=== PATIENT | female | born 1970 | race Caucasian/White ===

== ENCOUNTER 2023-01-11 14:06 | Outpatient (AMB) | payer BC, SELFPAY ==
--- NOTE | 2023-01-11 14:13 | A.SPINEOV_ITS ---
Intake Intake Visit Reasons: Lower back and neck pain Intake Note: Ms. Kam is here today c/o low back and neck pain. MRI done @ [facility]/brought disc. 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 HPI: This patient states that she has progressive lumbar back pain that radiates down both legs. The symptoms started 15 years ago. In addition to the pain she complains of tingling and numbness down the legs to the feet. The pain is constantly present and independent of activities such as walking or standing. She has tried physical therapy chiropractic therapy injections in the form of epidural and radiofrequency ablations and acupuncture. PMH: Hypertension, sleep apnea, interstitial cystitis, migraine, partial thyroidectomy, cervical fusion, hysterectomy, parotidectomy, occipital nerve stimulator Medications: Neurontin, Cymbalta, Inderal, lisinopril, Synthroid, Estradiol patch, Zofran, Cyclobenzaprine, trazodone Allergies: Demerol, Compazine, Reglan, Phenergan, triptans Social history: Nonsmoker Physical Exam: Height 5 ft weight 140 lb. Flexion-extension of the lumbar spine shows no restrictions but does elicit pain with extension. His pain on palpation in lumbar region. Straight leg raise negative bilaterally. No motor sensory deficits. Radiological Studies: A CT scan of the lumbar spine at [facility] only contains axial images. A seems to be moderate spinal stenosis at L4-5. Obtained standing x-rays today with flexion-extension that show severe degenerative disc disease L4-5. No instability. Impression/Plan: This 52-year-old female is suffering from progressive debilitating back pain for which she exhausted all conservative treatments. I requested to add coronal and sagittal images to the CT scan for review. She will return to my office with those images to discuss treatment options. Thank you for allowing me to participate in your patients care. total time spent was 45 minutes in counseling ,coordination of plan, personal review of imaging, and subsequent plan Rico Garcia MD, PhD Spine Fellowship Trained Neurosurgeon Director, [facility] Orders: Orders XR lumbar spine 4V min Today M51.36 - Other intervertebral disc degeneration, lumbar region Coding Level of Care Code New Pt Level 4 (91375) Diagnoses Degeneration of lumbar intervertebral disc M51.36
== END 2023-01-11 15:06 | disposition home or self-care (01) ==
LOC: HO.HNS 14:07
PROVIDERS: Visit Provider Neurological Surgery
DX: M51.36 Other intervertebral disc degeneration, lumbar region (principal)
CPT/HCPCS: 99204

== ENCOUNTER 2023-01-11 14:06 | Outpatient (REF) | payer BC, SELFPAY ==
--- NOTE | ~2023-01-11 | XR_ITS ---
EXAMINATION: XR LUMBOSACRAL SPINE CLINICAL INFORMATION: Reason for Exam M51.36 - Other intervertebral disc degeneration, lumbar region COMPARISON: None TECHNIQUE: 4 views of the lumbar spine FINDINGS: Transitional lumbosacral anatomy with sacralization of L5 and rudimentary L5-S1 disc space and a broad-based right L5 transverse process pseudoarticulating with the sacrum. Vertebral body heights are maintained. Minimal retrolisthesis of L4 on L5. No instability on flexion extension views. Moderate degenerative disc disease at L4-L5 with loss of disc space height and endplate sclerosis. Paravertebral soft tissues are unremarkable. XR/XR lumbar spine 4V min IMPRESSION: 1. Transitional lumbosacral anatomy with sacralization of L5 and rudimentary L5-S1 disc space and a broad-based right L5 transverse process pseudoarticulating with the sacrum. If intervention is being considered recommend total spine radiographs to ensure accurate numbering. 2. Moderate degenerative disc disease at L4-L5 with loss of disc space height and endplate sclerosis. 3. Minimal retrolisthesis of L4 on L5.
== END 2023-01-11 14:07 | disposition home or self-care (01) ==
LOC: HO.HOSX 14:06
PROVIDERS: Visit Provider Neurological Surgery
DX: M51.36 Other intervertebral disc degeneration, lumbar region (principal)
CPT/HCPCS: 72110

== ENCOUNTER 2023-01-26 13:21 | Outpatient (AMB) | payer BC, SELFPAY ==
--- NOTE | 2023-01-26 13:27 | A.SPINEOV_ITS ---
Intake Intake Visit Reasons: F/u lumbar CT Scan Intake Note: Ms. Kam is here today to discuss the results to her CT Scan, done @ [facility]/brought disc. 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 As you know she suffering from buttock pain radiating down both legs more severe with walking and standing. This CT scan without contrast shows moderate L4-5 stenosis. The patient is going to send me the CT report for me to verify my findings. I discussed with her that a lumbar laminotomy is to address her leg symptoms are not any form of back pain. I will contact her after reviewing the CT report. Possibly, a CT myelogram is required if the radiologist and I disagree on the findings. Rico Garcia MD, PhD Spine Fellowship Trained Neurosurgeon Director, [facility] Coding Level of Care Code Est Pt Level 1 (19805) Diagnoses Degeneration of lumbar intervertebral disc M51.36 Lumbar stenosis with neurogenic claudication M48.062
== END 2023-01-26 13:58 | disposition home or self-care (01) ==
PROVIDERS: PCP Internal Medicine; Visit Provider Neurological Surgery
DX: M51.36 Other intervertebral disc degeneration, lumbar region (principal); M48.062 Spinal stenosis, lumbar region with neurogenic claudication

== ENCOUNTER → 2023-01-26 13:21 | Outpatient (BNVA) | payer BC, SELFPAY | PROVIDERS: PCP Internal Medicine; Visit Provider Neurological Surgery | DX: M51.36 Other intervertebral disc degeneration, lumbar region (principal); M48.062 Spinal stenosis, lumbar region with neurogenic claudication | CPT/HCPCS: 99211 ==

== ENCOUNTER 2023-04-19 11:36 | Day surgery (SDC) | payer BC, SELFPAY ==
--- NOTE | ~2023-04-19 | CT_ITS ---
EXAMINATION: CT LUMBAR SPINE WITHOUT CONTRAST CLINICAL INFORMATION: Post myelogram COMPARISON: None available. TECHNIQUE: Multidetector CT acquisitions of the lumbar spine after administration of intrathecal contrast. This CT examination was performed using dose optimization techniques as appropriate, variously including the following: *Automated exposure control *Adjustment of mA and/or kV according to patient size (this includes techniques or standardized protocols for targeted exams where dose is matched to indication/reason for exam; i.e. extremities or head) *Use of iterative reconstruction technique DLP; 388 mGy-cm FINDINGS: Transitional anatomy with sacralization of the L5. No acute fracture. The vertebral body heights are preserved. Mild disc height loss at L4-L5 with associated vacuum disc phenomenon. Very dense contrast material seen at the level of L4-L5 and extending caudally. Less dense contrast is seen extending cranially from L4-L5. There is however no loss of contrast opacification or significant effacement of contrast signal at any level through the spine. T12-L1: No significant spinal canal or neural foraminal narrowing. L1-L2: No significant spinal canal or neural foraminal narrowing. L2-L3: Mild diffuse disc bulge. No significant spinal canal or neural foraminal narrowing. L3-L4: Mild diffuse disc bulge. No significant spinal canal or neural foraminal narrowing. L4-L5: Left foraminal disc protrusion. No significant spinal canal stenosis. Mild left neural foraminal narrowing L5-S1: No significant spinal canal or neural foraminal narrowing. The paravertebral soft tissues are unremarkable. CT/CT lumbar spine wo IV con IMPRESSION: -Transitional anatomy with sacralization of the L5 vertebral body. -No loss of contrast opacification or significant effacement of contrast signal at any level through the spine to suggest significant spinal canal stenosis. -Mild left neural foraminal narrowing is seen at L4-L5.
--- NOTE | ~2023-04-19 | FL_ITS ---
Fluoroscopic lumbar myelogram Indication: Neurogenic claudication. Patient unable to get an MRI due to occipital stimulator Risks and benefits and possible complications were discussed with the patient and the consent form was signed. Patient was placed prone on the fluoroscopy table. The back was prepped and draped in routine sterile fashion. Betadine was used as a skin antiseptic. Utilizing fluoroscopic guidance, the L3-4 level was accessed with a 22 gauge quinkie spinal needle and clear CSF fluid was observed from the needle hub. A total of 10 mL of Isovue-M 200 was then injected through the needle and into the thecal sac. The needle was removed without immediate complications. Total fluoroscopy time: 1 minute 16 seconds FL/FL myelogram spine lumbosacral Impression: Fluoroscopic lumbar myelogram This procedure was performed by Champ Ross PA-C and supervised by Dr. Walters.
[2023-04-19 12:00] VITALS: BMI 28.9
[2023-04-19 12:07] LABS: MANUAL DIFF FLAG NO
[2023-04-19 12:10] LABS: Basophils Percent Auto 0.7 % (0-2); Eosinophils Absolute Auto 0.1 X10*3/uL (0.0-0.4); Eosinophils Percent Auto 1.7 % (0-4); Hematocrit 41.4 % (37.0-47.0); Hemoglobin 13.3 g/dl (12.0-16.0); Imm Gran Abs Auto 0.01 X10*3/uL (0.00-0.03); Imm Gran Pct Auto 0.2 % (0.0-0.4); Lymphocytes Absolute Auto 1.3 X10*3/uL (1.2-4.9); Lymphocytes Percent Auto 31.1 % (20-40); Mean Corpuscular HGB Conc 32.1 g/dl (31.0-35.0); Mean Corpuscular Hemoglobin 28.9 pg (27.0-33.0); Mean Corpuscular Volume 89.8 fL (80.0-98.0); Mean Platelet Volume 8.3 fL (9.4-12.3); Monocytes Absolute Auto 0.3 X10*3/uL (0.1-1.2); Monocytes Percent Auto 6.7 % (2-11); Neutrophils Absolute Auto 2.4 x10*3/uL (2.0-8.3); Neutrophils Percent Auto 59.6 % (45-73); Platelet Count 250 X10*3/uL (160-400); Red Blood Count 4.61 X10*6/uL (4.20-5.50); Red Cell Distribution Width 13.1 % (11.0-16.0)
[2023-04-19 12:18] LABS: INTERNATIONAL NORM RATIO 0.8 (0.9-1.1); Prothrombin Time 10.2 SEC (11.1-13.3)
[2023-04-19 12:21] LABS: Partial Thromboplastin Time 34.4 SEC (26.0-36.4)
[2023-04-19 14:00] VITALS: BP 126/79; PULSE 70; RESP 16; TEMP 36.6; O2SAT 95
[2023-04-19 14:15] VITALS: BP 131/83; PULSE 67; RESP 16; O2SAT 96
[2023-04-19 14:30] VITALS: BP 126/84; PULSE 70; RESP 16; O2SAT 94
[2023-04-19 14:45] VITALS: BP 126/79; PULSE 69; RESP 16; O2SAT 95
[2023-04-19 15:04] VITALS: BP 136/92; PULSE 79; RESP 16; TEMP 36.6; O2SAT 95
--- NOTE | 2023-05-12 11:55 | PC.NURSE ---
05/12/2023 chart review for QA
== END 2023-04-19 15:10 | disposition home or self-care (01) ==
PROVIDERS: Physician Assistant Surgical; Radiology Vascular & Interventional Radiology; PCP Internal Medicine; Visit Provider Physician Assistant
DX: M48.062 Spinal stenosis, lumbar region with neurogenic claudication (principal); M79.605 Pain in left leg; M79.604 Pain in right leg; Z96.82 Presence of neurostimulator; M51.36 Other intervertebral disc degeneration, lumbar region
CPT/HCPCS: 36415; 62304; 72131; 85025; 85610; 85730; Q9967

== ENCOUNTER → 2023-04-19 12:46 | Outpatient (BNV) | payer BC, SELFPAY | PROVIDERS: PCP Internal Medicine; Visit Provider Radiology Vascular & Interventional Radiology | DX: M48.062 Spinal stenosis, lumbar region with neurogenic claudication (principal); Z96.82 Presence of neurostimulator | CPT/HCPCS: 62304 ==

== ENCOUNTER 2023-05-13 15:01 | Outpatient (REF) | payer BC, SELFPAY | END 2023-05-13 15:02 | disposition home or self-care (01) | LOC: HO.HOSX 15:01 | PROVIDERS: PCP Internal Medicine; Visit Provider Physician Assistant | DX: M50.90 Cervical disc disorder, unspecified, unspecified cervical region (principal); M51.36 Other intervertebral disc degeneration, lumbar region; M48.062 Spinal stenosis, lumbar region with neurogenic claudication | CPT/HCPCS: 72050 ==

== ENCOUNTER 2023-05-13 15:01 | Outpatient (AMB) | payer BC, SELFPAY ==
--- NOTE | 2023-05-13 15:29 | MHC.OFFVIS ---
Intake Intake Visit Reasons: discuss sx Allergies meperidine [From Demerol] Allergy (Verified 04/19/23 12:04) Hallucinations metoclopramide [From Reglan] Allergy (Verified 04/19/23 12:04) Swelling prochlorperazine [From Compazine] Allergy (Verified 04/19/23 12:04) Swelling promethazine [From Phenergan] Allergy (Verified 04/19/23 12:04) Swelling Eanvpvpl-[id number] Antimigraine Agents Allergy (Verified 04/19/23 12:04) Swelling Assessment & Plan Assessment & Plan (1) Cervical disc disorder: Code(s): M50.90 - Cervical disc disorder, unspecified, unspecified cervical region (2) Degeneration of lumbar intervertebral disc: Code(s): M51.36 - Other intervertebral disc degeneration, lumbar region (3) Lumbar stenosis with neurogenic claudication: Code(s): M48.062 - Spinal stenosis, lumbar region with neurogenic claudication Plan Mrs Kam is following up here in the office today. She previously saw Dr. Garcia for complaints of back pain radiating into her hips. She had a CT myelogram done here at [place] which did not show any evidence of nerve compression. She has transitional anatomy and what we would call L5-S1 does have degenerative disc disease with some near meyg-xo-bkuo contact in the posterior edge of the disc space and laterally. She is absolutely frustrated with her quality of life. Standing and walking gives her constant backache which makes her want to sit down. She will even have trouble at night sometimes lying down. We discussed the fact that back pain can be very difficult to establish the source. She has responded to injections in the past but they affect were temporary. She does not recall where she had these done or the spinal level where they were done. It was somewhere in [place]. She is exhausted all the other typical conservative treatments and at this point is just relying on pain medications to get by including Neurontin, Cymbalta and Flexeril as well as skai-zvk-bbaayhf medications. Her quality of life is quite poor. I will review her imaging with Dr. Garcia and see if he would be willing to consider L5-S1 fusion to this disc space. We did briefly discuss the fact that the success rates her about 60-70%. I will get back to the patient after I review the films with Dr. Garcia. However, during our conversation she also reports a significant amount of neck pain. She had a previous anterior cervical fusion with Dr. Garcia. It was done when he was at [facility] about 10 or 12 years ago. She has been having significant neck pain with numbness of her arms. On my examination she is demonstrating no focal weakness but she does have hyperreflexia with a Justa sign on the right hand and a left 2 beats of clonus in her left foot. This could be a residual effect from a previous spinal cord injury dating back to before her original neck surgery, or a new disc herniation or adjacent segment disease around the fusion. Because she can not have an MRI because of a neuro stimulator for migraines, I will order another CT myelogram of the cervical spine to rule out spinal cord compression and myelopathy. Total amount of time spent in this visit was 20 minutes in discussion of symptoms, lumbar CT myelo imaging results and subsequent plan of care Cristino Garcia MD,PhD [facility] Orders: Orders CT lumbar post myelography 2 Weeks M50.90 - Cervical disc disorder, unspecified, unspecified cervical region XR cervical spine 4V Today M50.90 - Cervical disc disorder, unspecified, unspecified cervical region FL myelogram spine cervical Today M50.90 - Cervical disc disorder, unspecified, unspecified cervical region Coding Level of Care Code Est Pt Level 3 (32852) Diagnoses Cervical disc disorder M50.90 Degeneration of lumbar intervertebral disc M51.36 Lumbar stenosis with neurogenic claudication M48.062
== END 2023-05-13 15:45 | disposition home or self-care (01) ==
PROVIDERS: PCP Internal Medicine; Visit Provider Physician Assistant
DX: M50.90 Cervical disc disorder, unspecified, unspecified cervical region (principal); M51.36 Other intervertebral disc degeneration, lumbar region; M48.062 Spinal stenosis, lumbar region with neurogenic claudication
CPT/HCPCS: 99213

== ENCOUNTER 2023-09-07 09:27 | Day surgery (SDC) | payer BC, SELFPAY ==
--- NOTE | ~2023-09-07 | FL_ITS ---
FLUOROSCOPIC GUIDED CERVICAL MYELOGRAM INDICATION: Neck pain. Patient unable to have MRI. TECHNIQUE: Risks and benefits and possible complications were discussed with the patient and the consent form was signed. Patient was placed prone on the fluoroscopy table. The back was prepped and draped in routine sterile fashion. Betadine was used as a skin antiseptic. Utilizing fluoroscopic guidance, the L3-4 interlaminar space was accessed with a 22 gauge quinkie spinal needle and clear CSF fluid was observed. . 10 mL of Isovue-M 300 was then injected through the needle and contrast was observed entering the thecal sac. A small amount of contrast was also noted to enter the epidural/subdural space. The spine needle was then advanced another 0.5 cm, in which CSF was still observed flowing from the needle hub. The remaining 10 mL of Isovue-M 300 was then injected through the needle and contrast was observed entering the thecal sac, without any further filling of the epidural space. The needle was then removed. The fluoroscopic table was then tilted in the Trendelenburg position, and contrast was observed flowing towards the cervical spine. The patient was then sent to CT for post myelographic imaging. Total fluoroscopy time: 1 minute 32 seconds min. FL/FL myelogram spine cervical IMPRESSION: Successful intrathecal instillation of Isovue-M 300. Patient will be transported to CT for post myelographic imaging. This procedure was performed by Champ Ross PA-C and supervised by Dr. Kim.
--- NOTE | ~2023-09-07 | CT_ITS ---
EXAMINATION: CT CERVICAL SPINE WITHOUT CONTRAST CLINICAL INFORMATION: Neck pain, unable to have MRI COMPARISON: Cervical spine x-ray on 05/13/2023 TECHNIQUE: Multiple 3.0 and 0.6 mm axial images were obtained from base of skull to T1 levels after intrathecal injection of 10 mL Isovue-M 300. Sagittal and coronal 2.0 mm bone window images were reconstructed from axial image data. This CT examination was performed using dose optimization techniques as appropriate, variously including the following: *Automated exposure control *Adjustment of mA and/or kV according to patient size (this includes techniques or standardized protocols for targeted exams where dose is matched to indication/reason for exam; i.e. extremities or head) *Use of iterative reconstruction technique DLP: 266 mGy-cm FINDINGS: There is normal filling of the skull base cerebral spinal fluid space and cervical thecal sac with contrast. The visualized cervical spinal cord is normal in caliber and position. No extrinsic compression or displacement is seen. C1/C2: Bony structures are intact with normal alignment. There is no spinal stenosis. C2/C3: Bony structures are intact with normal alignment. There is no spinal stenosis. Bilateral C2/C3 neuroforamina are patent. Bilateral apophyseal joints are intact with normal alignment. C3/C4: Bony structures are intact with normal alignment. There is no spinal stenosis. Bilateral C3/C4 neuroforamina are patent. Bilateral apophyseal joints are intact with normal alignment. C4/C5: Bony structures are intact with normal alignment. There is no spinal stenosis. Bilateral C4/C5 neuroforamina are patent. Bilateral apophyseal joints are intact with normal alignment. C5/C6: Bony structures are intact with minimal anterior C5 on C6 displacement by 0.15 cm. There is no spinal stenosis. Bilateral C5/C6 neuroforamina are patent. Bilateral apophyseal joints are intact with normal alignment. C6/C7: Status post ACDF, fixation with integrated intervertebral fixation device is seen. Bony structures are intact with normal alignment. There is no spinal stenosis. Bilateral C6/C7 neuroforamina are patent. Bilateral apophyseal joints are intact with normal alignment. C7/T1: Bony structures are intact with normal alignment. There is no spinal stenosis. Bilateral C7/T1 neuroforamina are patent. Bilateral apophyseal joints are intact with normal alignment. Subcutaneous electrodes are partially visualized passing to the occipital region. CT/CT cervical spine wo IV con IMPRESSION: 1. Status post ACDF, fixation with integrated intervertebral fixation device at C6/C7. 2. Minimal grade 1 C5-C6 anterolisthesis. 3. No spinal or neural foraminal stenosis. 4. Subcutaneous electrodes are partially visualized passing to the occipital region.
[2023-09-07 09:45] VITALS: BP 103/76; PULSE 77; RESP 20; TEMP 36.9; O2SAT 97; BMI 26.4
[2023-09-07 11:55] VITALS: BP 133/86; PULSE 77; RESP 20; TEMP 36.6; O2SAT 100
[2023-09-07 12:10] VITALS: BP 120/86; PULSE 72; RESP 20; O2SAT 100
[2023-09-07] MEDS: ondansetron HCL 4 MG/2 ML VIAL IVPUSH (12:24)
[2023-09-07 12:25] VITALS: BP 112/77; PULSE 79; RESP 20; O2SAT 100
[2023-09-07] MEDS: Acetaminophen 325 MG TABLET 650 MG PO (12:29)
[2023-09-07] MEDS: oxyCODONE HCl Immed Release 5 MG TABLET PO ×2 (12:30→13:06)
[2023-09-07 12:40] VITALS: BP 112/73; PULSE 75; RESP 16; O2SAT 100
[2023-09-07 13:00] VITALS: BP 119/77; PULSE 75; RESP 17; TEMP 37; O2SAT 100
== END 2023-09-07 13:24 | disposition home or self-care (01) ==
PROVIDERS: Radiology Vascular & Interventional Radiology; PCP Internal Medicine; Visit Provider Physician Assistant
DX: M50.90 Cervical disc disorder, unspecified, unspecified cervical region (principal); M51.36 Other intervertebral disc degeneration, lumbar region; M48.062 Spinal stenosis, lumbar region with neurogenic claudication
CPT/HCPCS: 62302; 72125; J2405; Q9967

== ENCOUNTER → 2023-09-07 11:16 | Outpatient (BNV) | payer BC, SELFPAY | PROVIDERS: PCP Internal Medicine; Visit Provider Physician Assistant Surgical | DX: M50.90 Cervical disc disorder, unspecified, unspecified cervical region (principal) | CPT/HCPCS: 62302 ==

== ENCOUNTER 2023-09-22 14:52 | Outpatient (AMB) | payer BC, SELFPAY ==
--- NOTE | 2023-09-22 15:11 | HO.SPINEOV ---
Intake Visit Reasons: CT scan f/up Intake Note: Ms. Kam is here today to F/u on CT. 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 Allergies cephalexin [From Keflex] Allergy (Verified 09/22/23 15:12) Rash meperidine [From Demerol] Allergy (Verified 09/22/23 15:12) Hallucinations metoclopramide [From Reglan] Allergy (Verified 09/22/23 15:12) Swelling prochlorperazine [From Compazine] Allergy (Verified 09/22/23 15:12) Swelling promethazine [From Phenergan] Allergy (Verified 09/22/23 15:12) Swelling Xnwfgnux-3-SC4 Antimigraine Agents Allergy (Verified 09/22/23 15:12) Swelling Assessment & Plan Assessment & Plan (1) Cervical disc disorder: Code(s): M50.90 - Cervical disc disorder, unspecified, unspecified cervical region Category: Medical (2) Lumbar stenosis with neurogenic claudication: Code(s): M48.062 - Spinal stenosis, lumbar region with neurogenic claudication Category: Medical Plan Mrs Kam is back in the office today, we reviewed her CT myelogram. There is no official read on the study yet unfortunately, but to my eyes I do not see any evidence of spinal cord compression so I think we can focus on her lumbar spine for now. The severely collapsed disc we see on her lumbar CT was reviewed with Dr. Garcia previously. She has transitional anatomy but we are calling it L4-5. There is eqgk-kw-[id number] contact on the posterior endplates with signs of irritation on her CT done here at [place]. Dr. Garcia had previously thought that lumbar fusion would be appropriate. I will review with him the approaches that he thinks are best, this would either be a trans Kambin verses and anterior/oblique lumbar interbody fusion. Because of the transitional anatomy, the vascular is slightly close on the oblique approach, so he may need to do this with the vascular surgeon if he chooses the retroperitoneal approach. Once I review everything with him and have a plan, I will call the patient back. We did discuss at length risks, benefits of both surgical approaches as well as recovery. The patient is now at a point where things are severely debilitating for quality of life and she would like to proceed with surgery so I went ahead and gave her a date for late October for surgery and we can adjust if we need to have the vascular surgeon involved for the approach. Pt was given risk and benefits of surgery including but not limited to infection, hematoma , nerve injury,durotomy, weakness,bowel/bladder injury, persistent pain, as well as the option to continue with conservative treatment and patient wishes to proceed with surgery. Pt is aware they should stop their motrin, aspirin 7 days prior to surgery. All questions were answered to the best of our ability. If there is anything about this patients medical history that we have overlooked or concerns you have about us proceeding with surgery we would appreciate any input you can offer. Total amount of time spent in this visit was 20 minutes in discussion of symptoms, CT myelogram imaging results and subsequent plan of care Cristnio Garcia MD,PhD [facility] Coding Level of Care Code Est Pt Level 3 (53461) Diagnoses Cervical disc disorder M50.90 Lumbar stenosis with neurogenic claudication M48.062
== END 2023-09-22 15:54 | disposition home or self-care (01) ==
PROVIDERS: PCP Internal Medicine; Visit Provider Physician Assistant
DX: M50.90 Cervical disc disorder, unspecified, unspecified cervical region (principal); M48.062 Spinal stenosis, lumbar region with neurogenic claudication
CPT/HCPCS: 99213

== ENCOUNTER → 2023-09-22 14:52 | Outpatient (BNVA) | payer BC, SELFPAY | PROVIDERS: PCP Internal Medicine; Visit Provider Physician Assistant ==

== ENCOUNTER 2023-12-06 11:09 | Inpatient (IN) | payer BC, SELFPAY ==
[2023-11-21 12:59] VITALS: BP 120/82; PULSE 65; RESP 18; O2SAT 99; BMI 29.1
--- NOTE | 2023-12-05 10:44 | HO.ANESPROP2 ---
Documented by User: Stormy Rebollar NP 12/05/23 10:49 HPI - Anesthesia Eval Consult details Narrative: 53yo F for L4-5 Transkambin Lumbar Interbody Fusion Medically optimized per PCP No PAT anesthesia eval 11/21/23 Inspire ROB device in situ Neurostim implant for migraines in situ. Aware to bring remotes for both DOS PONV with good effect scop patch PMFSH Active Problems Active Problems: All Active Problems Cervical disc disorder (Acute) Lumbar stenosis with neurogenic claudication (Acute) Degeneration of lumbar intervertebral disc (Acute) Past Medical History Medical History Neuropathy Family history of anesthesia complication Postoperative nausea C. difficile colitis Back pain Arthritis Thyroid cancer Peptic ulcer GERD (gastroesophageal reflux disease) Interstitial cystitis Sleep apnea Spinal stenosis Migraines Presence of neurostimulator Hypothyroid HTN (hypertension) Surgical History Surgical History History of bladder surgery Hx of cystoscopy History of esophagogastroduodenoscopy (EGD) H/O colonoscopy Hx of parotidectomy Hx of hysterectomy History of fusion of cervical spine Hx of partial thyroidectomy History of tonsillectomy Social History Social History Are you a primary animal care supervisor to a significant other at home: No Do you presently have visiting nurse or other home services: No Patient Tobacco Use Status: Never used Tobacco Have you been hit, kicked, punched, or otherwise hurt by someone within the past year? If so, by whom?: No Are you DNR?: No Advance Directives Information Provided: Yes (as above noted-advised to bring copy DOS) Advance Directives on File: No Recently lost weight without trying: No Eating poorly because of decreased appetite: No Nutrition Risks: No Nutritional Risk FDLMP: had hysterectomy Poor oral hygiene: No (lower permanent retainer) Meds Allergies Allergy/AdvReac Type Severity Reaction Status Date / Time cephalexin [From Keflex] Allergy Intermediate Rash Verified 11/18/23 11:59 meperidine [From Demerol] Allergy Intermediate Hallucinati Verified 11/18/23 11:59 ons metoclopramide [From Reglan] Allergy Intermediate Swelling Verified 11/18/23 11:59 prochlorperazine Allergy Intermediate Swelling Verified 11/18/23 11:59 [From Compazine] promethazine [From Phenergan] Allergy Intermediate Swelling Verified 11/18/23 11:59 [id number] Antimigraine Allergy Intermediate Swelling Verified 11/18/23 11:59 Agents narcotic sensitivity Allergy Mild Itching Uncoded 11/21/23 12:45 (takes benadryl w/narcotics to relieve itching) Home Medications ?Medication ?Instructions ?Recorded ?Confirmed ?Last Taken ?Type amlodipine 5 mg tablet 5 mg PO BEDTIME 09/07/23 11/21/23 09/06/23 History chlorthalidone 25 mg tablet 25 mg PO QAM 09/07/23 11/21/23 Unknown History duloxetine 60 mg capsule,delayed 120 mg PO QAM 09/07/23 11/21/23 09/07/23 History release estradiol 0.025 mg/24 hr 1 patch transdermal 2XW 09/07/23 11/21/23 Unknown History semiweekly transdermal patch gabapentin 300 mg capsule 600 mg PO TID 09/07/23 11/21/23 09/07/23 History lorazepam 0.5 mg tablet 0.5 mg PO BID PRN Anxiety 09/07/23 11/21/23 Unknown History mirabegron 50 mg tablet,extended 50 mg PO QAM 09/07/23 11/21/23 Unknown History release 24 hr (Myrbetriq) ubrogepant 100 mg tablet (Ubrelvy) 100 mg PO ONCE PRN Migraine 09/07/23 11/21/23 Unknown History Headache dihydroergotamine (Trudhesa) 0.725 mg intranasal QWEEK PRN 11/21/23 11/21/23 Unknown History Migraine Headache eptinezumab-jjmr 100 mg/mL 100 mg IV [id number] 11/21/23 11/21/23 Unknown History intravenous solution (Vyepti) ketorolac 60 mg/2 mL intramuscular 30 mg IM Q6-8H PRN Migraine 11/21/23 11/21/23 Unknown History syringe Headache levothyroxine 37.5 mcg capsule 37.5 mcg PO DAILY 11/21/23 11/21/23 Unknown History lisinopril 40 mg tablet 40 mg PO BEDTIME 11/21/23 11/21/23 Unknown History Exam Height,Weight and Vital Signs: Height 5 ft Weight 67.585 kg Last Vital Signs Pulse 65 11/21/23 12:59 Resp 18 11/21/23 12:59 BP 120/82 11/21/23 12:59 Pulse Ox 99 11/21/23 12:59 O2 Del Method Room Air 11/21/23 12:59 Pertinent Lab Results Pertinent Lab Results: Laboratory Tests 11/21/23 13:55 Blood Type O Positive Antibody Screen NEGATIVE CBC and BMP 10/2023 from outside facility WNL Narrative Narrative: EKG 10/2023 NSR @ 67 Assessment and Plan Assessment Anesthesia Assessment: Chart Reviewed Documented by User: Blanche James MD 12/06/23 10:27 PMFSH Past Medical History Medical History Neuropathy Family history of anesthesia complication Postoperative nausea C. difficile colitis Back pain Arthritis Thyroid cancer Peptic ulcer GERD (gastroesophageal reflux disease) Interstitial cystitis Sleep apnea Spinal stenosis Migraines Presence of neurostimulator Hypothyroid HTN (hypertension) Family History Family history of problems with anesthesia: No Surgical History Surgical History History of bladder surgery Hx of cystoscopy History of esophagogastroduodenoscopy (EGD) H/O colonoscopy Hx of parotidectomy Hx of hysterectomy History of fusion of cervical spine Hx of partial thyroidectomy History of tonsillectomy History of Problems with Anesthesia: No Social History Social History Are you a primary animal care supervisor to a significant other at home: No Do you presently have visiting nurse or other home services: No Patient Tobacco Use Status: Never used Tobacco Have you been hit, kicked, punched, or otherwise hurt by someone within the past year? If so, by whom?: No Are you DNR?: No Advance Directives Information Provided: Yes (as above noted-advised to bring copy DOS) Advance Directives on File: No Recently lost weight without trying: No Eating poorly because of decreased appetite: No Nutrition Risks: No Nutritional Risk FDLMP: had hysterectomy Poor oral hygiene: No (lower permanent retainer) Meds Allergies Allergy/AdvReac Type Severity Reaction Status Date / Time cephalexin [From Keflex] Allergy Intermediate Rash Verified 11/18/23 11:59 meperidine [From Demerol] Allergy Intermediate Hallucinati Verified 11/18/23 11:59 ons metoclopramide [From Reglan] Allergy Intermediate Swelling Verified 11/18/23 11:59 prochlorperazine Allergy Intermediate Swelling Verified 11/18/23 11:59 [From Compazine] promethazine [From Phenergan] Allergy Intermediate Swelling Verified 11/18/23 11:59 [id number] Antimigraine Allergy Intermediate Swelling Verified 11/18/23 11:59 Agents narcotic sensitivity Allergy Mild Itching Uncoded 11/21/23 12:45 (takes benadryl w/narcotics to relieve itching) Home Medications ?Medication ?Instructions ?Recorded ?Confirmed ?Last Taken ?Type amlodipine 5 mg tablet 5 mg PO BEDTIME 09/07/23 11/21/23 09/06/23 History chlorthalidone 25 mg tablet 25 mg PO QAM 09/07/23 11/21/23 Unknown History duloxetine 60 mg capsule,delayed 120 mg PO QAM 09/07/23 11/21/23 09/07/23 History release estradiol 0.025 mg/24 hr 1 patch transdermal 2XW 09/07/23 11/21/23 Unknown History semiweekly transdermal patch gabapentin 300 mg capsule 600 mg PO TID 09/07/23 11/21/23 09/07/23 History lorazepam 0.5 mg tablet 0.5 mg PO BID PRN Anxiety 09/07/23 11/21/23 Unknown History mirabegron 50 mg tablet,extended 50 mg PO QAM 09/07/23 11/21/23 Unknown History release 24 hr (Myrbetriq) ubrogepant 100 mg tablet (Ubrelvy) 100 mg PO ONCE PRN Migraine 09/07/23 11/21/23 Unknown History Headache dihydroergotamine (Trudhesa) 0.725 mg intranasal QWEEK PRN 11/21/23 11/21/23 Unknown History Migraine Headache eptinezumab-jjmr 100 mg/mL 100 mg IV [id number] 11/21/23 11/21/23 Unknown History intravenous solution (Vyepti) ketorolac 60 mg/2 mL intramuscular 30 mg IM Q6-8H PRN Migraine 11/21/23 11/21/23 Unknown History syringe Headache levothyroxine 37.5 mcg capsule 37.5 mcg PO DAILY 11/21/23 11/21/23 Unknown History lisinopril 40 mg tablet 40 mg PO BEDTIME 11/21/23 11/21/23 Unknown History Exam Airway Mallampati Class: II TM Dist: >3cm Neck ROM: Full Heart: rrr Lungs: cta Assessment and Plan Assessment Anesthesia Assessment: Anesthesia Plan Discussed Final Anesthetic Review Family History of Problems with Anesthesia: No History of Problems with Anesthesia: No NPO: Yes ASA Class: III Final Preanesthetic Review: No Changes in Pt Med Stat, Meds/Allgs Chart Reviewed, Consent Obtained/Reviewed and Anes Risks/Benef Reviewed Patient Risk: Intermediate Procedure Risk: Intermediate Anesthetic Plan Anesthetic Plan: GA (neuromonitoring per surgeon, ) Disposition: Standard PACU
[2023-12-06] VITALS (16 sets, daily range): BP systolic 93–124; BP diastolic 62–84; PULSE 69–91; RESP 12–24; TEMP 36.1–37; O2SAT 92–100; BMI 27.7
--- NOTE | ~2023-12-06 | FL_ITS ---
EXAMINATION: INTRAOPERATIVE FLUOROSCOPY LUMBAR SPINE CLINICAL INFORMATION: L4-L5 Transkambin Lumbar Interbody Fusion. COMPARISON: CT lumbar spine 04/19/2013. TECHNIQUE: Intraoperative fluoroscopic imaging was provided to Dr. Rico Garcia during L4-L5 Transkambin Lumbar Interbody Fusion. Total Radiographic Images: 4. Exposure Time: 2.05.5 minutes. Dose Area Product: 25.055 Gy-Cm2. CT Performed Intraoperatively: No. FINDINGS/ FL/FL guidance in OR IMPRESSION: Multiple intraoperative fluoroscopic images and/or radiographs demonstrate stages of L4-L5 Transkambin Lumbar Interbody Fusion. Please see Dr. Rico Garcia' operative note for complete details. Electronically signed by: Madhav Bell MD 12/07/2023 12:05 AM EDT
--- OUTSIDE RECORDS SUMMARY | 2023-12-06 11:13 | XMS_ITS | Continuity of Care Document ---
Author Organization [facility] [place] [address] [place] [address]- Care Team Providers Care Territory Sales Representative Name Role Phone Cole Dorado MD Primary Care Physician Encounter 07/26/23 - 08/02/23 [facility] [address], [address] [place] [address]- Attending Physician: Cole Dorado MD Admitting Physician: Cole Dorado MD Referring Physician: Cole Dorado MD Allergies, Adverse Reactions, Alerts Substance Reaction Severity Status doxycycline c-diff Active droperidol Tongue swelling Active Amerge Tongue swelling Active Maxalt tongue swells Active Keflex ITCHY AND RASH Active Imitrex tongue swells Active Phenergan Tongue swelling Active Compazine tongue swells Active Demerol hallucinates Active Reglan Tongue swelling Active Immunizations Given and Recorded Vaccine Date Status Refusal Reason pneumococcal 23-valent vaccine 12/04/14 Given Influenza Inactive (IM) (oldterm) 02/21/07 Given Medications acetaminophen/butalbital/caffeine 325 mg-50 mg-40 mg oral tablet 1 tablet, By Mouth, Every 4 hours, PRN Headache Start Date: 08/31/18 Status: Ordered Biotin By Mouth, Daily, 0 Refills, Maintenance, 12/22/22 9:11:00 EDT, Partial fill upon patient request ifthe prescription is for a schedule II opioid drug. Start Date: 12/22/22 Status: Ordered Calcium Calcium, 0 Refills, Maintenance, 12/22/22 9:11:00 EDT Start Date: 12/22/22 Status: Ordered Cyclobenzaprine By Mouth, 0 Refills, Maintenance, 12/22/22 9:11:00 EDT, Partial fill upon patient request if the prescription is for a schedule II opioid drug. Start Date: 12/22/22 Status: Ordered Cymbalta 60 mg oral enteric coated capsule 2 capsule = 120 mg, By Mouth, Daily in AM, 0 Refills, Maintenance, 04/15/17 10:01:14 EST Start Date: 04/15/17 Status: Ordered Estradiol Patch 0.025 mg/24 hours twice weekly transdermal film, extended release See Instructions, APPLY 1 PATCH TOPICALLY EVERY TUESDAY AND TUESDAY, # 8 patch, 12 Refills, Maintenance, 10/21/22 14:40:00 EDT, [facility], 0, APPLY 1 PATCH TOPICALLY EVERY TUESDAY AND TUESDAY, 153, cm, 07/29/22 15:06:00 EDT, Height... Start Date: 10/21/22 Status: Ordered Flonase 1 sprays, Nares, Both, Daily in AM, 0 Refills, Maintenance, 11/11/15 10:39:04 EDT Start Date: 11/11/15 Status: Ordered gabapentin 300 mg oral capsule 600 mg, 2, capsule, By Mouth, Daily at bedtime, Refills 0, Maintenance, 02/20/16 14:25:32 EST Start Date: 02/20/16 Status: Ordered Karla 1 tablet, By Mouth, Daily in AM, 0 Refills, Maintenance, 04/24/15 14:09:11 EST Start Date: 04/24/15 Status: Ordered Inderal LA 160 mg oral capsule, extended release 160 mg, 1, capsule, By Mouth, Daily at bedtime, takes for hypertension., # 30 capsule, 0 Refills, Maintenance Start Date: 03/12/07 Stop Date: 04/11/07 Status: Ordered levothyroxine 37.5 mcg (0.0375 mg)/mL oral solution 1 mL = 37.5 mcg, By Mouth, Daily in AM, 0 Refills, Maintenance, 06/08/21 9:21:00 EDT, Partial fill upon patient request if the prescription is for a schedule II opioid drug. Start Date: 06/08/21 Status: Ordered lisinopril 5 mg oral tablet 1 tablet = 5 mg, By Mouth, Daily at bedtime, # 30 tablet, 0 Refills, Maintenance, 01/28/16 14:05:52EST, Tablet Start Date: 04/24/15 Status: Ordered LORazepam 0.5 mg oral tablet 1 tablet = 0.5 mg, By Mouth, 2 times a day, as needed for anxiety. Start Date: 08/31/18 Status: Ordered mirabegron 50 mg oral tablet, extended release 1 tablet = 50 mg, By Mouth, Daily, do not crush or chew, # 90 tablet, 6 Refills, Maintenance, 12/22/22 9:27:00 EDT, ER Tablet, [facility], Partial fill upon patient request if the prescription is for a schedule II opioid drug., 153,... Start Date: 12/22/22 Status: Ordered Multivitamin Tablet 1 tablet, By Mouth, Daily in AM, 0 Refills, Maintenance, 01/16/14 16:24:24 EDT, Tablet Start Date: 01/16/14 Status: Ordered Myrbetriq 25 mg oral tablet, extended release 1 tablet = 25 mg, By Mouth, Daily, # 90 tablet, 3 Refills, Maintenance, 05/16/17 16:26:40 Start Date: 05/16/17 Status: Ordered Nexium 20 mg oral enteric coated capsule 1 capsule = 20 mg, By Mouth, Daily at bedtime, # 30 capsule, 0 Refills, Maintenance, 01/30/17 0:07:11 EDT, EC Capsule Start Date: 01/30/17 Status: Ordered Toradol Inj 0 Refills, Maintenance, 12/22/22 9:12:00 EDT, Partial fill upon patient request if the prescriptionis for a schedule II opioid drug. Start Date: 12/22/22 Status: Ordered traZODone 100 mg oral tablet 2 tablets, By Mouth, Daily at bedtime, # 180 tablet, Refills 0, Maintenance, 06/08/21 9:22:00 EDT, Partial fill upon patient request if the prescription is for a schedule II opioid drug. Start Date: 06/08/21 Status: Ordered Trudhesa = 1.45 mg, Once, 0 Refills, Maintenance, 12/22/22 9:20:00 EDT, Partial fill upon patient request ifthe prescription is for a schedule II opioid drug. Start Date: 12/22/22 Status: Ordered Ubrelvy By Mouth, Once, 0 Refills, Maintenance, 12/22/22 9:12:00 EDT, Partial fill upon patient request if the prescription is for a schedule II opioid drug. Start Date: 12/22/22 Status: Ordered Vit B Complex Tablet 0 Refills, Maintenance, 12/22/22 9:12:00 EDT, Partial fill upon patient request if the prescriptionis for a schedule II opioid drug. Start Date: 12/22/22 Status: Ordered Vyepti = 100 mg, IV Infusion, Every 3 months, 0 Refills, Maintenance, 12/22/22 9:12:00 EDT, Partial fill upon patient request if the prescription is for a schedule II opioid drug. Start Date: 12/22/22 Status: Ordered Problem List Condition Confirmation Course Effective Dates Status Health Status Informant Amblyopia Confirmed Active Back problem Confirmed Active BV (bacterial vaginosis), recurrent Confirmed Active Basal cell carcinoma left side of face Confirmed Active Benign essential hypertension Confirmed Active Last pap smear 08/16/13 negative with negative HPV. Status post total hysterectomy 01/25/14 with benign pathology report. No further paps needed Confirmed Active Vaginal yeast infections, recurrent Confirmed Active Chronic fatigue Confirmed Active Chronic headaches Confirmed Active Chronic pelvic pain in female Confirmed Active Depression Confirmed Active Controlled substance agreement signed with Dr. Ross 07/29/2022 Confirmed Active Dyspareunia Confirmed Active Persistent depressive disorder with anxious distress, currently mild Confirmed Active Endometriosis - diagnosed by laparoscopy 09/24/04 Confirmed Active GERD (gastroesophageal reflux disease) Confirmed Active Vulvodynia Confirmed 08/21/09 Active IBS (irritable bowel syndrome) Confirmed Active Lactose intolerance Confirmed Active History of papillary thyroid cancer, status post right hemithyroidectomy 09/22/16. She does not require thyroid replacement, left side has adequate function Confirmed Active Migraine Confirmed Active Urinary incontinence, mixed. 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 Margins negative. Confirmed Active Obstructive sleep apnea Confirmed Active Other Pain Disorders Related to Psychological Factors Confirmed Active Overweight Confirmed Active Perimenopausal symptoms. On Nor-QD, Cymbalta, and gabapentin. Also on topical estradiol for vaginal dryness Confirmed Active Primary insomnia Confirmed Active Frequent UTI Confirmed Active Urinary Frequency Confirmed Active Results Radiology Reports * Exam Date Time Procedure Performing Provider Status 07/26/23 10:[address] Head/Brain W/O Contrast Vooris, He idi A; Auth (Verified) Notes: (CT Head/Brain W/O Contrast) Reason For Exam: R27.0 RESULT: CT Head/Brain W/O Contrast CT Head/Brain W/O Contrast INDICATION: Ataxia. Patient has history of superficial parotidectomy for mucosal epidermoid cancer.No known trauma. TECHNIQUE: Noncontrast head CT using axial technique and reconstructed in axial and coronal planes.Iterative reconstruction techniques are used to optimize dose and image quality. CTDIvol Head: 60.14 mGy, DLP Head: 866 mGy*cm. COMPARISON: 12/13/2017 FINDINGS: Porcelain Enamel Sprayer view findings, lines and tubes: None. BRAIN AND EXTRA-AXIAL SPACES: No parenchymal hemorrhage, midline shift, or mass effect. Bran-white matter differentiation is wellpreserved. No acute infarct. Negative insular ribbon and hyperdense vessel signs. Ventricles, sulci, and basilar cisterns are normal. Redemonstrated is a 4 mm round calcification along the left superior aspect of the fourth ventricle, stable from 2015, probably asymmetric carotid plexus calcification. No white matter lesions. No subarachnoid hemorrhage. No subdural or epidural collection. CALVARIUM, SKULL BASE, AND SOFT TISSUES: No fractures or suspicious bony lesions. Postsurgical changes from prior maxillary antrostomies again noted. The paranasal sinuses and mastoid air cells are clear. Visualized orbits and globes are intact. Metallic stimulator leads again project over the subcutaneous fat in the upper neck and suboccipital scalp with streak artifacts. Atrophic left parotid gland, presumably related to prior surgery. IMPRESSION: No CT evidence of acute intracranial abnormality per WSN: [id number] Ordering Physician: Cole Dorado Dictated By: Noelle Pond MD Dictated Date/Time: 07/26/23 10:44 a Reviewed By: Noelle Pond MD Signed By: Noelle Pond MD Signed Date/Time: 07/26/23 10:44 am Transcribed By: J LUIS Transcribed Date/Time: 07/26/23 10:39 am Social History Social History Type Response Smoking Status Never smoker; Tobacc o user in household: No entered on: 01/28/16 Sex Patient Care team information Care Team Personnel Name: Erik Waddell DO Position: [facility] CLINICAL COUNSELOR Member Role: [employer] CLINICAL COUNSELOR Physician Address: Address: [address] [place] [address]- [place] Name: Estrada FLORES, Cole Garcia Position: [facility] Physician - Primary Care Member Role: PCP Address: Address: [address] [place] [id number]- Name: Sary Isaac RN Position: [facility] RN Member Role: Primary Care Nurse Name: Martínez DUNBAR, Lalitha Huff Position: [facility] Onco RN Member Role: Primary Care Nurse Care Team Related Persons Name: KINA SHABAZZ Address: home [id number] [place] [address] Name: GUEVARA SHABAZZ Address: home [address] [place] [address]
--- OUTSIDE RECORDS SUMMARY | 2023-12-06 11:13 | XMS_ITS | Continuity of Care Document ---
Author Organization [facility] Armond chano Address [address] [place] [address] [address] [place] [address]- Care Team Providers Care User Interface Developer Name Role Phone Cole Dorado MD Primary Care Physician [place] [facility] [place] 07/[place] [facility] [address] [place], [place] [address] Attending Physician: Josh Leslie MD Referring Physician: Cole Dorado MD Allergies, Adverse Reactions, Alerts Substance Reaction Severity Status doxycycline c-diff Active droperidol Tongue swelling Active Amerge Tongue swelling Active Maxalt tongue swells Active Keflex ITCHY AND RASH Active Demerol hallucinates Active Imitrex tongue swells Active Phenergan Tongue swelling Active Compazine tongue swells Active Reglan Tongue swelling Active Immunizations Given and Recorded Vaccine Date Status Refusal Reason pneumococcal 23-valent vaccine 12/04/14 Given Influenza Inactive (IM) (oldterm) 02/21/07 Given Medications acetaminophen/butalbital/caffeine 325 mg-50 mg-40 mg oral tablet 1 tablet, By Mouth, Every 4 hours, PRN Headache Start Date: 08/31/18 Status: Ordered Cymbalta 60 mg oral enteric coated capsule 2 capsule = 120 mg, By Mouth, Daily in AM, 0 Refills, Maintenance, 04/15/17 10:01:14 EST Start Date: 04/15/17 Status: Ordered Flonase 1 sprays, Nares, Both, [...] bedtime, # 30 tablet, 0 Refills, Maintenance, 04/24/15 14:05:52EST, Tablet Start Date: 04/24/15 Status: Ordered LORazepam 0.5 mg oral tablet 1 tablet = 0.5 mg, By Mouth, 2 times a day, as needed for anxiety. Start Date: 08/31/18 Status: Ordered metronidazole topical 0.75% gel with applicator 1 applicator, Vaginally, Every Tuesday and , for 26 week(s), For recurrent BV treat with metronidazole gel 0.75 percent or an oral nitroimidazole for 7 to 10 days followed by twice weekly dosing of gel for four to six months, # 210 Gm, 5 Refill... Start Date: 02/05/27 Stop Date: 02/01/30 Status: Ordered metronidazole topical 0.75% gel with applicator 1 applicator, Vaginally, Every Tuesday and , for 26 week(s), For recurrent BV treat with metronidazole gel 0.75 percent or an oral nitroimidazole for 7 to 10 days followed by twice weekly dosing of gel for four to six months, # 70 Gm, 5 Refills... Start Date: 02/27/21 Stop Date: 02/24/24 Status: Ordered Multivitamin Tablet 1 tablet, By [...] EC Capsule Start Date: 01/30/17 Status: Ordered norethindrone 0.35 mg oral tablet 1 tablet = 0.35 mg, By Mouth, Daily, # 90 tablet, 3 Refills, Maintenance, 05/14/21 18:21:00 EST, Tablet, [facility], 152.4, cm, 02/12/21 10:04:00 EST, Height, 61.36, kg, 01/07/21 13:11:00 EDT, Dry Weight Start Date: 05/14/21 Status: Ordered traZODone 100 mg oral tablet 2 tablets, By Mouth, Daily at bedtime, # 180 tablet, Refills 0, Maintenance, 06/08/21 9:22:00 EDT, Partial fill upon patient request if the prescription is for a schedule II opioid drug. Start Date: 06/08/21 Status: Ordered Problem List Condition Effective Dates Status Health Status Inform ant Amblyopia(Confirmed) Active Back problem(Confirmed) Active BV (bacterial vaginosis), recurrent(Confirmed) Active Basal cell carcinoma left si de of face(Confirmed) Active Benign essential hypertension(Confirmed) Active Last pap smear 08/16/13 negat alcides with negative HPV. Status post total hysterectomy 01/25/14 with benign pathology report. No further paps needed(Confirmed) Active Vaginal yeast infections, recurrent(Confirmed) Active Chronic fatigue(Confirmed) Active Chronic headaches(Confirmed) Active Chronic pelvic pain in female(Confirmed) Active Depression(Confirmed) Active Dyspareunia(Confirmed) Active Persistent depressive disord er with anxious distress, currently mild(Confirmed) Active Endometriosis - diagnosed by laparoscopy 09/24/04(Confirmed) Active GERD (gastroesophageal reflu x disease)(Confirmed) Active Vulvodynia(Confirmed) 08/21/09 Active IBS (irritable bowel syndrome)(Confirmed) Active Lactose intolerance(Confirmed) Active History of papillary thyroid cancer, status post right hemithyroidectomy 09/22/16. She does not require thyroid replacement, left side has adequate function(Confirmed) Active Migraine(Confirmed) Active Urinary incontinence, mixed. Has seen urogynecology(Confirmed) Active History of left parotid neop lasm, status post surgery 07/11/15. 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 Margins negative.(Confirmed) Active Other Pain Disorders Related to Psychological Factors(Confirmed) Active Overweight(Confirmed) Active Perimenopausal symptoms. On Nor-QD, cymbalta, and gabapentin. Also on topical estradiol for vaginal dryness(Confirmed) Active Primary insomnia(Confirmed) Active Frequent UTI(Confirmed) Active Urinary Frequency(Confirmed) Active Social History Social History Type Response Smoking Status Never smoker; Tobacc o user in household: No entered on: 01/28/16 Sex
--- OUTSIDE RECORDS SUMMARY | 2023-12-06 11:13 | XMS_ITS | Continuity of Care Document ---
Author Organization [facility] Address [address] [place] [address]- Care Team Providers Care Enterprise Records Analyst Name Role Phone Cole Dorado MD Primary Care Physician Encounter [facility] Date(s): 06/23/22 - 07/23/22 [facility] [address] [place] [address]- [place] Allergies, Adverse Reactions, Alerts Substance Reaction Severity [...] for anxiety. Start Date: 08/31/18 Status: Ordered Multivitamin Tablet 1 tablet, By [...] Date: 06/08/21 Status: Ordered Problem List Condition Confirmation Course [...] in female Confirmed Active Depression Confirmed Active Dyspareunia Confirmed Active Persistent depressive [...] Overweight Confirmed Active Perimenopausal symptoms. On Nor-QD, cymbalta, and gabapentin. Also on topical estradiol for vaginal dryness Confirmed Active Primary insomnia Confirmed Active Frequent UTI Confirmed Active Urinary Frequency Confirmed Active Social History Social History Type Response Smoking Status Never smoker; Tobacc o user in household: No entered on: 01/28/16 Sex Patient Care team information Care Team Personnel Name: Erik Waddell DO Position: [facility] NATIONAL INVESTIGATIVE PRODUCER MD Member Role: [employer] NATIONAL INVESTIGATIVE PRODUCER Physician Address: Address: [address] [place] [address] [facility] [place] [address]- [place] Name: Cole Dorado MD Position: [facility] Physician (General Medicine) Member Role: PCP Address: Address: [address] [place] [address]- Name: Sary Isaac RN Position: [facility] RN Member Role: Primary Care Nurse Name: Martínez DUNBAR, Lalitha Huff Position: [facility] Onco RN Member Role: Primary Care Nurse Care Team Related Persons Name: KINA SHABAZZ Address: home [address] [address] Name: GUEVARA SHABAZZ Address: home [address] [place] [address]
--- OUTSIDE RECORDS SUMMARY | 2023-12-06 11:13 | XMS_ITS | Continuity of Care Document ---
Author Organization [facility] Armond chano Address [address] [place] [address] [address] [place] [address]- Care Team Providers Care Internet Network Specialist Name Role Phone Estrada FLORES, Cole Garcia Primary Care Physician Encounter [place] Date(s): 06/19/21 - 06/26/21 [facility] [address] [place], [place] [address] Attending Physician: Artemio JOHNSTON, Mely Markham Allergies, Adverse Reactions, Alerts Substance Reaction Severity [...] Active Frequent UTI(Confirmed) Active Urinary Frequency(Confirmed) Active Vital Signs Most recent to oldest [Reference Range]: 1 Height 152.40 cm (06/19/21 2:47 PM) Weight 63.63 kg (06/19/21 2:47 PM) Body Mass Index [18.5-24.99] 27.4 *H* (06/19/21 2:47 PM) Temperature [96.8-100.4 DegF] 97.9 DegF (06/19/21 2:47 PM) Temperature Route Temporal (06/19/21 2:47 PM) Weight Obtained Via Standing scale (06/19/21 2:47 PM) Social History Social History Type Response Smoking Status Never smoker; Tobacc o user in household: No entered on: 01/28/16 Sex
--- OUTSIDE RECORDS SUMMARY | 2023-12-06 11:13 | XMS_ITS | Continuity of Care Document ---
Author Organization [facility] Last [facility] Address [address] [facility] [address], [address] [place] [address]- Care Team Providers Care 3D Specialist Name Role Phone Cole Dorado MD Primary Care Physician Encounter [facility] Date(s): 12/03/22 - [facility] [address] [facility], [address] [place], [place] [address] Allergies, Adverse Reactions, Alerts Substance Reaction Severity [...] Team Personnel Name: Erik Waddell DO Position: [facility] OIL EXPELLER MD Member Role: Lifetime OIL EXPELLER Physician Address: Address: [address] [place], [place] [address]s [facility] Knitting Machine Operator [place] [address]- Name: Cole Dorado MD Position: [facility] Physician - Primary Care Member Role: PCP Address: Address: [address] [place] [address]- Name: Sary Isaac RN Position: [facility] RN Member Role: Primary Care Nurse Name: Lalitha Soliz RN Position: [facility] Onco RN Member Role: Primary Care Nurse Care Team Related Persons Name: KINA SHABAZZ Address: home [address] [address] Name: GUEVARA SHABAZZ Address: home [address] [place] [address]
--- OUTSIDE RECORDS SUMMARY | 2023-12-06 11:13 | XMS_ITS | Continuity of Care Document ---
Author Organization [facility] Address [address] [facility], 4t [place] [address]- Care Team Providers Care Metal Wire Coating Operator Name Role Phone Cole Dorado MD Primary Care Physician Encounter [facility] Date(s): 05/12/20 - 06/11/20 [facility] [address] [facility], 4th [address] [place], [place] [address] Attending Physician: Admtr, Ar8 Allergies, Adverse Reactions, Alerts Substance Reaction Severity Status doxycycline c-diff Active droperidol Tongue swelling Active Demerol hallucinates Active Amerge Tongue swelling Active Maxalt tongue [...] PRN Headache Start Date: 08/31/18 Status: Ordered carbidopa-levodopa 25 mg-250 mg oral tablet 1 tablet, By Mouth, Daily, with supper, 0 Refills, Maintenance, 08/31/18 8:22:03 EDT Start Date: 08/31/18 Status: Ordered Cymbalta 60 mg oral enteric coated capsule 2 capsule = 120 mg, By Mouth, Daily, 0 Refills, Maintenance, 04/15/17 10:01:14 Start Date: 04/15/17 Status: Ordered ferrous sulfate 325 mg oral enteric coated tablet 325 mg, 1, tablet, By Mouth, 3 times a day, start 1 per day and increase as tolerated. Take with Vitamin C to help absorption, # 90 tablet, Refills 3, Tot. Refills 3, Maintenance, 01/16/20 8:32:00 EDT, Route to Pharmacy Electronically, [email or web address]... Start Date: 01/16/20 Status: Ordered Flonase 1 sprays, Nares, Both, Daily, 0 Refills, Maintenance, 11/11/15 10:39:04 EDT Start Date: 11/11/15 Status: Ordered gabapentin 300 mg oral capsule 600 mg, 2, capsule, By Mouth, Daily at bedtime, Refills 0, Maintenance, 02/20/16 14:25:32 Start Date: 02/20/16 Status: Ordered Karla By Mouth, Daily, 0 Refills, Maintenance, 04/24/15 14:09:11 EST Start Date: 04/24/15 Status: Ordered Inderal LA 160 mg oral capsule, extended release 160 mg, 1, capsule, By Mouth, Daily at bedtime, # 30 capsule, 0 Refills, Maintenance Start Date: 03/12/07 Stop Date: 04/11/07 Status: Ordered lisinopril 5 mg oral tablet 1 tablet = 5 mg, By Mouth, Daily, # 30 tablet, 0 Refills, Maintenance, 04/24/15 14:05:52, Tablet Start Date: 04/24/15 Status: Ordered LORazepam 0.5 mg oral tablet 1 tablet = 0.5 mg, By Mouth, 2 times a day, as needed Start Date: 08/31/18 Status: Ordered metronidazole topical 0.75% gel with applicator 1 applicator, Vaginally, Every Tuesday and , for 26 week(s), For recurrent BV treat with metronidazole gel 0.75 percent or an oral nitroimidazole for 7 to 10 days followed by twice weekly dosing of gel for four to six months, # 70 Gm, 5 Refills... Start Date: 07/18/19 Stop Date: 07/14/22 Status: Ordered metronidazole topical 0.75% gel with applicator 1 applicator, Vaginally, Every Tuesday and , for 26 week(s), For recurrent BV treat with metronidazole gel 0.75 percent or an oral nitroimidazole for 7 to 10 days followed by twice weekly dosing of gel for four to six months, # 210 Gm, 5 Refill... Start Date: 07/14/22 Stop Date: 07/10/25 Status: Ordered Multivitamin Tablet 1 tablet, By Mouth, Daily, 0 Refills, Maintenance, 01/16/14 16:24:24, Tablet Start Date: 01/16/14 Status: Ordered Myrbetriq 25 mg oral tablet, extended release 1 tablet = 25 mg, By Mouth, Daily, # 90 tablet, 3 Refills, Maintenance, 05/16/17 16:26:40 Start Date: 05/16/17 Status: Ordered Nexium 20 mg oral enteric coated capsule 1 capsule = 20 mg, By Mouth, Daily, # 30 capsule, 0 Refills, Maintenance, 01/30/17 0:07:11, EC Capsule Start Date: 01/30/17 Status: Ordered norethindrone 0.35 mg oral tablet 1 tablet = 0.35 mg, By Mouth, Daily, # 90 tablet, 3 Refills, Maintenance, 03/01/20 12:07:00 EST, [facility]t, [id number], 153, cm, 01/15/20 16:14:00 EDT, Height, 57, kg, 08/31/18 15:38:00 EDT, Dry Weight Start Date: 03/01/20 Status: Ordered Synthroid 0.025 mg oral tablet 1 tablet = 25 mcg, By Mouth, Daily, 0 Refills, Maintenance, 08/31/18 8:29:08 EDT Start Date: 08/31/18 Status: Ordered traZODone 50 mg oral tablet 50 mg, 1, tablet, By Mouth, Daily at bedtime, PRN, 1-2 tablets prn, # 15 tablet, Refills 0, Maintenance, Other, 01/11/18 20:02:41 EDT Start Date: 01/11/18 Status: Ordered Vitamin C 250 mg oral tablet 1 tablet = 250 mg, By Mouth, 3 times a day, To take with iron, # 90 tablet, 3 Refills, Maintenance,01/22/20 14:27:00 EDT, Tablet, [id number], 153, cm, 01/15/20 16:14:00 EDT, Height,57, kg, 08/31/18 15:38:00 EDT, Dry Weight Start Date: 01/22/20 Status: Ordered Problem List Condition Effective Dates Status Health Status Inform ant Amblyopia(Confirmed) Active Back problem(Confirmed) Active BV (bacterial vaginosis), recurrent(Confirmed) Active Benign essential hypertension(Confirmed) Active Last pap [...] recent to oldest [Reference Range]: 1 Height 152.00 cm (01/22/10 4:21 PM) Social History Social History Type Response Smoking Status Never smoker; Tobacc o user in household: No entered on: 01/28/16 Sex
--- OUTSIDE RECORDS SUMMARY | 2023-12-06 11:13 | XMS_ITS | Continuity of Care Document ---
Author Organization [facility] Address [address] [facility], [address] [place] [address]- Care Team Providers Care Rehab Director Occupational Therapist Name Role Phone Cole Dorado MD Primary Care Physician Encounter [facility] Date(s): 02/02/23 - 03/11/23 [facility] [address], 4th [address] [place], [place] [address] Attending Physician: Marcela Greenberg MD Admitting Physician: Marcela Greenberg MD Referring Physician: Cole Dorado MD Allergies, [...] Team Personnel Name: Erik Waddell DO Position: [facility] CAR INSPECTION AND REPAIR MANAGER MD Member Role: [employer]etime CAR INSPECTION AND REPAIR MANAGER Physician Address: Address: [address] [place] [address]- Name: Cole Dorado MD Position: [facility] Physician - Primary Care Member Role: PCP Address: Address: [address] [place] [address]- Name: Sary Isaac RN Position: [facility] RN Member Role: Primary Care Nurse Name: Martínez DUNBAR, Lalitha Huff Position: [facility] Onco RN Member Role: Primary Care Nurse Care Team Related Persons Name: KINA SHABAZZ Address: home [address] [address] Name: GUEVARA SHABAZZ Address: home [address] [place] [address]
--- OUTSIDE RECORDS SUMMARY | 2023-12-06 11:13 | XMS_ITS | Continuity of Care Document ---
Author Organization [facility] Armond chano Address [address] [place] [address] [address] [place] [address]- Care Team Providers Care Biology Adjunct Instructor Name Role Phone Cole Dorado MD Primary Care Physician Encounter [facility] Date(s): 03/13/20 - 04/12/20 [facility] [address] [place] [address]- Allergies, Adverse Reactions, Alerts Substance Reaction Severity [...] 01/16/20 8:32:00 EDT, Route to Pharmacy Electronically, [facility] Start Date: 01/16/20 Status: Ordered Flonase [...] Refills, Maintenance, 03/01/20 12:07:00 EST, [facility]t, [id number], 153, cm, 01/15/20 16:14:00 EDT, [...] tablet, 3 Refills, Maintenance,01/22/20 14:27:00 EDT, Tablet, [id number], 153, cm, 01/15/20 16:14:00 EDT, Height,57, kg, [...]
--- OUTSIDE RECORDS SUMMARY | 2023-12-06 11:13 | XMS_ITS | Continuity of Care Document ---
Author Organization [facility] Last [facility] Address [address] [facility], 4[address] [place] [address]- Care Team Providers Care Project Manager Industrial Name Role Phone Cole Dorado MD Primary Care Physician En[facility] Date(s): 12/02/22 - 01/01/23 [facility] [address] [facility], [address] [place], [place] [address] Allergies, Adverse Reactions, Alerts Substance Reaction Severity Status doxycycline c-diff Active Keflex ITCHY AND RASH Active droperidol Tongue swelling Active Amerge Tongue swelling Active Maxalt tongue swells Active Demerol hallucinates Active Imitrex tongue swells [...] Team Personnel Name: Erik Waddell DO Position: [facility] ENERGY EFFICIENCY FINANCE MANAGER MD Member Role: [employer]etime ENERGY EFFICIENCY FINANCE MANAGER Physician Address: Address: [address] [place], [place] [address]s [facility] Oil Burner [place] [address]- Name: Cole Dorado MD Position: [facility] Physician - Primary Care Member Role: PCP Address: Address: [address] [place] [address]- Name: Sary Isaac RN Position: [facility] RN Member Role: Primary Care Nurse Name: Lalitha Soliz RN Position: [facility] Onco RN Member Role: Primary Care Nurse Care Team Related Persons Name: KINA SHABAZZ Address: home [address] [address] Name: GUEVARA SHABAZZ Address: home [address] [place] [address]
--- OUTSIDE RECORDS SUMMARY | 2023-12-06 11:13 | XMS_ITS | Continuity of Care Document ---
Author Organization [facility] Last [facility] Address [address] [facility], 4[address] [place] [address]- Care Team Providers Care Equipment Tester Name Role Phone Cole Dorado MD Primary Care Physician Encounter [facility] Date(s): 11/03/23 - 12/03/23 [facility] [facility] [address] [facility], 4th [address] [place], [place] [address] Attending Physician: Admtr, Ar8 Allergies, Adverse Reactions, [...] Ordered Cyclobenzaprine By Mouth, 0 Refills, Maintenance, 09/27/23 9:11:00 EDT, Partial fill upon patient request if the prescription is for a schedule II opioid drug. Start Date: 12/22/22 Status: Ordered Cymbalta 60 mg oral enteric coated capsule 2 capsule = 120 mg, By Mouth, Daily in AM, 0 Refills, Maintenance, 04/15/17 10:01:14 EST Start Date: 04/15/17 Status: Ordered estradiol 0.05 mg/24 hours twice weekly transdermal film, extended release 1 patch, Topically, Every Tuesday and , # 24 patch, 3 Refills, Maintenance, 11/15/23 8:22:00EDT, [facility], Partial fill upon patient request if the prescription is for a schedule II opioid drug., 152, cm, 11/03/23 16:51:00... Start Date: 11/15/23 Status: Ordered Flonase 1 sprays, Nares, Both, Daily in AM, 0 Refills, Maintenance, 11/11/15 10:39:04 EDT Start Date: 11/11/15 Status: Ordered gabapentin 300 mg oral capsule 600 mg, 2, capsule, By Mouth, Daily at bedtime, Refills 0, Maintenance, 02/20/16 14:25:32 EST Start Date: 02/20/16 Status: Ordered Inderal LA 160 mg oral [...] 05/16/17 16:26:40 Start Date: 05/16/17 Status: Ordered pantoprazole 40 mg oral delayed release tablet 1 tablet = 40 mg, By Mouth, Daily, # 30 tablet, 0 Refills, Maintenance, 11/03/23 16:54:00 EDT, EC Tablet Start Date: 11/03/23 Status: Ordered Toradol Inj 0 Refills, Maintenance, [...] Amblyopia Confirmed Active Back problem Confirmed Active Bacterial vaginosis (BV), recurrent Confirmed Active Basal cell carcinoma left side of face Confirmed Active Hypertension Confirmed Active Last pap smear 08/16/13 negative [...] - diagnosed by laparoscopy 09/24/04 Confirmed Active Gastroesophageal reflux disease (GERD) Confirmed Active 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 On estradiol patch Confirmed Active Primary insomnia Confirmed Active Frequent urinary tract infections (UTIs) Confirmed Active Urinary frequency Confirmed Active Vital Signs Most recent to oldest [Reference Range]: 1 Height 152.00 cm (01/22/10 4:21 PM) Social History Social History Type Response Smoking Status Never smoker; Tobacc o user in household: No entered on: 01/28/16 Sex Radiology * Vandana FLORES , Rashi Chapa: REVIEW Event Display: Non Radiology Results Authored Date: Patient Care team information Care Team Personnel Name: Erik Waddell DO Position: [facility] HATCHERY LABORER MD Member Role: Lifetime HATCHERY LABORER Physician Address: Address: [address] [place] [address]- Name: Cole Dorado MD Position: [facility] Physician - Primary Care Member Role: PCP Address: Address: [address] [place] [address]- Name: Sary Isaac RN Position: [facility] RN Member Role: Primary Care Nurse Name: Martínez DUNBAR, Lalitha Huff Position: [facility] Onco RN Member Role: Primary Care Nurse Care Team Related Persons Name: KINA SHABAZZ Address: home [address] [facility] [address] [place] [address] Name: GUEVARA SHABAZZ Address: home [address] [place] [address]
--- OUTSIDE RECORDS SUMMARY | 2023-12-06 11:13 | XMS_ITS | Continuity of Care Document ---
Author Organization [facility] Address [address] [place] [address]- Care Team Providers Care Guest Relations Coordinator Name Role Phone Cole Dorado MD Primary Care Physician [place] [facility] Date(s[place] 06/02/23 - 07/02/[address] [address] Attending Physician: AdmMerry tony Admitting Physician: AdmtrMerry Referring Physician: [id number] Allergies, Adverse Reactions, Alerts Substance Reaction Severity [...] UTI Confirmed Active Urinary Frequency Confirmed Active Procedures Procedure Date Related Diagnosis Body Site Status Implantation of left hypoglo ssal nerve stimulator (Inspire) 06/11/21 Completed Social History Social History Type Response Smoking Status Never smoker; Tobacc o user in household: No entered on: 01/28/16 Sex Patient Care team information Care Team Personnel Name: Erik Waddell DO Position: [facility] CHIEF ORTHOPTIST MD Member Role: Lifetime CHIEF ORTHOPTIST Physician Address: Address: [address] [place] [address]- Name: Cole Dorado MD Position: [facility] Physician - Primary Care Member Role: PCP Address: Address: [address] [place] [address] Name: Sary Isaac RN Position: [facility] RN Member Role: Primary Care Nurse Name: Martínez DUNBAR, Lalitha Huff Position: [facility] Onco RN Member Role: Primary Care Nurse Care Team Related Persons Name: KINA SHABAZZ Address: home [id number] [place] [address] Name: GUEVARA SHABAZZ Address: home [address] [place] [address]
--- OUTSIDE RECORDS SUMMARY | 2023-12-06 11:14 | XMS_ITS | Continuity of Care Document ---
Author Organization [facility] Address [address] [facility] [place] [address]- Care Team Providers Care Buckle Coverer Name Role Phone Cole Dorado MD Primary Care Physician Encounter 04/17/19 - 04/24/19 [facility] [address] [facility], [address] [place] [address]- [phone] Attending Physician: Rashi Ross MD Admitting Physician: Rashi Ross MD Referring Physician: Rashi Ross MD Allergies, Adverse Reactions, Alerts Substance Reaction [...] 04/15/17 10:01:14 Start Date: 04/15/17 Status: Ordered estradiol 10 mcg vaginal tablet 1 tablet = 10 mcg, Vaginally, Daily at bedtime, # 90 tablet, 3 Refills, Maintenance, 10/20/17 8:37:48 EDT Start Date: 10/20/17 Stop Date: 10/15/18 Status: Ordered Flonase 1 sprays, Nares, Both, Daily, 0 Refills, Maintenance, 11/11/15 10:39:04 EDT Start Date: 11/11/15 Status: Ordered fluconazole 150 mg oral tablet 1 tablet = 150 mg, By Mouth, Once, take on tablet now and one tablet in 48hrs, # 2 tablet, 0 Refills, Soft Stop, 04/03/19 14:35:00 EST, [facility]t, [id number], 153, cm, 04/03/19 14:21:00 EST, Height, 57, kg, 08/31/18 15:38:00 EDT, Dry Weight Start Date: 04/03/19 Status: Ordered gabapentin 300 mg oral capsule [...] as needed Start Date: 08/31/18 Status: Ordered magnesium oxide 400 mg oral tablet 1 tablet = 400 mg, By Mouth, Daily Start Date: 08/31/18 Status: Ordered Multivitamin Tablet [...] EC Capsule Start Date: 01/30/17 Status: Ordered Nor-QD 0.35 mg oral tablet 1 tablet = 0.35 mg, By Mouth, Daily, # 90 tablet, 3 Refills, Maintenance, 07/25/17 9:59:00 EDT, Tablet Start Date: 07/25/17 Stop Date: 07/20/18 Status: Ordered norethindrone 0.35 mg oral tablet 1 tablet = 0.35 mg, By Mouth, Daily, # 90 tablet, 0 Refills, Maintenance, 01/17/19 11:26:36 EDT, Tablet Start Date: 01/17/19 Stop Date: 02/14/19 Status: Ordered riboflavin 100 mg oral tablet 1 tablet = 100 mg, By Mouth, Daily, # 90 tablet, 1 Refills, Maintenance, 11/11/15 11:15:42 Start Date: 11/11/15 Stop Date: 05/09/16 Status: Ordered Synthroid 0.025 mg oral tablet 1 tablet = 25 mcg, By Mouth, Daily, 0 Refills, Maintenance, 08/31/18 8:29:08 EDT Start Date: 08/31/18 Status: Ordered traZODone 50 mg oral tablet 50 mg, 1, tablet, By Mouth, Daily at bedtime, PRN, 1-2 tablets prn, # 15 tablet, Refills 0, Maintenance, Other, 01/11/18 20:02:41 EDT Start Date: 01/11/18 Status: Ordered Problem List Condition Effective Dates [...] in female(Confirmed) Active Depression(Confirmed) Active Dyspareunia(Confirmed) Active Endometriosis - diagnosed by laparoscopy 09/24/04(Confirmed) [...] on topical estradiol for vaginal dryness(Confirmed) Active Frequent UTI(Confirmed) Active Urinary Frequency(Confirmed) Active Social History Social History Type Response Smoking Status Never smoker; Tobacc o user in household: No entered on: 01/28/16 Sex
--- OUTSIDE RECORDS SUMMARY | 2023-12-06 11:14 | XMS_ITS | Continuity of Care Document ---
Author Organization [facility] ter Address [address] [place] [address]- Care Team Providers Care Supervising Bailiff Name Role Phone Cole Dorado MD Primary Care Physician Encounter [facility] Date(s): 02/07/23 - 02/07/[address] [address] Discharge Disposition: A-D/C Home Attending Physician: Marcela Greenberg MD Admitting Physician: Marcela Greenberg MD Referring Physician: Marcela Greenberg MD Allergies, Adverse Reactions, Alerts Substance Reaction [...] EC Capsule Start Date: 01/30/17 Status: Ordered Oxycodone 5mg Oral Tablet (PACU ONLY) 5 mg, Tablet, By Mouth, Once, in PACU ONLY, PRN for Pain , Moderate, Routine, 02/07/23 13:34:00 EST Start Date: 02/07/23 Stop Date: 02/07/23 Status: Completed Toradol Inj 0 Refills, Maintenance, 12/22/22 9:12:00 [...] UTI Confirmed Active Urinary Frequency Confirmed Active Vital Signs Most recent to oldest [Reference Range]: 1 2 3 Weight 64.6 kg (02/07/23 10:40 AM) Oxygen Saturation [94-100 %] 97 % (02/07/23 2:45 PM) 93 % *L* (02/07/23 2:30 PM) 99 % (02/07/23 2:15 PM) Pulse Rate [55-90 bpm] 76 bpm (02/07/23 10:40 AM) Blood Pressure [90-138/55-84 mm Hg] 126/94mm Hg (02/07/23 2:45 PM) 128/85mm Hg (02/07/23 2:30 PM) 131/87mm Hg (02/07/23 2:15 PM) Respiratory Rate [16-30 br/min] 11 br/min *L* (02/07/23 2:45 PM) 16 br/min (02/07/23 2:39 PM) 13 br/min *L* (02/07/23 2:30 PM) Temperature [96.8-100.4 DegF] 98.9 DegF (02/07/23 1:24 PM) 98.7 DegF (02/07/23 10:40 AM) Liters per Minute 2 L/min (02/07/23 2:00 PM) 2 L/min (02/07/23 1:30 PM) 4 L/min (02/07/23 1:24 PM) Mode of Delivery (Oxygen) Room air (02/07/23 4:45 PM) Room air (02/07/23 2:45 PM) Room air (02/07/23 2:30 PM) Blood pressure sites Arm, left (02/07/23 10:40 AM) Temperature Route Temporal (02/07/23 1:24 PM) Temporal (02/07/23 10:40 AM) Dry Weight 64.6 kg (02/07/23 10:40 AM) Weight Obtained Via Standing scale (02/07/23 10:40 AM) Dry Weight Obtained Via Standing scale (02/07/23 10:40 AM) Social History Social History Type Response Smoking Status Never smoker; Tobacc o user in household: No entered on: 01/28/16 Sex Note * Cori Post RN: PERFORM Event Display: Patient Education/Instruction Authored Date: [id number] Surgery Adult Discharge Instructions [address] [address] Name: REENA KAM : 1970?? Visit: 02/07/2023 10:11?? Current Date: 02/07/2023 15:22 ?? Account: [id number]?? Surgery Discharge Instructions We would like to thank you for allowing us to assist you with your healthcare needs. The following includes patient education materials and information regarding your injury/illness. Our entire staffstrives to provide an excellent experience for our patients and their families. PLEASE ENSURE YOU FOLLOW-UP PER THE INSTRUCTIONS BELOW! ?? YOUR OPINION IS IMPORTANT TO US! Please complete the survey you may receive by mail or email. Your feedback will be used to make improvements to the healthcare experiences of our patients and their families. Surveys are administered by [employer] ?? If further treatment with your primary care physician or another doctor is recommended, it is important for you to keep the appointment. Call your primary care physician or return to the Emergency Department immediately if your condition worsens, fails to improve, or new symptoms develop. If you need to find a doctor, you can call [facility] That [facility] for a referral at [phone] or toll free at [phone]) or log in to [email or web address].. ?? [facility], in keeping with [facility] guidance, no longer requires face masks for staff, patientsor visitors in most situations. Similiar to time spent indoors at other locations, there is the chance that you were exposed to repiratory viruses during your time with us (such as flu or COVID-19). If you develop symptoms concerning for a viral respiratory infection, please seek testing (and treatment if indicated) from your medical provider or home test kit. ?? You can view and manage your care through the patient portal or by using a health care chelsey of your choosing. [employer] is a website that allows you to securely view your medical information including your hospital discharge summary, office visit summaries, medications and follow-up visits. You can also request appointments, renew medications, and request access to your medical information using a health care chelsey of your choosing, or just ask a question. You are entitled to know the individuals who participated in your treatment. This information is available within your medical record and will be provided upon your request. You can enroll at [email or web address] or register d uring your next office visit. You have been discharged from [facility], Patient Care Unit: [facility]??. If you have any questions regarding these instructions after you leave, please call us and we will be happy to assist you. [facility] Your Care Team Attending Physician Marcela Greenberg MD?? Discharging Providers Skylar Lou DO Reason for Admission MIXED URINARY INCONTINENCE TRANSVAG TAPE DS CS Primary Care Provider Estrada FLORES, Cole Garcia? Advance Directive Health Care Proxy on File No What to do next Instructions From Your Doctor ?? Orders? 02/07/23 13:22:00 EST?? Instructions from your Care Team You had Oxycodone 5mg at 1:40pm in recovery.?? Scheduled Follow-Up Appointments Tuesday 9:00 AM EST ?? With: Yelitza JOHNSTON, Jaja Zarate Where: [facility] [address] [place] [address]- Status: Pending Tuesday 11:40 AM EST ?? With: Marcela Greenberg MD Where: [facility] [address] [address]- Status: Pending Tuesday 8:00 AM EST ?? With: Farnaz Tee MD Where: [facility] [address] [place] [address]- Status: Pending You Need to Schedule the Following Appointments Follow Up with??Marcela Greenberg MD Why: Call for questions/concerns and follow up appointment. Where: [address] [place] [address]- Discharge Medications REENA KAM :1970 Visit Date:02/07/2023 Medications: Please continue your medications until treatment is completed or stopped by your provider. You may resume your daily prescription medications. Discuss any questions related to medications with your provider. What How Much When Instructions Next Dose Unchanged Acetaminophen/ Butalbital/ Caffeine (acetaminophen/ butalbital/ caffeine 325 mg-50 mg-40 mg oral tablet) 1 tab(s) Oral Every 4 hours as needed for Headache Unchanged Biotin Oral Daily Unchanged Cyclobenzaprine Oral Unchanged Dihydroergotamine (Trudhesa) 1.45 Milligram Once Unchanged Duloxetine (Cymbalta 60 mg oral enteric coated capsule) 2 capsule Oral Daily in the morning Unchanged eptinezumab (Vyepti) 100 Milligram Intravenous Infusion Every 3 months Unchanged Esomeprazole (Nexium 20 mg oral enteric coated capsule) 1 capsule Oral Daily at Bedtime Unchanged Estradiol (Estradiol Patch 0.025 mg/ 24 hours twice weekly transdermal film, extended release) See instructions APPLY 1 PATCH TOPICALLY EVERY TUESDAY AND TUESDAY ?? Unchanged Fluticasone Nasal (Flonase) 1 spray(s) Nares, Both Daily in the morning Unchanged Gabapentin (gabapentin 300 mg oral capsule) 2 capsule Oral Daily at Bedtime Unchanged Karla 1 tab(s) Oral Daily in the morning Unchanged Ketorolac (Toradol Inj) Unchanged Levothyroxine (levothyroxine 37.5 mcg (0.0375 mg)/ mL oral solution) 1 Milliliter Oral Daily in the morning Unchanged Lisinopril (lisinopril 5 mg oral tablet) 1 tab(s) Oral Daily at Bedtime Unchanged Lorazepam (LORazepam 0.5 mg oral tablet) 1 tab(s) Oral Twice a day as needed for anxiety. ?? Unchanged mirabegron (mirabegron 50 mg oral tablet, extended release) 1 tab(s) Oral Daily do not crush or chew ?? Unchanged mirabegron (Myrbetriq 25 mg oral tablet, extended release) 1 tab(s) Oral Daily Unchanged Miscellaneous Rx (Calcium) Unchanged Multivitamin (Multivitamin Tablet) 1 tab(s) Oral Daily in the morning Unchanged Multivitamin (Vit B Complex Tablet) Unchanged Propranolol (Inderal LA 160 mg oral capsule, extended release) 1 capsule Oral Daily at Bedtime Duration: 30 Days takes for hypertension. ?? Unchanged Trazodone (traZODone 100 mg oral tablet) 2 tablets Oral Daily at Bedtime Unchanged ubrogepant (Ubrelvy) Oral Once Allergies (NKA means No Known Allergies) Amerge??(Tongue swelling) Compazine??(tongue swells) Demerol??(hallucinates) Imitrex??(tongue swells) Keflex??(ITCHY AND RASH) Maxalt??(tongue swells) Phenergan??(Tongue swelling) Reglan??(Tongue swelling) doxycycline??(c-diff) droperidol??(Tongue swelling) Valuables and Belongings I fully understand and agree that [facility] accepts no responsibility for all my personal property including clothing, toilet articles, radios, jewelry, dentures, hearing aids, rings, money, or any other property that is in my possession or is brought to me after admission. I understand certain valuables may be placed in a hospital safe for a short period of time. I understand that the hospital is not liable for loss or damage due to accident, fire, or other natural occurrence while said property is in the safe. I accept full responsibility for any personal property that I keep with me, and will not hold the hospital responsible in case of loss or disappearance. I acknowledge that i have been encouraged to send valuables and belongings home. ?? Review of Valuable and Belonging List: With patient Date for Pt to Sign Valuables/Belongings: 02/07/23 10:53:00 ?? Valuables & Belongings ?? Clothes Electronic devices Jewelry Monetary Items Personal devices Miscellaneous Medications (Valuables) Valuables at Bedside Jacket, Pants, Shirt, Shoes, Undergarments ? Glasses ? Valuables Sent Home ? Valuables Sent to Security ? Common Emergency Awareness Tips IS IT A STROKE? Act FAST and Check for these signs: FACE Does the face look uneven? ARM Does one arm drift down? SPEECH Does their speech sound strange? TIME Call at any sign of stroke ?? Heart Attack Signs Chest discomfort: Most heart attacks involve discomfort in the center of the chest and lasts more than a few minutes, or goes away and comes back. It can feel like uncomfortable pressure, squeezing, fullness or pain. Discomfort in upper body: Symptoms can include pain or discomfort in one or both arms, back, neck, jaw or stomach. Shortness of breath: With or without discomfort. Other signs: Breaking out in a cold sweat, nausea, or lightheaded. Remember, MINUTES DO MATTER. If you experience any of these heart attack warning signs, call to get immediate medical attention! ?? Smoking can increase your chances of developing chronic health problems and can cause harmful effects to other family members in your house. If you smoke, you are strongly encouraged to quit. Please call [facility] Link at [phone] or [phone] ([phone]) or log in to [email or web address] for referrals to smoking cessation programs. ?? The National Suicide Prevention Hotline is available 18/10 if you or someone you know needs to find a reason to keep living. By calling 2-788-642-Biletu (0444) you'll be connected to a skilled, trained counselor at a crisis center in your area. SURGERY DISCHARGE INSTRUCTIONS SIGNATURE PAGE REENA KAM Location:[facility] Registration Date and Time:02/07/2023 10:11 EST Primary Care Physician: Cole Dorado MD, Attending Physician: Marcela Greenberg MD, I REENA KAM, have received the above patient education materials/instructions and have verbalized understanding. If ambulance or transport services are being used I further acknowledge being given a choice of service. ?? If you need to contact me, please call me at this number: . Patient/Bar And Filler Assembler Name: Reena Kam Patient/Bar And Filler Assembler Signature: Relationship to Patient: Witness Name/Signature: Date:___02/07/23 * Cori Post RN: PERFORM Event Display: Patient Education Leaflets Authored Date: Surgery Voiding Instructions ?? 305 Home Voiding Instructions ?? You should pass urine 6-8 hours after you are discharged from the [facility] Recovery Room. The amount should be about one cup of urine with each voiding. Be aware that you should feel like you are emptying your bladder completely. If you are passing very small amounts of urine frequently it could be over-flow and you may not be emptying your bladder. Things to try to encourage urination: Drink warm coffee or tea ??? unless your physician told you not to. Blow bubble through your straw into a small glass of water. Trickle lukewarm water onto your private area. Walk around as much as able. Let the faucet run slowly. Put your hand in warm water. Try to relax. If you have any concerns about urination, in the above time frame after your discharge, you should call your Doctor. ? * Cori Post RN: PERFORM Event Display: Patient Education Leaflets Authored Date: [id number] Surgery Medical Daystay Surgical Overnight Discharge Instructions ?? 295 Medical Daystay/Surgical Overnight Discharge Instructions ? Since your coordination and judgment may be altered by medication and/or anesthesia, a responsible adult must drive you home from the hospital. ? If you have received medication for pain or sedation while under our care, you should not drive, operate machinery, drink alcohol, or sign any legal documents for 24 hours.?? You should have someone with you at home tonight. ? Remain at home the day of discharge.?? You may be up and about unless otherwise instructed by your physician. ? You may resume your daily prescription medication schedule.?? Any depressant medication should be avoided for 24 hours unless otherwise instructed by your surgeon or anesthesiologist. ? Call your physician for a follow-up appointment.? If you experience unusual or severe pain not relied by your pain medication, excessive bleedingor drainage, persistent nausea and vomiting, excessive swelling or redness, foul odor from incisionsite or fever over 100.6F, you need to call your physician. ? A follow-up phone call by a nurse will be made the day after your procedure.?? If you have stayed with us over night, you will not be receiving a follow-up phone call. ? Nausea and vomiting are a common side effect of prescription pain medication.?? We recommend that pills are not taken on an empty stomach.?? While taking any prescription pain medication you should not drive or drink alcohol. ? Patient Care team information Care Team Personnel Name: Erik Waddell DO Position: [facility] LANDSCAPE SPECIALIST MD Member Role: Lifetime LANDSCAPE SPECIALIST Physician Address: Address: [address] [place] [address] [place] [address]- Name: Cole Dorado MD Position: [facility] Physician - Primary Care Member Role: PCP Address: Address: [address] [place] [address]- Name: Sary Isaac RN Position: [facility] RN Member Role: Primary Care Nurse Name: Martínez DUNBAR, Lalitha Huff Position: [facility] Onco RN Member Role: Primary Care Nurse Care Team Related Persons Name: KINA KAM Address: home [address] [address] Name: GUEVARA KAM Address: home [address] [place] [address]
--- OUTSIDE RECORDS SUMMARY | 2023-12-06 11:14 | XMS_ITS | Continuity of Care Document ---
Author Organization [facility] Armond chano Address [address] [place] [address] [address] [place] [address]- Care Team Providers Care Supervisor Accounting Clerks Name Role Phone Cole Dorado MD Primary Care Physician En[place] [facility] Date(s): 09/08/20 - 10/08/20 [facility] [address] [place] [address] Drive [address] [place] [address]- Allergies, Adverse Reactions, Alerts Substance Reaction Severity [...] 04/15/17 10:01:14 Start Date: 04/15/17 Status: Ordered Diflucan 150 mg oral tablet 1 tablet = 150 mg, By Mouth, Once, Take 1 tablet today. Repeat dose in 48 hours., # 2 tablet, 0 Refills, Soft Stop, 07/29/20 11:38:00 EDT, Tablet, [id number], Partial fill upon patient request if the prescription is for a schedule II... Start Date: 07/29/20 Status: Ordered ferrous sulfate 325 mg oral enteric coated tablet 325 mg, 1, tablet, By Mouth, 3 times a day, start 1 per day and increase as tolerated. Take with Vitamin C to help absorption, # 90 tablet, Refills 3, Tot. Refills 3, Maintenance, 01/16/20 8:32:00 EDT, Route to Pharmacy Electronically, [facility]... Start Date: 01/16/20 Status: Ordered Flonase 1 [...] Refills, Maintenance, 03/01/20 12:07:00 EST, [id number], 153, cm, 01/15/20 16:14:00 EDT, [...] tablet, 3 Refills, Maintenance,01/22/20 14:27:00 EDT, Tablet, [id number], 153, cm, 01/15/20 16:14:00 EDT, Height,57, kg, [...]
--- OUTSIDE RECORDS SUMMARY | 2023-12-06 11:14 | XMS_ITS | Continuity of Care Document ---
Author Organization [facility] ter Address [address] [place] [address]- Care Team Providers Care Residence Supervisor Name Role Phone Cole Dorado MD Primary Care Physician [id number] Date(s): 01/13/21 - 01/13/[address] [address] Discharge Disposition: A-D/C Home Attending Physician: Josh Leslie MD Admitting Physician: Josh Leslie MD Referring Physician: Josh Leslie MD Allergies, Adverse Reactions, Alerts Substance Reaction [...] Refills, Maintenance, 03/01/20 12:07:00 EST, [id number], 153, cm, 01/15/20 16:14:00 EDT, Height, 57, kg, 08/31/18 15:38:00 EDT, Dry Weight Start Date: 03/01/20 Status: Ordered Synthroid 0.025 mg oral tablet 1 tablet = 25 mcg, By Mouth, Daily in AM, 0 Refills, Maintenance, 08/31/18 8:29:08 EDT Start [...] tablet, 3 Refills, Maintenance,01/22/20 14:27:00 EDT, Tablet, [facility] #[id number], 153, cm, 01/15/20 16:14:00 EDT, Height,57, kg, [...] to oldest [Reference Range]: 1 2 3 Height 152.40 cm (01/13/21 1:14 PM) 152.40 cm (01/07/21 1:11 PM) Weight 61.36 kg (01/13/21:14 PM) 61.36 kg (01/07/21 1:11 PM) Oxygen Saturation [94-100 %] 98 % (01/13/21 2:15 PM) 97 % (01/13/21 2:00 PM) 97 % (01/13/21 1:45 PM) Pulse Rate [55-90 bpm] 78 bpm (01/13/21 1:14 PM) Body Mass Index [18.5-24.99] 26.42 *H* (01/13/21 1:14 PM) 26.42 *H* (01/07/21 1:11 PM) Blood Pressure [90-138/55-84 mm Hg] 132/91mm Hg (01/13/21 2:15 PM) 145/88mm Hg *H* (01/13/21 2:00 PM) 134/97mm Hg (01/13/21 1:45 PM) Respiratory Rate [16-30 br/min] 19 br/min (01/13/21 2:15 PM) 18 br/min (01/13/21 2:00 PM) 23 br/min (01/13/21 1:45 PM) Temperature [96.8-100.4 DegF] 97.8 DegF (01/13/21 1:45 PM) 99.3 DegF (01/13/21 1:14 PM) Mode of Delivery (Oxygen) Room air (01/13/21 2:15 PM) Room air (01/13/21 2:00 PM) Room air (01/13/21 1:45 PM) Blood pressure sites Arm, left (01/13/21 1:45 PM) Arm, left (01/13/21 1:14 PM) Temperature Route Temporal (01/13/21 1:45 PM) Temporal (01/13/21 1:14 PM) Dry Weight 61.36 kg (01/07/21 1:11 PM) Weight Obtained Via Patient/family state d (01/07/21 1:11 PM) Dry Weight Obtained Via Patient/family s tated (01/07/21 1:11 PM) Social History Social History Type Response Smoking Status Never smoker; Tobacc o user in household: No entered on: 01/28/16 Sex
--- OUTSIDE RECORDS SUMMARY | 2023-12-06 11:14 | XMS_ITS | Continuity of Care Document ---
Author Organization [facility] Armond chano Address [address] [place] [address] [address] [place] [address]- Care Team Providers Care Car Wrecker Name Role Phone Cole Dorado MD Primary Care Physician [place] [facility] [place]/21[place]21 - 07/19/21 [facility] [address] [place], [place] [address] Attending Physician: Artemio JOHNSTON, Mely Markham Referring Physician: Cole Dorado MD Allergies, Adverse Reactions, Alerts Substance Reaction Severity Status doxycycline c-diff Active Phenergan Tongue swelling Active droperidol Tongue swelling Active Amerge Tongue swelling Active Maxalt tongue swells Active Keflex ITCHY AND RASH Active Demerol hallucinates Active Imitrex tongue swells Active Compazine tongue swells Active Reglan Tongue [...] lymph node staging pNX. Margins negative.(Confirmed) Active Obstructive sleep apnea(Confirmed) Active Other Pain Disorders Related to Psychological Factors(Confirmed) Active Overweight(Confirmed) Active Perimenopausal symptoms. On Nor-QD, cymbalta, and gabapentin. Also on topical estradiol for vaginal dryness(Confirmed) Active Primary insomnia(Confirmed) Active Frequent UTI(Confirmed) Active Urinary Frequency(Confirmed) Active Social History Social History Type Response Smoking Status Never smoker; Tobacc o user in household: No entered on: 01/28/16 Sex
--- OUTSIDE RECORDS SUMMARY | 2023-12-06 11:14 | XMS_ITS | Continuity of Care Document ---
Author Organization [facility] Armond chano Address [address] [place] [address] [address] [place] [address]- Care Team Providers Care Wiper Blender Name Role Phone Cole Dorado MD Primary Care Physician Encounter [facility] Date(s): 12/26/20 - 01/25/21 [facility] [address] [place], [place] [address] Allergies, Adverse Reactions, Alerts Substance Reaction Severity [...] Refills, Maintenance, 03/01/20 12:07:00 EST, [id number], 153, cm, 01/15/20 16:14:00 EDT, [...] tablet, 3 Refills, Maintenance,01/22/20 14:27:00 EDT, Tablet, [id number], 153, cm, 01/15/20 16:14:00 EDT, Height,57, kg, [...]
--- OUTSIDE RECORDS SUMMARY | 2023-12-06 11:14 | XMS_ITS | Continuity of Care Document ---
Author Organization [facility] Address [address] [place] [address]- Care Team Providers Care Repairer Evaporator Name Role Phone Cole Dorado MD Primary Care Physician [place] [facility] [place] [facility]05[facility]23 [facility] [address] [place], [place] [address] Allergies, Adverse Reactions, Alerts Substance Reaction Severity Status doxycycline c-diff Active Amerge Tongue swelling Active Maxalt tongue swells Active Phenergan Tongue swelling Active droperidol Tongue swelling Active Keflex ITCHY AND RASH Active Demerol [...] day, as needed for anxiety. Start Date: 6/6/19 Status: Ordered mirabegron 50 mg oral tablet, [...] (UTIs) Confirmed Active Urinary frequency Confirmed Active Social History Social History Type Response Smoking Status Never smoker; Tobacc o user in household: No entered on: 01/28/16 Sex Patient Care team information Care Team Personnel Name: Erik Waddell DO Position: [facility] SHAKER PLATE OPERATOR Member Role: Lifetime SHAKER PLATE OPERATOR Physician Address: Address: [address] [place] [address]- Name: Cole Dorado MD Position: [facility] Physician - Primary Care Member Role: PCP Address: Address: [address] [place] [address]- [place] Name: Sary Isaac RN Position: S RN Member Role: Primary Care Nurse Name: Lalitha Soliz RN Position: S Onco RN Member Role: Primary Care Nurse Care Team Related Persons Name: KINA SHABAZZ Address: home [address] [address] Name: GUEVARA SHABAZZ Address: home [address] [place] [address]
--- OUTSIDE RECORDS SUMMARY | 2023-12-06 11:14 | XMS_ITS | Continuity of Care Document ---
Author Organization [facility] Address [address] [facility], 4t [place] [address]- Care Team Providers Care Collar Fuser Name Role Phone Cole Dorado MD Primary Care Physician [id number] Date(s): 03/09/23 - [facility] [address] [facility], 4th [place] [address]- Attending Physician: Marcela Greenberg MD Admitting Physician: [...] Team Personnel Name: Erik Waddell DO Position: [facility] SILK SCREEN REPAIRER MD Member Role: Lifetime SILK SCREEN REPAIRER Physician Address: Address: [address] [place] [address]- Name: Cole Dorado MD Position: [facility] Physician - Primary Care Member Role: PCP Address: Address: [address] [place] [address]- Name: Sary Isaac RN Position: [facility] RN Member Role: Primary Care Nurse Name: Martínez DUNBAR, Lalitha Huff Position: [facility] Onco RN Member Role: Primary Care Nurse Care Team Related Persons Name: KINA SHABAZZ Address: home [address] [address] Name: GUEVARA SHABAZZ Address: home [address] [place] [address]
--- OUTSIDE RECORDS SUMMARY | 2023-12-06 11:14 | XMS_ITS | Continuity of Care Document ---
Author Organization [facility] Address [address] [facility], 4[address] [place] [address]- Care Team Providers Care Dressing Room Attendant Name Role Phone Cole Dorado MD Primary Care Physician En[facility] Date(s): 12/28/22 - 01/27/23 [facility] [address] [facility], 4th Floor [place], [place] [address] Allergies, Adverse Reactions, Alerts Substance [...] EC Capsule Start Date: 01/30/17 Status: Ordered oxyCODONE 5 mg oral tablet 5 mg, 1, tablet, By Mouth, Every 6 hours, PRN, # 12 tablet, Refills 0, Tot. Refills 0, Acute 01/28/23 11:21:00 EDT, as needed for pain, 01/25/23 11:20:00 EDT, Route to Pharmacy Electronically, [facility] [id number] [facility], Partial fill upon patient request if... Start Date: 01/25/23 Stop Date: 01/28/23 Status: Ordered Toradol Inj 0 Refills, Maintenance, [...] Name: Erik Waddell DO Position: [facility] FRONT DESK RECEPTIONIST MD Member Role: Lifetime FRONT DESK RECEPTIONIST Physician Address: Address: [address] [place] [address] [facility] [place] [address]- Name: Cole Dorado MD Position: [facility] Physician - Primary Care Member Role: PCP Address: Address: [address] [place] [address]- Name: Sary Isaac RN Position: [facility] RN Member Role: Primary Care Nurse Name: Martínez DUNBAR, Lalitha Huff Position: [facility] Onco RN Member Role: Primary Care Nurse Care Team Related Persons Name: KINA SHABAZZ Address: home [id number] [place] [address] Name: GUEVARA SHABAZZ Address: home [address] [place] [address]
--- OUTSIDE RECORDS SUMMARY | 2023-12-06 11:14 | XMS_ITS | Continuity of Care Document ---
Author Organization [facility] Armond chano Address [address] [place] [address] [address] [place] [address]- Care Team Providers Care Web Applications Programmer Name Role Phone Cole Dorado MD Primary Care Physician Encounter [facility] Date(s): 12/05/20 - 01/04/21 [facility] [address] [place] [address]- Allergies, Adverse Reactions, Alerts Substance Reaction Severity [...] Refills, Soft Stop, 07/29/20 11:38:00 EDT, Tablet, [id number], Partial fill upon patient request if the [...] 01/16/20 8:32:00 EDT, Route to Pharmacy Electronically, [facility] Start Date: 01/16/20 Status: Ordered Flonase 1 [...] Refills, Maintenance, 03/01/20 12:07:00 EST, [id number], 153, cm, 01/15/20 16:14:00 EDT, [...] tablet, 3 Refills, Maintenance,01/22/20 14:27:00 EDT, Tablet, [facility][id number], 153, cm, 01/15/20 16:14:00 EDT, Height,57, kg, [...]
--- OUTSIDE RECORDS SUMMARY | 2023-12-06 11:14 | XMS_ITS | Continuity of Care Document ---
Author Organization [facility] Last [facility] Address [address] [facility], 4t [place] [address]- Care Team Providers Care Protein Chemist Name Role Phone Cole Dorado MD Primary Care Physician En[facility] Date(s): 08/17/23 - 09/16/23 [facility] Cesar [facility] [employer] [facility] [address] [facility], 4th Floor [place], [place] [address] Attending Physician: AdmMerry tony Admitting Physician: AdmtrMerry Referring Physician: Admtr, Dangelo8 Allergies, Adverse Reactions, Alerts Substance Reaction Severity [...] DO Position: [facility] DISTRICT FIRE CHIEF MD Member Role: Lifetime DISTRICT FIRE CHIEF Physician Address: Address: [address] [place] [address]- Name: Cole Dorado MD Position: [facility] Physician - Primary Care Member Role: PCP Address: Address: [address] [place] [address]- Name: Sary Isaac RN Position: [facility] RN Member Role: Primary Care Nurse Name: Martínez DUNBAR, Lalitha Huff Position: [facility] Onco RN Member Role: Primary Care Nurse Care Team Related Persons Name: KINA SHABAZZ Address: home [id number] [place] [address] Name: GUEVARA SHABAZZ Address: home [address] [place] [address]
--- OUTSIDE RECORDS SUMMARY | 2023-12-06 11:14 | XMS_ITS | Continuity of Care Document ---
Author Organization [facility] Address [address] [place] [address]- Care Team Providers Care Traffic Administrator Name Role Phone Cole Dorado MD Primary Care Physician Encounter [facility] Date(s): 11/12/19 - 01/12/20 [facility] [address] [place] [address]- [facility] Attending Physician: Farnaz Tee MD Admitting Physician: Farnaz Tee MD Allergies, Adverse Reactions, Alerts Substance Reaction [...] 04/15/17 10:01:14 Start Date: 04/15/17 Status: Ordered Flonase 1 [...] Daily, # 90 tablet, 3 Refills, Maintenance, 06/21/19 10:50:00 EDT, Tablet, [facility], 153, cm, 04/03/19 14:21:00 EST, Height, 57, kg, 08/31/18 15:38:00 EDT, Dry Weight Start Date: 06/21/19 Status: Ordered Synthroid 0.025 mg oral tablet [...]
--- OUTSIDE RECORDS SUMMARY | 2023-12-06 11:14 | XMS_ITS | Continuity of Care Document ---
Author Organization [facility] Address [address] [facility], 4t [place] [address]- Care Team Providers Care Fishing Game Warden Name Role Phone Cole Dorado MD Primary Care Physician En[facility] Date(s): 04/03/19 - 04/13/19 [facility] Cesar [employer] [facility] [address] [facility], 4th [place] [address]- Attending Physician: Admtr, Ar8 Allergies, Adverse Reactions, [...] 0 Refills, Maintenance, 04/15/17 10:01:14 Start Date: 1/19/18 Status: Ordered estradiol 10 mcg vaginal tablet [...] Soft Stop, 04/03/19 14:35:00 EST, [id number], 153, cm, 04/03/19 14:21:00 EST, [...] Refills, Maintenance, 01/16/14 16:24:24, Tablet Start Date: 10/22/14 Status: Ordered Myrbetriq 25 mg oral tablet, [...]
--- OUTSIDE RECORDS SUMMARY | 2023-12-06 11:14 | XMS_ITS | Continuity of Care Document ---
Author Organization [facility] Address [address] [facility], 4t [place] [address]- Care Team Providers Care Climatology Professor Name Role Phone Cole Doraod MD Primary Care Physician En[facility] Date(s): 11/03/23 - 11/10/23 [facility] [address] [facility], 4th Floor [place], [place] [address] Attending Physician: Rashi Ross MD Allergies, Adverse Reactions, [...] 04/15/17 Status: Ordered estradiol 0.05 mg/24 hours weekly transdermal film, extended release 1 patch, Topically, Every Tuesday and , # 24 patch, 3 Refills, Maintenance, 11/07/23 16:43:00 EDT, Patch, [facility], Partial fill upon patient request if the prescription is for a schedule II opioid drug., 152, cm, 11/03/23... Start Date: 11/07/23 Status: Ordered Flonase 1 sprays, Nares, Both, [...] (UTIs) Confirmed Active Urinary frequency Confirmed Active Procedures Procedure Date Related Diagnosis Body Site Status Advantage midurethral sling, cystoscopy 02/07/23 Completed Colonoscopy - many times Completed Vital Signs Most recent to oldest [Reference Range]: 1 Height 152 cm (11/03/23 4:51 PM) Weight 67.72 kg (11/03/23 4:51 PM) Body Mass Index [18.5-24.99 kg/m2] 29.31 kg/m2 *H* (11/03/23 4:51 PM) Blood Pressure [90-138/55-84 mm Hg] 130/ 82mm Hg (11/03/23 4:51 PM) Blood pressure sites Arm, left (11/03/23 4:51 PM) Weight Obtained Via Standing scale (11/03/23 4:51 PM) Social History Social History Type Response Smoking Status Never smoker; Tobacc o user in household: No entered on: 01/28/16 Sex Patient Care team information Care Team Personnel Name: Erik Waddell DO Position: [facility] WORSHIP LEADER MD Member Role: Lifetime WORSHIP LEADER Physician Address: Address: [address] [place] [address]- Name: Cole Dorado MD Position: [facility] Physician - Primary Care Member Role: PCP Address: Address: [address] [place] [address] Name: Sary Isaac RN Position: [facility] RN Member Role: Primary Care Nurse Name: Martínez DUNBAR, Lalitha Huff Position: [facility] Onco RN Member Role: Primary Care Nurse Care Team Related Persons Name: KINA SHABAZZ Address: home [address] [facility] [address] [place] [address] Name: GUEVARA SHABAZZ Address: home [address] [place] [address]
--- OUTSIDE RECORDS SUMMARY | 2023-12-06 11:14 | XMS_ITS | Continuity of Care Document ---
Author Organization [facility] Last [facility] Address [address] [facility], 4[address] [place] [address]- Care Team Providers Care Shrinker Name Role Phone Cole Dorado MD Primary Care Physician En[facility] Date(s): 01/12/21 - 02/11/21 [facility] CormierYoink Gamess [facility] [address] [facility], 4th Floor [place], [place] [address] Allergies, Adverse Reactions, Alerts Substance Reaction Severity [...] Mouth, Daily at bedtime, Refills 0, Maintenance, 11/25/16 14:25:32 EST Start Date: 02/20/16 Status: Ordered [...] Refills, Maintenance, 03/01/20 12:07:00 EST, [id number], 153, cm, 01/15/20 16:14:00 EDT, [...] tablet, 3 Refills, Maintenance,01/22/20 14:27:00 EDT, Tablet, [facility] #[id number], 153, cm, 01/15/20 16:14:00 EDT, Height,57, kg, [...]
--- OUTSIDE RECORDS SUMMARY | 2023-12-06 11:14 | XMS_ITS | Continuity of Care Document ---
Author Organization [facility] Ni [facility]Visual[facility] Address [address] [facility], 4t [place] [address]- Care Team Providers Care Metal Moulder'S Assistant Name Role Phone Cole Dorado MD Primary Care Physician Encounter [facility] Date(s): 05/12/20 - 05/19/20 [facility] [address] [facility], 4th [place], [place] [address] Attending Physician: Erick Mares MD Referring Physician: Liane Cummings MD Allergies, Adverse Reactions, Alerts Substance Reaction [...] 01/16/20 8:32:00 EDT, Route to Pharmacy Electronically, [facility] Start Date: 01/16/20 Status: Ordered Flonase [...] Refills, Maintenance, 03/01/20 12:07:00 EST, [id number], 153, cm, 01/15/20 16:14:00 EDT, [...] tablet, 3 Refills, Maintenance,01/22/20 14:27:00 EDT, Tablet, [id number], 153, cm, 01/15/20 16:14:00 EDT, Height,57, kg, [...] recent to oldest [Reference Range]: 1 Height 153 cm (05/12/20 8:49 AM) Weight 61.81 kg (05/12/20 8:49 AM) Body Mass Index [18.5-24.99] 26.4 *H* (05/12/20 8:49 AM) Blood Pressure [90-138/55-84 mm Hg] 134/ 99mm Hg (05/12/20 8:49 AM) Blood pressure sites Arm, left (05/12/20 8:49 AM) Weight Obtained Via Standing scale (05/12/20 8:49 AM) Social History Social History Type Response Smoking Status Never smoker; Tobacc o user in household: No entered on: 01/28/16 Sex
--- OUTSIDE RECORDS SUMMARY | 2023-12-06 11:14 | XMS_ITS | Continuity of Care Document ---
Author Organization [facility] Address [address] [place] [address]- Care Team Providers Care Prenatal Genetic Counselor Name Role Phone Estrada FLORES, Cole Garcia Primary Care Physician Encounter [facility] Date(s): 12/13/19 - 01/12/20 [facility] [address] [place] [address] [facility] Attending Physician: Merry Khan Admitting Physician: Merry Khan Referring Physician: AdmtrMerry Allergies, Adverse Reactions, Alerts Substance Reaction Severity [...] GERD (gastroesophageal reflu x disease)(Confirmed) Active 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
--- OUTSIDE RECORDS SUMMARY | 2023-12-06 11:15 | XMS_ITS | Continuity of Care Document ---
Author Organization [facility] Address [address] [place] [address]- Care Team Providers Care Loom Fixer Name Role Phone Cole Dorado MD Primary Care Physician Encounter [facility] Date(s): 08/10/21 - 09/09/21 [facility] [address] [address]- Allergies, Adverse Reactions, Alerts Substance Reaction Severity [...] hypertension(Confirmed) Active Last pap smear 08/16/13 negat aclides with negative HPV. Status post total hysterectomy [...]
--- OUTSIDE RECORDS SUMMARY | 2023-12-06 11:15 | XMS_ITS | Continuity of Care Document ---
Author Organization [facility] Last n's [facility] [employer] [facility] Address [address] [facility], 4t [place] [address]- Care Team Providers Care Fuse Spooler Name Role Phone Cole Dorado MD Primary Care Physician Encounter [facility] Date(s): 06/23/23 - 07/23/23 [facility] CormierGraphene Frontierss [employer] [address] [facility], 4th [place], [place] [address] Allergies, Adverse Reactions, Alerts Substance Reaction [...] tablet, Refills 0, Tot. Refills 0, Acute 07/26/23 15:55:00 EDT, as needed for pain, 07/19/23 15:55:00 EDT, Route to Pharmacy Electronically, [facility] #[id number], Partial fill upon patient request if t... Start Date: 07/19/23 Stop Date: 07/26/23 Status: Ordered Toradol Inj 0 Refills, Maintenance, [...] Team Personnel Name: Erik Waddell DO Position: [facility] REHABILITATION SERVICES MANAGER MD Member Role: Lifetime REHABILITATION SERVICES MANAGER Physician Address: Address: [address] [place] [address]- Name: Cole Dorado MD Position: [facility] Physician - Primary Care Member Role: PCP Address: Address: [address] [place] [address] Name: Sary Isaac RN Position: [facility] RN Member Role: Primary Care Nurse Name: Lalitha Soliz RN Position: [facility] Onco RN Member Role: Primary Care Nurse Care Team Related Persons Name: KINA SHABAZZ Address: home [address] [address] Name: GUEVARA SHABAZZ Address: home [address] [place] [address]
--- OUTSIDE RECORDS SUMMARY | 2023-12-06 11:15 | XMS_ITS | Continuity of Care Document ---
Author Organization [facility] Address [address] [facility], 4t [place] [address]- Care Team Providers Care Ring Packer Name Role Phone Cole Dorado MD Primary Care Physician En[facility] Date(s): 09/10/21 - 10/10/21 [facility] [employer] [facility] [facility] [address] [facility], 4th [address] [place], [place] [address] Allergies, Adverse Reactions, Alerts Substance Reaction Severity [...]
--- OUTSIDE RECORDS SUMMARY | 2023-12-06 11:15 | XMS_ITS | Continuity of Care Document ---
Author Organization [facility] Address [address] [place] [address]- Care Team Providers Care Extension Service Specialist Name Role Phone Cole Dorado MD Primary Care Physician Encounter [facility] [id number] Date(s): 06/11/21 - 06/11/[address] [address] Discharge Disposition: A-D/C Home Attending Physician: Josh Leslie MD Admitting Physician: Josh Leslie MD Referring Physician: Josh Leslie MD Allergies, Adverse Reactions, Alerts Substance Reaction Severity Status doxycycline c-diff Active droperidol Tongue swelling Active Phenergan Tongue swelling Active Amerge Tongue swelling Active Maxalt tongue swells Active Keflex ITCHY AND RASH Active Demerol hallucinates Active Imitrex tongue swells Active Compazine tongue swells Active Reglan Tongue swelling Active Immunizations Given and Recorded Vaccine Date Status Refusal Reason pneumococcal 23-valent vaccine 12/04/14 Given Influenza Inactive (IM) (oldterm) 02/21/07 Given Medications acetaminophen 500 mg oral tablet 2 tablet = 1,000 mg, By Mouth, 3 times a day, PRN as needed for pain, for 7 days, # 50 tablet, 0 Refills, Acute 06/18/21 11:18:00 EDT, 06/11/21 11:18:00 EDT, Tablet, [facility] #[id number], Partial fill upon patient request if the prescription is... Start Date: 06/11/21 Stop Date: 06/18/21 Status: Ordered acetaminophen/butalbital/caffeine 325 mg-50 mg-40 mg oral tablet 1 tablet, By Mouth, Every 4 hours, PRN Headache Start Date: 08/31/18 Status: Ordered clindamycin 300 mg oral capsule 1 capsule = 300 mg, By Mouth, Every 8 hours, for 3 days, # 9 capsule, 0 Refills, Acute 06/14/21 11:20:00 EDT, 06/11/21 11:20:00 EDT, Capsule, [facility] #[id number], Partial fill upon patient request if the prescription is for a schedule II opioi... Start Date: 06/11/21 Stop Date: 06/14/21 Status: Ordered Cymbalta 60 mg oral enteric [...] 14:09:11 EST Start Date: 04/24/15 Status: Ordered ibuprofen 600 mg oral tablet 600 mg, 1, tablet, By Mouth, 3 times a day, for 5 days, do not start until 48h postop., # 15 tablet, Refills 0, Tot. Refills 0, Acute 06/16/21 11:18:00 EDT, 06/11/21 11:18:00 EDT, Route to Pharmacy Electronically, [facility] #[id number], Partial... Start Date: 06/11/21 Stop Date: 06/16/21 Status: Ordered Inderal LA 160 mg oral [...] Dry Weight Start Date: 05/14/21 Status: Ordered oxyCODONE 5 mg oral tablet 5 mg, 1, tablet, By Mouth, Every 6 hours, PRN, for 5 days, # 18 tablet, Refills 0, Tot. Refills 0, Acute 06/16/21 11:19:00 EDT, for pain, 06/11/21 11:19:00 EDT, [id number], Partial fill upon patient r... Start Date: 06/11/21 Stop Date: 06/16/21 Status: Ordered OxyCODONE IR Tablet 5 mg, Tablet, By Mouth, Every 4 hours, in PACU ONLY, if patient can tolerate PO, PRN for Pain , Mild, Routine, 06/11/21 10:33:00 EDT Start Date: 06/11/21 Stop Date: 06/11/21 Status: Discontinued traZODone 100 mg oral tablet 2 tablets, [...] Active Frequent UTI(Confirmed) Active Urinary Frequency(Confirmed) Active Results Radiology Reports * Exam Date Time Procedure Performing Provider Status 06/11/21 1:13 PM Neck Soft Tissue Lety Santamaria; Moshe (Verified) Notes: (Neck Soft Tissue) Reason For Exam: s/p nerve stimulator hypoglossal.;Postop RESULT: Neck Soft Tissue Soft tissues of the neck 2 views dated June 11, 2021. Comparison films are from May 07, 2021. HISTORY: Hyper glossal Stimulator placement. FINDINGS: Prevertebral soft tissues are within normal limits. Remaining in place arch to occipital nerve stimulators on the right. There is a new stimulator pack on the left. A wire extends up the level of the inferior aspect of the lung just to the left of midline. This would be consistent with a hypoglossal nerve stimulator. Interbody fusion is noted at C6-7. Alignment is anatomic. IMPRESSION: Interval placement of a hypoglossal nerve stimulator. Otherwise, no significant change. Thank you for allowing me to participate in the care of this patient. WSN: [id number] Ordering Physician: Emery Crouch Dictated By: Madhav Ford MD Dictated Date/Time: 06/11/21 1:51 pm Reviewed By: Madhav Ford MD Signed By: Madhav Ford MD Signed Date/Time: 06/11/21 1:51 pm Transcribed By: J LUIS Transcribed Date/Time: 06/11/21 1:47 pm Vital Signs Most recent to oldest [Reference Range]: 1 2 3 Height 152.40 cm (06/11/21 8:30 AM) 152.40 cm (06/08/21 9:47 AM) Weight 65.9 kg (06/11/21 8:30 AM) 64.09 kg (06/08/21 9:47 AM) Oxygen Saturation [94-100 %] 97 % (06/11/21 12:45 PM) 94 % (06/11/21 12:15 PM) 95 % (06/11/21 12:00 PM) Pulse Rate [55-90 bpm] 82 bpm (06/11/21 8:30 AM) Body Mass Index [18.5-24.99] 28.37 *H* (06/11/21 8:30 AM) 27.59 *H* (06/08/21 9:47 AM) Blood Pressure [90-138/55-84 mm Hg] 123/80mm Hg (06/11/21 12:15 PM) 108/79mm Hg (06/11/21 12:00 PM) 117/78mm Hg (06/11/21 11:45 AM) Respiratory Rate [16-30 br/min] 17 br/min (06/11/21 12:20 PM) 15 br/min *L* (06/11/21 12:15 PM) 12 br/min *L* (06/11/21 12:00 PM) Temperature [96.8-100.4 DegF] 97.8 DegF (06/11/21 12:15 PM) 97.9 DegF (06/11/21 11:20 AM) 98.6 DegF (06/11/21 8:30 AM) Liters per Minute 0 L/min (06/11/21 12:15 PM) 0 L/min (06/11/21 12:00 PM) 0 L/min (06/11/21 11:45 AM) Mode of Delivery (Oxygen) Room air (06/11/21 12:45 PM) Room air (06/11/21 12:15 PM) Room air (06/11/21 12:00 PM) Blood pressure sites Arm, left (06/11/21 11:45 AM) Arm, left (06/11/21 11:20 AM) Arm, right (06/11/21 8:30 AM) Temperature Route Temporal (06/11/21 12:15 PM) Temporal (06/11/21 11:20 AM) Temporal (06/11/21 8:30 AM) Dry Weight 64.09 kg (06/08/21 9:47 AM) Weight Obtained Via Standing scale (06/11/21 8:30 AM) Patient/family stated (06/08/21 9:47 AM) Dry Weight Obtained Via Patient/family s tated (06/08/21 9:47 AM) Social History Social History Type Response Smoking Status Never smoker; Tobacc o user in household: No entered on: 01/28/16 Sex
--- OUTSIDE RECORDS SUMMARY | 2023-12-06 11:15 | XMS_ITS | Continuity of Care Document ---
Author Organization [facility] Last n's [facility] Address [address] [facility], 4[address] [place] [address]- Care Team Providers Care Vending Stand Supervisor Name Role Phone Cole Dorado MD Primary Care Physician [place] [facility] [place] 10/05/22 - 11/04/22 [facility] Ces[employer]ximus CormierFlag Day Consulting Servicess [facility] [address] [facility], 4th [place], [place] [address] Allergies, Adverse Reactions, Alerts Substance Reaction [...] tablet, Refills 0, Tot. Refills 0, Acute 11/08/22 14:55:00 EDT, as needed for pain, 11/04/22 14:55:00 EDT, Print Requisition, Partial fill upon patient request if the prescription is for a schedule I... Start Date: 11/04/22 Stop Date: 11/08/22 Status: Ordered traZODone 100 mg oral tablet [...] Team Personnel Name: Erik Waddell DO Position: [facility] COYOTE HUNTER MD Member Role: Lifetime COYOTE HUNTER Physician Address: Address: [address] [place] [address] [facility] [place] [address]- Name: Cole Dorado MD Position: [facility] Physician - Primary Care Member Role: PCP Address: Address: [address] [place] [address]- Name: Sary Isaac RN Position: [facility] RN Member Role: Primary Care Nurse Name: Martínez DUNBAR, Lalitha Huff Position: [facility] Onco RN Member Role: Primary Care Nurse Care Team Related Persons Name: KINA SHABAZZ Address: home [address] [place] [address] Name: GUEVARA SHABAZZ Address: home [address] [place] [address]
--- OUTSIDE RECORDS SUMMARY | 2023-12-06 11:15 | XMS_ITS | Continuity of Care Document ---
Author Organization [facility] Address [address] [address], 3r d Floor, [address] [place] [address]- Care Team Providers Care Child Care Center Administrator Name Role Phone Estrada FLORES, Cole Garcia Primary Care Physician En[place] [facility] [place] Date(s): 11/08/19 - 12/08/19 [facility] [address], 3rd Floor, [address] [place] [address]- [facility] Allergies, Adverse Reactions, Alerts Substance Reaction Severity [...]
--- OUTSIDE RECORDS SUMMARY | 2023-12-06 11:15 | XMS_ITS | Continuity of Care Document ---
Author Organization [facility] Address [address] [facility], [address] [place] [address]- Care Team Providers Care Packing Attendant Name Role Phone Estrada FLORES, Cole Garcia Primary Care Physician Encounter 07/27/23 - 08/03/23 [facility] [address], [address] [place] [address]- Attending Physician: Rashi Ross MD Admitting Physician: Rashi Ross MD Referring Physician: Rashi Ross MD Allergies, Adverse Reactions, Alerts Substance Reaction Severity Status doxycycline c-diff Active Phenergan Tongue swelling Active Compazine tongue swells Active droperidol Tongue swelling Active Amerge Tongue swelling Active Maxalt tongue swells Active Keflex ITCHY AND RASH Active Demerol hallucinates Active Imitrex tongue swells Active Reglan Tongue swelling Active [...] Exam Date Time Procedure Performing Provider Status 07/27/23 11:49 AM MM Digital Mammo Screening Elliot Spence; Moshe (Verified) Notes: (MM Digital Mammo Screening) Reason For Exam: Z12.31 SCREEN RESULT: MM Digital Mammo Screening PROCEDURE: MM Digital Mammo Screening INDICATION: Screening for breast cancer. No known palpable abnormalities. COMPARISON: Multiple prior studies dating back to 04/17/2019. TECHNIQUE: Full-field digital CC and MLO 3D tomosynthesis images of both breasts were acquired. Computer-aided detection (CAD) was utilized in the interpretation of this study. DENSITY: There are scattered areas of fibroglandular density. FINDINGS: No suspicious masses, suspicious microcalcifications, or areas of architectural distortion are seen in either breast to suggest malignancy. IMPRESSION: No mammographic evidence of malignancy. RECOMMENDATION: Annual mammographic screening BI-RADS: 1 (Negative) Lay letter mailed to patient WSN: [id number] Ordering Physician: Rashi Ross Dictated By: Hermilo Vázquez MD Dictated Date/Time: 07/27/23 3:16 pm Reviewed By: Hermilo Vázquez MD Signed By: Hermilo Vázquez MD Signed Date/Time: 07/27/23 3:16 pm Transcribed By: J LUIS Acoustical Material Worker Date/Time: 07/27/23 3:07 pm Birads: Social History Social History Type Response Smoking Status Never smoker; Tobacc o user in household: No entered on: 01/28/16 Sex Patient Care team information Care Team Personnel Name: Erik Waddell DO Position: [facility] GETTER WELDER MD Member Role: Lifetime GETTER WELDER Physician Address: Address: [address] [place] [address]- Name: Cole Dorado MD Position: [facility] Physician - Primary Care Member Role: PCP Address: Address: [address] [place] [address]- Name: Sary Isaac RN Position: [facility] RN Member Role: Primary Care Nurse Name: Lalitha Soliz RN Position: [facility] Onco RN Member Role: Primary Care Nurse Care Team Related Persons Name: KINA SHABAZZ Address: home [address] [address] Name: GUEVARA SHABAZZ Address: home [address] [place] [address]
--- OUTSIDE RECORDS SUMMARY | 2023-12-06 11:15 | XMS_ITS | Continuity of Care Document ---
Author Organization [facility] Address [address] [facility], 4t [place] [address]- Care Team Providers Care Vmware Systems Administrator Name Role Phone Cole Dorado MD Primary Care Physician [place] [facility] [place]): 06/21/19 - 07/01/19 [facility] [place] [employer] [facility] [address] [facility], 4th [place] [address]- Attending Physician: Admtr, Ar8 Allergies, Adverse Reactions, Alerts Substance Reaction Severity Status doxycycline c-diff Active droperidol Tongue swelling Active Keflex ITCHY AND RASH Active Imitrex tongue swells Active Phenergan Tongue swelling Active Compazine tongue swells Active Demerol hallucinates Active Reglan Tongue swelling Active Amerge Tongue swelling Active Maxalt tongue swells Active Immunizations Given and Recorded Vaccine Date [...] as needed Start Date: 08/31/18 Status: Ordered Multivitamin Tablet [...]
--- OUTSIDE RECORDS SUMMARY | 2023-12-06 11:15 | XMS_ITS | Continuity of Care Document ---
Author Organization [facility] Address [address] [facility], 4t [place] [address]- Care Team Providers Care Skin Piler Name Role Phone Cole Dorado MD Primary Care Physician En[place] [facility] [place] Date(s): 05/05/20 - 06/04/20 [facility] [employer] [address] [facility], 4th [place], [place] [address] Allergies, Adverse Reactions, Alerts Substance Reaction Severity [...] 01/16/20 8:32:00 EDT, Route to Pharmacy Electronically, [facility] Start Date: 01/16/20 Status: Ordered Flonase [...] Refills, Maintenance, 03/01/20 12:07:00 EST, [id number], 153, cm, 01/15/20 16:14:00 EDT, [...] tablet, 3 Refills, Maintenance,01/22/20 14:27:00 EDT, Tablet, [id number], 153, cm, 01/15/20 16:14:00 EDT, Height,57, kg, [...]
--- OUTSIDE RECORDS SUMMARY | 2023-12-06 11:15 | XMS_ITS | Continuity of Care Document ---
Author Organization [facility] Address [address] [facility], 4t [place] [address]- Care Team Providers Care Supplier Quality Name Role Phone Cole Dorado MD Primary Care Physician [id number] 05[facility]08[facility]21 - 06/07/21 [facility] [place] [employer] [facility] [address] [facility], 4th Floor [place], [place] [address] Allergies, Adverse Reactions, Alerts Substance Reaction [...] Influenza Inactive (IM) (oldterm) 02/21/07 Given Medications Abilify 2 mg oral tablet 2 mg, 1, tablet, By Mouth, Daily, Refills 0, Maintenance, 02/12/21 10:05:00 EST, Partial fill upon patient request if the prescription is for a schedule II opioid drug. Start Date: 02/12/21 Status: Ordered acetaminophen/butalbital/caffeine 325 mg-50 mg-40 mg [...] # 70 Gm, 5 Refills... Start Date: 02/09/24 Stop Date: 02/05/27 Status: Ordered metronidazole topical 0.75% gel with [...] Dry Weight Start Date: 05/14/21 Status: Ordered Synthroid 0.025 mg oral tablet [...] Maintenance,01/22/20 14:27:00 EDT, Tablet, [id number], 153, cm, 01/15/20 16:14:00 EDT, Height,57, kg, [...]
--- OUTSIDE RECORDS SUMMARY | 2023-12-06 11:15 | XMS_ITS | Continuity of Care Document ---
Author Organization [facility] Address [address] [facility], 4t [place] [address]- Care Team Providers Care Material Analyst Name Role Phone Cole Dorado MD Primary Care Physician [place] [facility] [place] 05/12/22 - 06/11/22 [facility] [place] CasaFarehelpers [facility] [address] [facility], 4th Floor [place], [place] [address] Allergies, Adverse Reactions, Alerts Substance Reaction [...] Team Personnel Name: Erik Waddell DO Position: [facility] CHAR FILTER TANK TENDER MD Member Role: Lifetime CHAR FILTER TANK TENDER Physician Address: Address: [address] [place] [address]'s [facility] [place] [address]- Name: Cole Dorado MD Position: [facility] Physician (General Medicine) Member Role: PCP Address: Address: [address] [place] [address]- Name: Sary Isaac RN Position: [facility] RN Member Role: Primary Care Nurse Name: Martínez DUNBAR, Lalitha Huff Position: [facility] Onco RN Member Role: Primary Care Nurse Care Team Related Persons Name: KINA SHABAZZ Address: home [address] [facility] [address] [place] [address] Name: GUEVARA SHABAZZ Address: home [address] [place] [address]
--- OUTSIDE RECORDS SUMMARY | 2023-12-06 11:15 | XMS_ITS | Continuity of Care Document ---
Author Organization [facility] Address [address] [facility], 4t [place] [address]- Care Team Providers Care Specialty Foods Cook Name Role Phone Cole Dorado MD Primary Care Physician [id number] Date(s): 10/09/21 - 11/08/21 [facility] [employer] Cas[employer] [facility] [address] [facility], 4th [place], [place] [address] Allergies, Adverse Reactions, Alerts [...]
--- OUTSIDE RECORDS SUMMARY | 2023-12-06 11:15 | XMS_ITS | Continuity of Care Document ---
Author Organization [facility] Last n's [facility] Address [address] [facility], 4t [place] [address]- Care Team Providers Care Interpretative Dancer Name Role Phone Cole Dorado MD Primary Care Physician Encounter [facility] Date(s): 01/24/23 - 02/23/23 [facility] Caseymaximus CormierSiines [facility] [address] [facility], 4th Floor [place], [place] [address] Allergies, Adverse Reactions, Alerts Substance Reaction Severity Status doxycycline c-diff Active droperidol Tongue swelling Active Reglan Tongue swelling Active Amerge Tongue swelling Active Maxalt tongue swells Active Keflex ITCHY AND RASH Active Demerol hallucinates Active Imitrex tongue swells Active Phenergan Tongue swelling Active Compazine tongue swells Active Immunizations Given and Recorded [...] Team Personnel Name: Erik Waddell DO Position: [facility] REAL ESTATE ATTORNEY MD Member Role: Lifetime REAL ESTATE ATTORNEY Physician Address: Address: [address] [place], [place] [address]s [facility] [employer] [place] [address]- [place] Name: Cole Dorado MD Position: [facility] Physician - Primary Care Member Role: PCP Address: Address: [address] [place] [address]- Name: Sary Isaac RN Position: [facility] RN Member Role: Primary Care Nurse Name: Lalitha Soliz RN Position: [facility] Onco RN Member Role: Primary Care Nurse Care Team Related Persons Name: KINA SHABAZZ Address: home [address] [address] Name: GUEVARA SHABAZZ Address: home [address] [place] [address]
--- OUTSIDE RECORDS SUMMARY | 2023-12-06 11:15 | XMS_ITS | Continuity of Care Document ---
Author Organization [facility] Address [address] [place] [address]- Care Team Providers Care Stained Glass Artist Name Role Phone Cole Dorado MD Primary Care Physician En[place] [facility] [place] Date(s): 05/20/23 - 07/14/23 [facility] [address] [place] [address]- Attending Physician: Tina Alejandro MD Admitting Physician: Tina Alejandro MD Referring Physician: Cole Dorado MD Allergies, [...] Team Personnel Name: Erik Waddell DO Position: [facility] QUALITY ANALYST MD Member Role: Lifetime QUALITY ANALYST Physician Address: Address: [address] [place] [address]- Name: Cole Dorado MD Position: [facility] Physician - Primary Care Member Role: PCP Address: Address: [address] [place] [address]- Name: Sary Isaac RN Position: [facility] RN Member Role: Primary Care Nurse Name: Martínez DUNBAR, Lalitha Huff Position: [facility] Onco RN Member Role: Primary Care Nurse Care Team Related Persons Name: KINA SHABAZZ Address: home [address] [address] Name: GUEVARA SHABAZZ Address: home [address] [place] [address]
--- OUTSIDE RECORDS SUMMARY | 2023-12-06 11:15 | XMS_ITS | Continuity of Care Document ---
Author Organization [facility] Last n's [facility] Address [address] [facility], 4t [place] [address]- Care Team Providers Care Mobile Battery Technician Name Role Phone Cole Dorado MD Primary Care Physician [place] [facility] [place] Date(s): 02/16/23 - 03/18/23 [facility] Cesarmaximus CormierTrueVaults [facility] [address] [facility], 4th [place], [place] [address] Allergies, Adverse Reactions, Alerts Substance Reaction [...] 14:25:32 EST Start Date: 02/20/16 Status: Ordered Kalra 1 tablet, By Mouth, Daily in AM, [...] Waddell DO Position: [facility] METAL MACHINIST MD Member Role: Lifetime METAL MACHINIST Physician Address: Address: [address] [place] [address]- Name: Cole Dorado MD Position: [facility] Physician - Primary Care Member Role: PCP Address: Address: [address] [place] [address]- Name: Sary Isaac RN Position: [facility] RN Member Role: Primary Care Nurse Name: Martínez DUNBAR, Lalitha Huff Position: [facility] Onco RN Member Role: Primary Care Nurse Care Team Related Persons Name: KINA SHABAZZ Address: home [address] [facility] [address] [place] [address] Name: GUEVARA SHABAZZ Address: home [address] [place] [address]
--- OUTSIDE RECORDS SUMMARY | 2023-12-06 11:15 | XMS_ITS | Continuity of Care Document ---
Author Organization [facility] Address [address] [facility], 4t [place] [address]- Care Team Providers Care Vault Keeper Name Role Phone Cole Dorado MD Primary Care Physician [place] [facility] [place] 07/08/21 - 08/07/21 [facility] [employer] [facility] [address] [facility], 4th [place], [place] [address] Allergies, Adverse Reactions, Alerts [...]
--- OUTSIDE RECORDS SUMMARY | 2023-12-06 11:15 | XMS_ITS | Continuity of Care Document ---
Author Organization [facility] Address [address] [facility], 4t [place] [address]- Care Team Providers Care Power And Recovery Supervisor Name Role Phone Cole Dorado MD Primary Care Physician [place] [facility] [place]): 01[place]12/22 - 02/11/22 [facility] [employer]ianKe Information [employer] [facility] [address] [facility], 4th Floor [place], [place] [address] Allergies, Adverse Reactions, Alerts Substance [...] Personnel Name: Erik Waddell DO Position: [facility] HYDRAULIC CORRUGATING MACHINE OPERATOR MD Member Role: Lifetime HYDRAULIC CORRUGATING MACHINE OPERATOR Physician Address: Address: [address] [place] [address]'s [facility] [place] [address]- Name: Cole Dorado MD Position: [facility] Physician (General Medicine) Member Role: PCP Address: Address: [address] [place] [address]- Name: Sary Isaac RN Position: [facility] RN Member Role: Primary Care Nurse Name: Martínez DUNBAR, Lalitha Huff Position: [facility] Onco RN Member Role: Primary Care Nurse Care Team Related Persons Name: KINA SHABAZZ Address: home [address] [facility] [address] [place] [address] Name: GUEVARA SHABAZZ Address: home [address] [place] [address]
--- OUTSIDE RECORDS SUMMARY | 2023-12-06 11:15 | XMS_ITS | Continuity of Care Document ---
Author Organization [facility] Last n's [facility] Address [address] [facility], 4t [place] [address]- Care Team Providers Care Body Recall Instructor Name Role Phone Cole Dorado MD Primary Care Physician En[place] [facility] [place] Date(s): 07/29/22 - 08/28/22 [facility] [place] [facility] [facility] [address] [facility], 4th Floor [place], [place] [address] Attending Physician: Admtr, Ar8 Allergies, Adverse Reactions, [...] tablet, Refills 0, Tot. Refills 0, Acute 08/29/22 15:21:00 EDT, as needed for pain, 07/29/22 15:20:00 EDT, Route to Pharmacy Electronically, [facility] [id number] [facility], Partial fill upon patient request if... Start Date: 07/29/22 Stop Date: 08/29/22 Status: Ordered traZODone 100 mg oral tablet 2 tablets, By Mouth, Daily at bedtime, # 180 tablet, Refills 0, Maintenance, 06/08/21 9:22:00 EDT, Partial fill upon patient request if the prescription is for a schedule II opioid drug. Start Date: 06/08/21 Status: Ordered Vivelle-Dot 0.025 mg/24 hours twice weekly transdermal film, extended release 1 patch, Topically, Every Tuesday and , # 8 patch, 3 Refills, Maintenance, 07/29/22 15:16:00EDT, [facility], Partial fill upon patient request if the prescription is for a schedule II opioid drug., 153, cm, 07/29/22 15:06:00... Start Date: 07/29/22 Status: Ordered Problem List Condition Confirmation Course [...] Team Personnel Name: Erik Waddell DO Position: [facility] JAVA DEVELOPMENT MANAGER MD Member Role: Lifetime JAVA DEVELOPMENT MANAGER Physician Address: Address: [address] [place] [address]'s [facility] [place] [address]- Name: Cole Dorado MD Position: [facility] Physician - Primary Care Member Role: PCP Address: Address: [address] [place] [address]- Name: Sary Isaac RN Position: [facility] RN Member Role: Primary Care Nurse Name: Lalitha Soliz RN Position: [facility] Onco RN Member Role: Primary Care Nurse Care Team Related Persons Name: KINA SHABAZZ Address: home [address] [address] Name: GUEVARA SHABAZZ Address: home [address] [place] [address]
--- OUTSIDE RECORDS SUMMARY | 2023-12-06 11:16 | XMS_ITS | Continuity of Care Document ---
Author Organization [facility] Address [address] [facility], 4t [place] [address]- Care Team Providers Care Tableau Administrator Name Role Phone Cole Dorado MD Primary Care Physician En[facility] [place] Date(s): 09/15/20 - 10/15/20 [facility] [employer] [facility] [address] [facility], 4th [place], [place] [address] Allergies, Adverse Reactions, Alerts Substance Reaction [...] Refills, Soft Stop, 07/29/20 11:38:00 EDT, Tablet, [id number], Partial fill upon patient request if the [...] 01/16/20 8:32:00 EDT, Route to Pharmacy Electronically, [facility] Start Date: 01/16/20 Status: Ordered Flonase 1 [...] Refills, Maintenance, 03/01/20 12:07:00 EST, [id number], 153, cm, 01/15/20 16:14:00 EDT, [...] Maintenance,01/22/20 14:27:00 EDT, Tablet, [facility][id number], 153, cm, 01/15/20 16:14:00 EDT, Height,57, kg, [...]
--- OUTSIDE RECORDS SUMMARY | 2023-12-06 11:16 | XMS_ITS | Continuity of Care Document ---
Author Organization [facility] Address [address] [facility], [address] [place] [address]- Care Team Providers Care Turbine Engineer Name Role Phone Cole Dorado MD Primary Care Physician Encounter 06/20/20 - 08/22/20 [facility] [address], [address] [place] [address]- Attending Physician: Rashi Ross MD Admitting Physician: Rashi Ross MD Referring Physician: Rashi Ross MD Allergies, Adverse Reactions, Alerts Substance Reaction Severity Status doxycycline c-diff Active droperidol Tongue swelling Active Amerge Tongue swelling Active Reglan Tongue swelling Active Maxalt tongue swells Active [...] 04/15/17 10:01:14 Start Date: 1/19/18 Status: Ordered Diflucan 150 mg oral tablet 1 tablet = 150 mg, By Mouth, Once, Take 1 tablet today. Repeat dose in 48 hours., # 2 tablet, 0 Refills, Soft Stop, 07/29/20 11:38:00 EDT, Tablet, [id number], Partial fill upon patient request if the [...] 01/16/20 8:32:00 EDT, [facility] to Pharmacy Electronically, [facility]... Start Date: 01/16/20 Status: Ordered Flonase 1 [...] Refills, Maintenance, 03/01/20 12:07:00 EST, [id number], 153, cm, 01/15/20 16:14:00 EDT, [...] Maintenance,01/22/20 14:27:00 EDT, Tablet, [facility][id number], 153, cm, 01/15/20 16:14:00 EDT, Height,57, kg, [...]
--- OUTSIDE RECORDS SUMMARY | 2023-12-06 11:16 | XMS_ITS | Continuity of Care Document ---
Author Organization [facility] Address [address] [facility], 4t [place] [address]- Care Team Providers Care Printing Mechanist Name Role Phone Cole Dorado MD Primary Care Physician [place] [facility] [place](s): 04/03/19 - 04/10/19 [facility] [address] [facility], 4th [place] [address]- Attending Physician: Alex FLORES, Rashi Freeman Referring Physician: Cole Dorado MD Allergies, Adverse [...] Soft Stop, 04/03/19 14:35:00 EST, [id number], 153, cm, 04/03/19 14:21:00 EST, [...] oldest [Reference Range]: 1 Height 153 cm (04/03/19 2:21 PM) Weight 55.36 kg (04/03/19 2:21 PM) Body Mass Index [18.5-24.99] 23.65 (04/03/19 2:21 PM) Blood Pressure [90-138/55-84 mm Hg] 119/ 72mm Hg (04/03/19 2:21 PM) Blood pressure sites Arm, right (04/03/19 2:21 PM) Weight Obtained Via Standing scale (04/03/19 2:21 PM) Social History Social History Type Response Smoking Status Never smoker; Tobacc o user in household: No entered on: 01/28/16 Sex
--- OUTSIDE RECORDS SUMMARY | 2023-12-06 11:16 | XMS_ITS | Continuity of Care Document ---
Author Organization [facility] Last n's [facility] Address [address], 4t [place] [address]- Care Team Providers Care Hospice Care Consultant Name Role Phone Cole Dorado MD Primary Care Physician [place] [facility] [place] Date(s): 02/27/21 - 03/29/21 [facility] [address], 4th [place] [address]- Allergies, Adverse Reactions, Alerts Substance Reaction Severity [...] Daily, # 90 tablet, 3 Refills, Maintenance, 02/27/21 17:35:00 EST, Tablet, [facility], 152.4, cm, 02/12/21 10:04:00 EST, Height, 61.36, kg, 01/07/21 13:11:00 EDT, Dry Weight Start Date: 02/27/21 Status: Ordered Synthroid 0.025 mg oral tablet [...] tablet, 3 Refills, Maintenance,01/22/20 14:27:00 EDT, Tablet, [facility] #[id number], 153, cm, 01/15/20 16:14:00 EDT, Height,57, kg, [...]
--- OUTSIDE RECORDS SUMMARY | 2023-12-06 11:16 | XMS_ITS | Continuity of Care Document ---
Author Organization [facility] Cesar Ni nNikitas [facility] Address [address], 4t [place] [address]- Care Team Providers Care Sales Inspector Name Role Phone Cole Dorado MD Primary Care Physician [place] [facility] [place] Date(s): 11/26/22 - 12/26/22 [facility] Cesarmaximus Valencias [facility] [address], 4th Floor [place], [place] [address] Allergies, Adverse Reactions, Alerts Substance Reaction Severity Status doxycycline c-diff Active Compazine tongue swells Active droperidol Tongue swelling Active Amerge Tongue swelling Active Maxalt tongue swells Active Keflex ITCHY AND RASH Active Demerol hallucinates Active Imitrex tongue swells Active Phenergan Tongue swelling Active Reglan Tongue swelling Active Immunizations Given [...] Team Personnel Name: Erik Waddell DO Position: [facility] BOX GLUER MD Member Role: Lifetime BOX GLUER Physician Address: Address: [address] [place] [address]'s [facility] [place] [address]- Name: Cole Dorado MD Position: [facility] Physician - Primary Care Member Role: PCP Address: Address: [address] [place] [address]- Name: Sary Isaac RN Position: [facility] RN Member Role: Primary Care Nurse Name: Martínez DUNBAR, Lalitha Huff Position: [facility] Onco RN Member Role: Primary Care Nurse Care Team Related Persons Name: KINA SHABAZZ Address: home [address] [place] [address] Name: GUEVARA SHABAZZ Address: home [address] [place] [address]
--- OUTSIDE RECORDS SUMMARY | 2023-12-06 11:16 | XMS_ITS | Continuity of Care Document ---
Author Organization [facility] ter Address [address] [place] [address]- Care Team Providers Care Health Policy Analyst Name Role Phone Cole Dorado MD Primary Care Physician Encounter [facility] [place] Date(s): 01/02/22 - 02/07/[address] [address] Attending Physician: Farnaz Tee MD Admitting Physician: Farnaz Tee MD Referring Physician: Farnaz Tee MD Allergies, Adverse Reactions, [...] Team Personnel Name: Erik Waddell DO Position: [facility] NATURAL GAS ENGINEER MD Member Role: Lifetime NATURAL GAS ENGINEER Physician Address: Address: [address] [place], [place] [address]s [facility] Continuous Improvement Director [place] [address]- Name: Cole Dorado MD Position: [facility] Physician (General Medicine) Member Role: PCP Address: Address: [address] [place] [address]- Name: Sary Isaac RN Position: [facility] RN Member Role: Primary Care Nurse Name: Lalitha Soliz RN Position: [facility] Onco RN Member Role: Primary Care Nurse Care Team Related Persons Name: KINA SHABAZZ Address: home [address] [address] Name: GUEVARA SHABAZZ Address: home [address] [place] [address]
--- OUTSIDE RECORDS SUMMARY | 2023-12-06 11:16 | XMS_ITS | Continuity of Care Document ---
Author Organization [facility] Address [address] [place] [address]- Care Team Providers Care Process Control Operator Name Role Phone Cole Dorado MD Primary Care Physician Encounter [facility] [place] Date(s): 06/03/20 - 07/03/20 [facility] [address] [address] Attending Physician: Merry Khan Admitting Physician: AdmMerry tony Referring Physician: AdmtrMerry Allergies, Adverse Reactions, Alerts [...] 01/16/20 8:32:00 EDT, Route to Pharmacy Electronically, [facility] Start Date: 01/16/20 Status: Ordered Flonase [...] Refills, Maintenance, 03/01/20 12:07:00 EST, [id number], 153, cm, 01/15/20 16:14:00 EDT, [...] tablet, 3 Refills, Maintenance,01/22/20 14:27:00 EDT, Tablet, [facility][id number], 153, cm, 01/15/20 16:14:00 EDT, Height,57, kg, [...]
--- OUTSIDE RECORDS SUMMARY | 2023-12-06 11:16 | XMS_ITS | Continuity of Care Document ---
Author Organization [facility] Address [address], 4t [place] [address]- Care Team Providers Care Sheriffs Officer Name Role Phone Cole Dorado MD Primary Care Physician [place] [facility] [place] Date(s): 01/12/22 - 02/11/22 [facility] [address], 4th [address] [place], [place] [address] Allergies, Adverse Reactions, Alerts [...] Personnel Name: Erik Waddell DO Position: [facility] OWNER MANAGER MD Member Role: Lifetime OWNER MANAGER Physician Address: Address: [address] [place] [address]'s [facility] It Technical Support [place] [address]- Name: Cole Dorado MD Position: [facility] Physician (General Medicine) Member Role: PCP Address: Address: [address] [place] [address]- Name: Sary Isaac RN Position: [facility] RN Member Role: Primary Care Nurse Name: Martínez DUNBAR, Lalitha Huff Position: [facility] Onco RN Member Role: Primary Care Nurse Care Team Related Persons Name: KINA SHABAZZ Address: home [address] [place] [address] Name: GUEVARA SHABAZZ Address: home [address] [place] [address]
--- OUTSIDE RECORDS SUMMARY | 2023-12-06 11:16 | XMS_ITS | Continuity of Care Document ---
Author Organization [facility] Last ns [facility] Address [address], 4[place] [address]- Care Team Providers Care Judicial Registrar Name Role Phone Cole Dorado MD Primary Care Physician En[facility] Date(s): 11/26/22 - 12/26/22 [facility] [address], 4th [place], [place] [address] Attending Physician: Admtr, Ar8 Allergies, Adverse Reactions, [...] Event Display: Non Radiology Results Authored Date: [id number] Patient Care team information Care Team Personnel Name: Erik Waddell DO Position: [facility] FOOTWEAR PRODUCTION MACHINE OPERATOR MD Member Role: Lifetime FOOTWEAR PRODUCTION MACHINE OPERATOR Physician Address: Address: [address] [place], [place] [address]s [facility] [place] [address]- Name: Cole Dorado MD Position: [facility] Physician - Primary Care Member Role: PCP Address: Address: [address] [place] [address]- Name: Sary Isaac RN Position: [facility] RN Member Role: Primary Care Nurse Name: Lalitha Soliz RN Position: [facility] Onco RN Member Role: Primary Care Nurse Care Team Related Persons Name: KINA SHABAZZ Address: home [address] [facility] [address] [address] Name: GUEVARA SHABAZZ Address: home [address] [place] [address]
--- OUTSIDE RECORDS SUMMARY | 2023-12-06 11:16 | XMS_ITS | Continuity of Care Document ---
Author Organization [facility] Last ns [facility] Address [address] [place] [address], 4t [place] [address]- Care Team Providers Care Ict Business Development Manager Name Role Phone Cole Dorado MD Primary Care Physician [place] [facility] [place] 03/30/23 - 04/29/23 [facility] [place] [facility] [address] [facility], 4th Floor [place], [place] [address] Attending Physician: AdmMerry tony [...] Team Personnel Name: Erik Waddell DO Position: [facility] CURING OVEN TENDER MD Member Role: Lifetime CURING OVEN TENDER Physician Address: Address: [address] [place] [address]- Name: Cole Dorado MD Position: [facility] Physician - Primary Care Member Role: PCP Address: Address: [address] [place] [address]- Name: Sary Isaac RN Position: [facility] RN Member Role: Primary Care Nurse Name: Martínez RN, Lalitha Huff Position: [facility] Onco RN Member Role: Primary Care Nurse Care Team Related Persons Name: KINA SHABAZZ Address: home [id number] [place] [address] Name: GUEVARA SHABAZZ Address: home [address] [place] [address]
--- OUTSIDE RECORDS SUMMARY | 2023-12-06 11:16 | XMS_ITS | Continuity of Care Document ---
Author Organization [facility] Armond chano Address [address] [place] [address] [address] [place] [address]- Care Team Providers Care Senior Svp Name Role Phone Cole Dorado MD Primary Care Physician En[place] [facility] [place] Date(s): 01/03/23 - 01/10/23 [facility] [address] [place], [place] [address] Attending Physician: Josh Leslie MD Allergies, Adverse Reactions, [...] recent to oldest [Reference Range]: 1 2 Height 153 cm (01/03/23 9:02 AM) 153 cm (01/03/23 8:59 AM) Weight 66.3 kg (01/03/23 9:02 AM) 66.3 kg (01/03/23 8:59 AM) Body Mass Index [18.5-24.99 kg/m2] 28.32 kg/m2 *H* (01/03/23 9:02 AM) 28.32 kg/m2 *H* (01/03/23 8:59 AM) Weight Obtained Via Standing scale (01/03/23 9:02 AM) Social History Social History Type Response Smoking Status Never smoker; Tobacc o user in household: No entered on: 01/28/16 Sex Patient Care team information Care Team Personnel Name: Erik Waddell DO Position: [facility] PICKLE SORTER MD Member Role: Lifetime PICKLE SORTER Physician Address: Address: [address] [place] [address]s [facility] [place] [address]- Name: Cole Dorado MD Position: [facility] Physician - Primary Care Member Role: PCP Address: Address: [address] [place] [address]- Name: Sary Isaac RN Position: S RN Member Role: Primary Care Nurse Name: Martínez DUNBAR, Lalitha Huff Position: [facility] Onco RN Member Role: Primary Care Nurse Care Team Related Persons Name: KINA SHABAZZ Address: home [address] [address] Name: GUEVARA SHABAZZ Address: home [address] [place] [address]
--- OUTSIDE RECORDS SUMMARY | 2023-12-06 11:16 | XMS_ITS | Continuity of Care Document ---
Author Organization [facility] Armond chano Address [address] [place] [address] [address]ri [address] [place] [address]- Care Team Providers Care Forder Operator Name Role Phone Cole Dorado MD Primary Care Physician [place] [facility](s[place] 09/12/21 - 01/10/22 [facility] [address] [place] [address]- Attending Physician: Josh Leslie MD Allergies, Adverse Reactions, Alerts Substance Reaction Severity Status doxycycline c-diff Active Maxalt tongue swells Active droperidol Tongue swelling Active Amerge Tongue swelling Active Keflex ITCHY AND RASH [...] on: 01/28/16 Sex Patient Care team information Personnel Name: Cole Dorado MD Address: Address: [address] [place] [address]
--- OUTSIDE RECORDS SUMMARY | 2023-12-06 11:16 | XMS_ITS | Continuity of Care Document ---
Author Organization [facility] Address [address], 4t [place] [address]- Care Team Providers Care Environmental Air Specialist Name Role Phone Cole Dorado MD Primary Care Physician [id number] Date[facility] 02/12/21 - 02/19/21 [facility] [address], 4th Floor [place], [place] [address] Attending Physician: Rashi Ross MD Referring Physician: Cole Dorado MD Allergies, [...] # 70 Gm, 5 Refills... Start Date: 02/12/21 Stop Date: 02/09/24 Status: Ordered Multivitamin Tablet 1 tablet, By [...] Daily, # 90 tablet, 3 Refills, Maintenance, 02/12/21 10:35:00 EST, [facility]t, [id number], 152.4, cm, 02/12/21 10:04:00 EST, Height, 61.36, kg, 01/07/21 13:11:00 EDT, Dry Weight Start Date: 02/12/21 Status: Ordered Synthroid 0.025 mg oral tablet [...] tablet, 3 Refills, Maintenance,01/22/20 14:27:00 EDT, Tablet, [facility] #[id number], 153, cm, 01/15/20 16:14:00 EDT, Height,57, kg, [...] oldest [Reference Range]: 1 Height 152.40 cm (02/12/21 10:04 AM) Weight 65.90 kg (02/12/21 10:04 AM) Body Mass Index [18.5-24.99] 28.37 *H* (02/12/21 10:04 AM) Blood Pressure [90-138/55-84 mm Hg] 118/ 80mm Hg (02/12/21 10:04 AM) Blood pressure sites Arm, left (02/12/21 10:04 AM) Weight Obtained Via Standing scale (02/12/21 10:04 AM) Social History Social History Type Response Smoking Status Never smoker; Tobacc o user in household: No entered on: 01/28/16 Sex
--- OUTSIDE RECORDS SUMMARY | 2023-12-06 11:16 | XMS_ITS | Continuity of Care Document ---
Author Organization [facility] Armond chano Address [address] [place] [address] [address] [place] [address]- Care Team Providers Care Arranger Assembler Name Role Phone Cole Dorado MD Primary Care Physician En[place] [facility] [place] Date(s): 06/23/21 - 06/30/21 [facility] [address] [place], [place] [address] Attending Physician: Josh Leslie MD Allergies, Adverse [...] oldest [Reference Range]: 1 Height 153 cm (06/23/21 2:05 PM) Weight 64 kg (06/23/21 2:05 PM) Body Mass Index [18.5-24.99] 27.34 *H* (06/23/21 2:05 PM) Social History Social History Type Response Smoking Status Never smoker; Tobacc o user in household: No entered on: 01/28/16 Sex
--- OUTSIDE RECORDS SUMMARY | 2023-12-06 11:16 | XMS_ITS | Continuity of Care Document ---
Author Organization [facility] Address [address] [place] [address]- Care Team Providers Care Bench Machine Operator Name Role Phone Cole Dorado MD Primary Care Physician En[facility] [place] Date(s): 03/01/22 - 03/31/22 [facility] [address] [address] Attending Physician: Merry Khan Admitting Physician: Merry [...] Implantation of left hypoglo ssal nerve stimulator 06/11/21 Completed Social History Social History Type Response Smoking Status Never smoker; Tobacc o user in household: No entered on: 01/28/16 Sex Patient Care team information Care Team Personnel Name: Erik Waddell DO Position: [facility] PIE DOUGH ROLLER MD Member Role: Lifetime PIE DOUGH ROLLER Physician Address: Address: [address] [place] [address]'s [facility] [place] [address]- Name: Cole Dorado MD Position: [facility] Physician (General Medicine) Member Role: PCP Address: Address: [address] [place] [address]- Name: Sary Isaac RN Position: [facility] RN Member Role: Primary Care Nurse Name: Martínez DUNBAR, Lalitha Huff Position: [facility] Onco RN Member Role: Primary Care Nurse Care Team Related Persons Name: KINA SHABAZZ Address: home [id number] [place] [address] Name: GUEVARA SHABAZZ Address: home [address] [place] [address]
--- OUTSIDE RECORDS SUMMARY | 2023-12-06 11:16 | XMS_ITS | Continuity of Care Document ---
Author Organization [facility] Cesar Ni n's [facility] Address [address], 4t [place] [address]- Care Team Providers Care Nuclear Operations Specialist Name Role Phone Cole Dorado MD Primary Care Physician En[place] [facility] [place] Date(s): 02/15/22 - 03/17/22 [facility] [address], 4th Floor [place], [place] [address] Allergies, Adverse Reactions, Alerts Substance Reaction [...] Erik Waddell DO Position: [facility] ACCOUNTS PAYABLES CLERK MD Member Role: Lifetime ACCOUNTS PAYABLES CLERK Physician Address: Address: [address] [place] [address]'s [facility] Director [place] Reg[place] [address]- Name: Cole Dorado MD Position: [facility] Physician (General Medicine) Member Role: PCP Address: Address: [address] [place] [address]- Name: Sary Isaac RN Position: [facility] RN Member Role: Primary Care Nurse Name: Martínez DUNBAR, Lalitha Huff Position: [facility] Onco RN Member Role: Primary Care Nurse Care Team Related Persons Name: KINA SHABAZZ Address: home [address] [facility] [address] [place] [address] Name: GUEVARA SHABAZZ Address: home [address] [facility] [place] [address]
--- OUTSIDE RECORDS SUMMARY | 2023-12-06 11:16 | XMS_ITS | Continuity of Care Document ---
Author Organization [facility] Cesar Ni n's [facility] Address [address], 4t [place] [address]- Care Team Providers Care Maintenance Inspector Name Role Phone Cole Dorado MD Primary Care Physician En[facility] [place] Date(s): 04/01/20 - 05/01/20 [facility] Cesar WomenAccelerated [facility] [address], 4th [place], [place] [address] Allergies, Adverse Reactions, Alerts Substance Reaction Severity [...] 01/16/20 8:32:00 EDT, Route to Pharmacy Electronically, [facility]... Start Date: 01/16/20 Status: Ordered Flonase [...] Refills, Maintenance, 03/01/20 12:07:00 EST, [id number], 153, cm, 01/15/20 16:14:00 EDT, [...] tablet, 3 Refills, Maintenance,01/22/20 14:27:00 EDT, Tablet, [facility] #[id number], 153, cm, 01/15/20 16:14:00 EDT, Height,57, kg, [...]
--- OUTSIDE RECORDS SUMMARY | 2023-12-06 11:16 | XMS_ITS | Continuity of Care Document ---
Author Organization [facility] ter Address [address] [place] [address]- Care Team Providers Care Automotive Upholsterer Name Role Phone Cole Dorado MD Primary Care Physician En[place] [facility] [place] Date(s): 06/19/21 - 06/19/[address] [address]- Encounter Diagnosis Neck swelling(Final) - 06/19/21 Discharge Disposition: A-D/C Home Attending Physician: Chuck Escalante DO Admitting Physician: Chuck Escalante DO Referring Physician: Not on Staff, Referring MD Allergies, Adverse Reactions, Alerts Substance Reaction [...] oldest [Reference Range]: 1 2 3 Height 153 cm (06/19/21 8:19 PM) 153 cm (06/19/21 4:01 PM) 153 cm (06/19/21 3:49 PM) Weight 64 kg (06/19/21 8:19 PM) 64 kg (06/19/21 4:01 PM) 64 kg (06/19/21 3:49 PM) Oxygen Saturation [94-100 %] 97 % (06/19/21 8:19 PM) 100 % (06/19/21 6:35 PM) 100 % (06/19/21 4:01 PM) Pulse Rate [55-90 bpm] 71 bpm (06/19/21 8:19 PM) 63 bpm (06/19/21 6:35 PM) 68 bpm (06/19/21 4:01 PM) Body Mass Index [18.5-24.99] 27.34 *H* (06/19/21 8:19 PM) 27.34 *H* (06/19/21 3:49 PM) Blood Pressure [90-138/55-84 mm Hg] 143/92mm Hg *H* (06/19/21 8:19 PM) 148/92mm Hg *H* (06/19/21 6:35 PM) 144/99mm Hg *H* (06/19/21 4:01 PM) Respiratory Rate [16-30 br/min] 18 br/min (06/19/21 8:19 PM) 18 br/min (06/19/21 6:35 PM) 19 br/min (06/19/21 4:01 PM) Temperature [96.8-100.4 DegF] 99.1 DegF (06/19/21 8:19 PM) 98 DegF (06/19/21 6:35 PM) 99.1 DegF (06/19/21 4:01 PM) Mode of Delivery (Oxygen) Room air (06/19/21 8:19 PM) Room air (06/19/21 6:35 PM) Room air (06/19/21 4:01 PM) Blood pressure sites Arm, left (06/19/21 8:19 PM) Arm, left (06/19/21 6:35 PM) Arm, left (06/19/21 4:01 PM) Temperature Route Oral (06/19/21 8:19 PM) Oral (06/19/21 6:35 PM) Oral (06/19/21 4:01 PM) Social History Social History Type Response Smoking Status Never smoker; Tobacc o user in household: No entered on: 01/28/16 Sex
--- OUTSIDE RECORDS SUMMARY | 2023-12-06 11:16 | XMS_ITS | Continuity of Care Document ---
Author Organization [facility] Address [address] [facility] [place] [address]- Care Team Providers Care Director Industrial Name Role Phone Estrada FLORES, Cole Garcia Primary Care Physician Encounter 04/24/20 - 07/20/20 [facility] [address], [address] [place] [address]- Attending Physician: Rashi Ross MD Admitting Physician: Rashi Ross MD Referring Physician: Rashi Ross MD Allergies, Adverse Reactions, Alerts Substance Reaction Severity Status doxycycline c-diff Active droperidol Tongue swelling Active Amerge Tongue swelling Active Maxalt tongue swells Active Keflex ITCHY AND RASH Active Imitrex tongue swells Active Phenergan Tongue swelling Active Demerol hallucinates Active Reglan Tongue swelling Active Compazine tongue swells Active [...] 01/16/20 8:32:00 EDT, Route to Pharmacy Electronically, [facility]... Start Date: 01/16/20 Status: Ordered Flonase [...] Refills, Maintenance, 03/01/20 12:07:00 EST, [id number], 153, cm, 01/15/20 16:14:00 EDT, [...] tablet, 3 Refills, Maintenance,01/22/20 14:27:00 EDT, Tablet, [facility] #[id number], 153, cm, 01/15/20 16:14:00 EDT, Height,57, kg, [...]
--- OUTSIDE RECORDS SUMMARY | 2023-12-06 11:16 | XMS_ITS | Continuity of Care Document ---
Author Organization [facility] Address [address] [facility], 4t [place] [address]- Care Team Providers Care Trimmer Sawyer Name Role Phone Cole Dorado MD Primary Care Physician En[place] [facility] [place] Date(s): 04/04/23 - 05/04/23 [facility] [address] [facility], [address]th [place], [place] [address] Allergies, Adverse Reactions, Alerts Substance Reaction [...] Team Personnel Name: Erik Waddell DO Position: [facility] PRODUCT SAFETY TESTER MD Member Role: Lifetime PRODUCT SAFETY TESTER Physician Address: Address: [address] [place] [address]- Name: Cole Dorado MD Position: [facility] Physician - Primary Care Member Role: PCP Address: Address: [address] [place] [address]- Name: Sary Isaac RN Position: [facility] RN Member Role: Primary Care Nurse Name: Martínez DUNBAR, Lalitha Huff Position: [facility] Onco RN Member Role: Primary Care Nurse Care Team Related Persons Name: KINA SHABAZZ Address: home [address] [facility] [address] [place] [address] Name: GUEVARA SHABAZZ Address: home [address] [place] [address]
--- OUTSIDE RECORDS SUMMARY | 2023-12-06 11:17 | XMS_ITS | Continuity of Care Document ---
Author Organization [facility] Last n's [facility] Address [address] [facility] [address], 4[address] [place] [address]- Care Team Providers Care Film Splicer Name Role Phone Cole Dorado MD Primary Care Physician [place] [facility] [place]): [place] - 10/02/22 [facility] CormierAuthentiums [facility] [address] [facility] [facility] [address], [address]th [place], [place] [address] Allergies, Adverse Reactions, Alerts Substance Reaction [...] EC Capsule Start Date: 01/30/17 Status: Ordered traZODone 100 mg oral tablet [...] Team Personnel Name: Erik Waddell DO Position: [facility] WAREHOUSE TRAFFIC SUPERVISOR MD Member Role: Lifetime WAREHOUSE TRAFFIC SUPERVISOR Physician Address: Address: [address] [place], [place] [address]s [facility] Check Scaler [place] [address]- [place] Name: Cole Dorado MD Position: [facility] Physician - Primary Care Member Role: PCP Address: Address: [address] [place] [address]- Name: Sary Isaac RN Position: [facility] RN Member Role: Primary Care Nurse Name: Martínez DUNBAR, Lalitha Huff Position: [facility] Onco RN Member Role: Primary Care Nurse Care Team Related Persons Name: KINA SHABAZZ Address: home [address] [place] [address] Name: GUEVARA SHABAZZ Address: home [address] [place] [address]
--- OUTSIDE RECORDS SUMMARY | 2023-12-06 11:17 | XMS_ITS | Continuity of Care Document ---
Author Organization [facility] Last n's [facility] Address [address] [facility], 4t [place] [address]- Care Team Providers Care Shellfish Shucker Name Role Phone Cole Dorado MD Primary Care Physician En[place] [facility] [place] Date(s): 05/14/21 - 06/13/21 [facility] Dubberlymaximus CormierJackrabbits [facility] [address] [facility], 4th [place] [address]- Allergies, Adverse Reactions, Alerts Substance Reaction Severity [...] 06/18/21 11:18:00 EDT, 06/11/21 11:18:00 EDT, Tablet, [facility] #[id number], Partial fill upon patient request if the [...] 06/14/21 11:20:00 EDT, 06/11/21 11:20:00 EDT, Capsule, [id number], Partial fill upon patient request if the [...] 06/11/21 11:18:00 EDT, Route to Pharmacy Electronically, [id number], Partial... Start Date: 06/11/21 Stop Date: 06/16/21 [...] 06/11/21 11:19:00 EDT, Route to Pharmacy Electronically, [facility][id number], Partial fill upon patient r... Start Date: 06/11/21 Stop Date: 06/16/21 Status: Ordered traZODone 100 mg oral tablet [...]
--- OUTSIDE RECORDS SUMMARY | 2023-12-06 11:17 | XMS_ITS | Continuity of Care Document ---
Author Organization [facility] Address [address] [facility], 4t [place] [address]- Care Team Providers Care Car Dryer Name Role Phone Cole Dorado MD Primary Care Physician En[place] [facility] [place] Date(s): 05/11/22 - 06/10/22 [facility] CasaConnolly[facility] [address] [facility], 4th Floor [place], [place] [address] Allergies, Adverse Reactions, Alerts Substance Reaction Severity Status doxycycline c-diff Active droperidol Tongue swelling Active Compazine tongue swells Active Reglan Tongue swelling Active Amerge Tongue swelling Active Maxalt tongue swells Active Keflex ITCHY AND RASH Active Demerol hallucinates Active Imitrex tongue swells Active Phenergan Tongue swelling Active Immunizations Given and Recorded [...] Personnel Name: Erik Waddell DO Position: [facility] COIL REPAIR TECHNICIAN MD Member Role: Lifetime COIL REPAIR TECHNICIAN Physician Address: Address: [address] [place] [address]'s [facility] [place] [address]- Name: Cole Dorado MD Position: [facility] Physician (General Medicine) Member Role: PCP Address: Address: [address] [place] [address]- Name: Sary Isaac RN Position: [facility] RN Member Role: Primary Care Nurse Name: Martínez DUNBAR, Lalitha Huff Position: [facility] Onco RN Member Role: Primary Care Nurse Care Team Related Persons Name: KINA SHABAZZ Address: home [address] [place] [address] Name: GUEVARA SHABAZZ Address: home [address] [place] [address]
--- OUTSIDE RECORDS SUMMARY | 2023-12-06 11:17 | XMS_ITS | Continuity of Care Document ---
Author Organization [facility] Ceasr Ni n's [facility] Address [address] [facility], 4t [place] [address]- Care Team Providers Care Slotter Operator Helper Name Role Phone Cole Dorado MD Primary Care Physician En[place] [facility] [place] Date(s): 07/02/22 - 08/01/22 [facility] [employer]ive CasaSpongecells [facility] [address] [facility], 4th [place], [place] [address] Allergies, Adverse Reactions, Alerts [...] 07/29/22 15:20:00 EDT, [facility] to [id number], Partial fill upon patient request [...] Team Personnel Name: Erik Waddell DO Position: [facility] PHP LAMP DEVELOPER MD Member Role: Lifetime PHP LAMP DEVELOPER Physician Address: Address: [address] [place] [address]'s [facility] [place] [address]- Name: Cole Dorado MD Position: [facility] Physician (General Medicine) Member Role: PCP Address: Address: [address] [place] [address]- Name: Sary Isaac RN Position: [facility] RN Member Role: Primary Care Nurse Name: Lalitha Soliz RN Position: [facility] Onco RN Member Role: Primary Care Nurse Care Team Related Persons Name: KINA SHABAZZ Address: home [address] [address] Name: GUEVARA SHABAZZ Address: home [address] [place] [address]
--- OUTSIDE RECORDS SUMMARY | 2023-12-06 11:17 | XMS_ITS | Continuity of Care Document ---
Author Organization [facility] Address [address] [facility], 4t [place] [address]- Care Team Providers Care Mosaic Tile Maker Name Role Phone Cole Dorado MD Primary Care Physician En[facility] [place] Date(s): 03/09/23 - 04/29/23 [facility] [address] [facility], 4th Floor [place], [place] [address] Attending Physician: Not on Staff, Attending MD Referring Physician: Marcela Greenberg MD Allergies, [...] Team Personnel Name: Erik Waddell DO Position: [facility] AS400 OPERATOR MD Member Role: Lifetime AS400 OPERATOR Physician Address: Address: [address] [place] [address]- Name: Cole Dorado MD Position: [facility] Physician - Primary Care Member Role: PCP Address: Address: [address] [place] [address]- Name: Sary Isaac RN Position: [facility] RN Member Role: Primary Care Nurse Name: Martínez DUNBAR, Lalitha Huff Position: [facility] Onco RN Member Role: Primary Care Nurse Care Team Related Persons Name: KINA SHABAZZ Address: home [id number] [place] [address] Name: GUEVARA SHABAZZ Address: home [address] [place] [address]
--- OUTSIDE RECORDS SUMMARY | 2023-12-06 11:17 | XMS_ITS | Continuity of Care Document ---
Author Organization [facility] Last n's [facility] Address [address] [facility], 4t [place] [address]- Care Team Providers Care Creative Art Therapist Name Role Phone Cole Dorado MD Primary [id number] Date(s[facility] 01/14[facility]22 - 01/21/22 [facility]aKareos [facility] [address] [facility], 4th [place], [place] [address] Attending Physician: Rashi Ross MD [...] oldest [Reference Range]: 1 Height 153 cm (01/14/22 11:37 AM) Weight 65.45 kg (01/14/22 11:37 AM) Body Mass Index [18.5-24.99 kg/m2] 27.96 kg/m2 *H* (01/14/22 11:37 AM) Blood Pressure [90-138/55-84 mm Hg] 120/ 80mm Hg (01/14/22 11:37 AM) Blood pressure sites Arm, left (01/14/22 11:37 AM) Weight Obtained Via Standing scale (01/14/22 11:37 AM) Social History Social History Type Response Smoking Status Never smoker; Tobacc o user in household: No entered on: 01/28/16 Sex Patient Care team information Personnel Name: Estrada FLORES, Cole Garcia Address: Address: [address] [place] [address]
--- OUTSIDE RECORDS SUMMARY | 2023-12-06 11:17 | XMS_ITS | Continuity of Care Document ---
Author Organization [facility] Cesar Ni n's [facility] Address [address] [facility], 4t [place] [address]- Care Team Providers Care Canal Lock Tender Chief Operator Name Role Phone Cole Dorado MD Primary Care Physician [place] [facility] [place]04/20 - 12/04/20 [facility] [employer] [facility]Well [employer]ones [facility] [address] [facility], [address]th [place], [place] [address] Allergies, Adverse Reactions, Alerts [...] Refills, Soft Stop, 07/29/20 11:38:00 EDT, Tablet, [facility][id number], Partial fill upon patient request if the [...] 01/16/20 8:32:00 EDT, Route to Pharmacy Electronically, [facility] Start Date: 01/16/20 Status: Ordered Flonase 1 [...] Refills, Maintenance, 03/01/20 12:07:00 EST, [id number], 153, cm, 01/15/20 16:14:00 EDT, [...] Maintenance,01/22/20 14:27:00 EDT, Tablet, [facility] #[id number], 153, cm, 01/15/20 16:14:00 EDT, Height,57, kg, [...]
--- OUTSIDE RECORDS SUMMARY | 2023-12-06 11:17 | XMS_ITS | Continuity of Care Document ---
Author Organization [facility] Address [address] [facility], 4t [place] [address]- Care Team Providers Care Neurosurgery Research Director Name Role Phone Cole Dorado MD Primary Care Physician [place] [facility] [place](s): 04/08/22 - 05/08/22 [facility] [address] [facility] [facility] [facility], 4th Floor [place], [place] [address] Allergies, Adverse Reactions, Alerts Substance Reaction Severity [...] Personnel Name: Erik Waddell DO Position: [facility] MEDICAL WRITER MD Member Role: Lifetime MEDICAL WRITER Physician Address: Address: [address] [place] [address]'s [facility] [place] [address]- Name: Cole Dorado MD Position: [facility] Physician (General Medicine) Member Role: PCP Address: Address: [address] [place] [address]- Name: Sary Isaac RN Position: [facility] RN Member Role: Primary Care Nurse Name: Martínez DUNBAR, Lalitha Huff Position: [facility] Onco RN Member Role: Primary Care Nurse Care Team Related Persons Name: KINA SHABAZZ Address: home [address] [facility] [place] [address] Name: GUEVARA SHABAZZ Address: home [address] [place] [address]
--- OUTSIDE RECORDS SUMMARY | 2023-12-06 11:17 | XMS_ITS | Continuity of Care Document ---
Author Organization [facility] Last n's [facility] Address [address] [facility], 4t [place] [address]- Care Team Providers Care Tower Switch Operator Name Role Phone Cole Dorado MD Primary Care Physician [place] [facility] [place]14[place]21 - 06/13/21 [facility] [place] CasaBreath of Lifes [facility] [address] [facility], 4th [place], [place] [address] Allergies, Adverse Reactions, Alerts Substance Reaction [...] 06/18/21 11:18:00 EDT, 06/11/21 11:18:00 EDT, Tablet, [facility] #[id number], Partial fill upon patient request if the [...] 06/14/21 11:20:00 EDT, 06/11/21 11:20:00 EDT, Capsule, [facility][id number], Partial fill upon patient request if the [...] 06/11/21 11:18:00 EDT, Route to Pharmacy Electronically, [facility] #[id number], Partial... Start Date: 06/11/21 Stop Date: 06/16/21 [...] 06/11/21 11:19:00 EDT, Route to Pharmacy Electronically, [facility] #[id number], Partial fill upon patient r... Start Date: [...]
--- OUTSIDE RECORDS SUMMARY | 2023-12-06 11:17 | XMS_ITS | Continuity of Care Document ---
Author Organization [facility] Armond chano Address [address] [place] [address] [address] [place] [address]- Care Team Providers Care Director Of Public Health Name Role Phone Cole Dorado MD Primary Care Physician En[place] [facility] [place] Date(s): 07/10/21 - 07/17/21 [facility] [address] [place], [place] [address] Attending Physician: Josh Leslie MD Referring Physician: [...] oldest [Reference Range]: 1 Height 153 cm (07/10/21 1:08 PM) Temperature [96.8-100.4 DegF] 98.1 DegF (07/10/21 1:08 PM) Temperature Route Temporal (07/10/21 1:08 PM) Social History Social History Type Response Smoking Status Never smoker; Tobacc o user in household: No entered on: 01/28/16 Sex
--- OUTSIDE RECORDS SUMMARY | 2023-12-06 11:17 | XMS_ITS | Continuity of Care Document ---
Author Organization [facility] Armond chano Address [address] [place] [address] [address] [place] [address]- Care Team Providers Care Mechanical Systems Design Engineer Name Role Phone Cole Dorado MD Primary Care Physician En[place] [facility] [place] Date(s): 06/08/21 - 07/08/21 [facility] [address] [place], [place] [address] Attending Physician: AdmMerry tony Admitting Physician: AdmtrMerry Referring Physician: Admtr, Ar8 Allergies, Adverse Reactions, Alerts [...] 1, tablet, By Mouth, Every 6 hours, for 5 days, # 12 each, Refills 0, Tot. Refills 0, Acute 07/13/21 18:07:00 EDT, 07/08/21 18:06:00 EDT, Route to Pharmacy Electronically, [facility] [id number] [facility], Partial fill upon patient request if the prescriptio... Start Date: 07/08/21 Stop Date: 07/13/21 Status: Ordered traZODone 100 mg oral tablet [...]
--- OUTSIDE RECORDS SUMMARY | 2023-12-06 11:17 | XMS_ITS | Continuity of Care Document ---
Author Organization [facility] Address [address] [facility], 4t [place] [address]- Care Team Providers Care Labor Contract Analyst Name Role Phone oCle Dorado MD Primary Care Physician [place] [facility] [place] Date(s): 10/26/22 - 11/25/22 [facility] CormierFotoshkolas [facility] [address] [facility], 4th [place], [place] [address] Allergies, Adverse Reactions, Alerts Substance [...] Position: [facility] DOCKMASTER MD Member Role: Lifetime DOCKMASTER Physician Address: Address: [address] [place], [place] [address]s [facility] Health Information Specialist [place] [address]- [place] Name: Cole Dorado MD Position: [facility] Physician - Primary Care Member Role: PCP Address: Address: [address] [place] [address]- Name: Sary Isaac RN Position: [facility] RN Member Role: Primary Care Nurse Name: Martínez DUNBAR, Lalitha Huff Position: [facility] Onco RN Member Role: Primary Care Nurse Care Team Related Persons Name: KINA SHABAZZ Address: home [address] [place] [address] Name: GUEVARA SHABAZZ Address: home [address] [place] [address]
--- OUTSIDE RECORDS SUMMARY | 2023-12-06 11:17 | XMS_ITS | Continuity of Care Document ---
Author Organization [facility] Address [address] [facility], 4t [place] [address]- Care Team Providers Care Operator Maintainer Name Role Phone Cole Dorado MD Primary Care Physician [id number] Date(s): 07/29/22 - 08/05/22 [facility] Cesar WomenViewfinitys [facility] [address] [facility], 4th Floor [place], [place] [address] Attending Physician: Rashi Ross MD Allergies, [...] 07/29/22 15:20:00 EDT, Route to Pharmacy Electronically, [id number], Partial fill upon patient request [...] Procedure Date Related Diagnosis Body Site Status Excisional release of nose s car in preparation for local flap, nose reconstruction with local flap 12/24/21 C ompleted Vital Signs Most recent to oldest [Reference Range]: 1 Height 153 cm (07/29/22 3:06 PM) Weight 63.63 kg (07/29/22 3:06 PM) Body Mass Index [18.5-24.99 kg/m2] 27.18 kg/m2 *H* (07/29/22 3:06 PM) Blood Pressure [90-138/55-84 mm Hg] 130/ 100mm Hg (07/29/22 3:06 PM) Blood pressure sites Arm, left (07/29/22 3:06 PM) Weight Obtained Via Standing scale (07/29/22 3:06 PM) Social History Social History Type Response Smoking Status Never smoker; Tobacc o user in household: No entered on: 01/28/16 Sex Patient Care team information Care Team Personnel Name: Erik Waddell DO Position: [facility] DIGITAL MARKETING STRATEGIST MD Member Role: Lifetime DIGITAL MARKETING STRATEGIST Physician Address: Address: [address] [place] [address]'s [facility] [place] [address]- Name: Cole Dorado MD Position: [facility] Physician (General Medicine) Member Role: PCP Address: Address: [address] [place] [address]- Name: Sary Isaac RN Position: [facility] RN Member Role: Primary Care Nurse Name: Lalitha Soliz RN Position: [facility] Onco RN Member Role: Primary Care Nurse Care Team Related Persons Name: KINA SHABAZZ Address: home [address] [address] Name: GUEVARA SHABAZZ Address: home [address] [place] [address]
--- OUTSIDE RECORDS SUMMARY | 2023-12-06 11:17 | XMS_ITS | Continuity of Care Document ---
Author Organization [facility] Armond chano Address [address] [place] [address] [address] [place] [address]- Care Team Providers Care Clarity Specialists Name Role Phone Cole Dorado MD Primary Care Physician [place] [facility] [place] Date(s): 04/20/22 - 08/18/22 [facility] [address] [place], [place] [address] Attending Physician: Josh Leslie MD Referring [...] 15:20:00 EDT, [id number], Partial fill upon patient request [...] Team Personnel Name: Erik Waddell DO Position: [facility] BASE MANAGER MD Member Role: Lifetime BASE MANAGER Physician Address: Address: [address] [place] [address]'s [facility] Senior [place] [address]- Name: Cole Dorado MD Position: [facility] Physician (General Medicine) Member Role: PCP Address: Address: [address] [place] [address]- Name: Sary Isaac RN Position: [facility] RN Member Role: Primary Care Nurse Name: Lalitha Soliz RN Position: [facility] Onco RN Member Role: Primary Care Nurse Care Team Related Persons Name: KINA SHABAZZ Address: home [address] [address] Name: GUEVARA SHABAZZ Address: home [address] [place] [address]
--- OUTSIDE RECORDS SUMMARY | 2023-12-06 11:17 | XMS_ITS | Continuity of Care Document ---
Author Organization [facility] Armond chano Address [address] [place] [address] [address] [place] [address]- Care Team Providers Care Direct Mail Marketer Name Role Phone Cole Dorado MD Primary Care Physician Encounter [facility] [place] [place] Date(s): 06/08/21 - 06/15/21 [facility] [address] [place], [place] [address] Attending Physician: Josh Leslie MD Referring Physician: Cole Dorado MD Allergies, Adverse Reactions, Alerts Substance Reaction Severity Status doxycycline c-diff Active droperidol Tongue swelling Active Amerge Tongue swelling Active Compazine tongue swells Active Demerol hallucinates Active Reglan Tongue swelling Active Maxalt tongue [...] 06/18/21 11:18:00 EDT, 06/11/21 11:18:00 EDT, Tablet, [facility] #[id number], Partial fill upon patient request if the [...] 06/11/21 11:18:00 EDT, Route to Pharmacy Electronically, [facility] #[id number], Partial... Start Date: 06/11/21 Stop Date: 06/16/21 [...] 06/11/21 11:19:00 EDT, Route to Pharmacy Electronically, [facility] #[id number], Partial fill upon patient r... Start Date: [...] oldest [Reference Range]: 1 Height 152.40 cm (06/08/21 2:06 PM) Weight 66.4 kg (06/08/21 2:06 PM) Pulse Rate [55-90 bpm] 70 bpm (06/08/21 2:06 PM) Body Mass Index [18.5-24.99] 28.59 *H* (06/08/21 2:06 PM) Blood Pressure [90-138/55-84 mm Hg] 136/ 88mm Hg (06/08/21 2:06 PM) Blood pressure sites Arm, left (06/08/21 2:06 PM) Social History Social History Type Response Smoking Status Never smoker; Tobacc o user in household: No entered on: 01/28/16 Sex
--- OUTSIDE RECORDS SUMMARY | 2023-12-06 11:17 | XMS_ITS | Continuity of Care Document ---
Author Organization [facility] Address [address] [facility], 4t [place] [address]- Care Team Providers Care Logging Worker Name Role Phone Cole Dorado MD Primary Care Physician [id number] Date(s[facility] 09/10/21 - 10/10/21 [facility] [employer] Business Lenderss [facility] [address] [facility], 4th Floor [place], [place] [address] Allergies, Adverse Reactions, Alerts Substance [...]
--- OUTSIDE RECORDS SUMMARY | 2023-12-06 11:17 | XMS_ITS | Continuity of Care Document ---
Author Organization [facility] Address [address] [facility], 4t [place] [address]- Care Team Providers Care Cold Molding Press Operator Name Role Phone Cole Dorado MD Primary Care Physician En[place] [facility] [place] Date(s): 07/28/20 - 08/27/20 [facility] CormierTappxs [facility] [address] [facility], 4th [place] [address]- Allergies, Adverse Reactions, Alerts Substance Reaction Severity [...] Refills, Soft Stop, 07/29/20 11:38:00 EDT, Tablet, [facility][id number], Partial fill upon patient request if the [...] 01/16/20 8:32:00 EDT, Route to Pharmacy Electronically, [facility]... Start Date: 01/16/20 Status: Ordered Flonase 1 [...] Refills, Maintenance, 03/01/20 12:07:00 EST, [id number], 153, cm, 01/15/20 16:14:00 EDT, [...] tablet, 3 Refills, Maintenance,01/22/20 14:27:00 EDT, [facility], [id number], 153, cm, 01/15/20 16:14:00 EDT, Height,57, kg, [...]
--- OUTSIDE RECORDS SUMMARY | 2023-12-06 11:17 | XMS_ITS | Continuity of Care Document ---
Author Organization [facility] Last n's [facility] Address [address] [facility], 4t [place] [address]- Care Team Providers Care Temperature Regulator Name Role Phone Cole Dorado MD Primary Care Physician Encounter [facility] [place] Date(s): 08/23/23 - 09/22/23 [facility] CormierHeadwater Partnerss [facility] [address] [facility], [address]th [place], [place] [address] Allergies, Adverse Reactions, Alerts Substance Reaction [...] Name: Erik Waddell DO Position: [facility] ANALYTICS LEAD MD Member Role: Lifetime ANALYTICS LEAD Physician Address: Address: [address] [place] [address]- Name: Cole Dorado MD Position: [facility] Physician - Primary Care Member Role: PCP Address: Address: [address] [place] [address]- Name: Sary Isaac RN Position: [facility] RN Member Role: Primary Care Nurse Name: Martínez DUNBAR, Lalitha Huff Position: [facility] Onco RN Member Role: Primary Care Nurse Care Team Related Persons Name: KINA SHABAZZ Address: home [address] [place] [address] Name: GUEVARA SHABAZZ Address: home [address] [place] [address]
--- OUTSIDE RECORDS SUMMARY | 2023-12-06 11:18 | XMS_ITS | Continuity of Care Document ---
Author Organization [facility] chano Address [address] [place] [address] [address] [place] [address]- Care Team Providers Care Tire Center Supervisor Name Role Phone Cole Dorado MD Primary Care Physician Encounter [facility] [place] Date(s): 07/19/22 - 08/18/22 [facility] [address] [place], [place] [address] Attending Physician: Admchavo, Merry Admitting Physician: AdmtrMerry Referring Physician: Admtr, Ar8 [...] 07/29/22 15:20:00 EDT, Route to Pharmacy Electronically, [id number], Partial fill upon patient request [...] Waddell DO Position: [facility] GEOTHERMAL OPERATING ENGINEER MD Member Role: Lifetime GEOTHERMAL OPERATING ENGINEER Physician Address: Address: [address] [place] [address]'s [facility] [place] [address]- Name: Cole Dorado MD Position: [facility] Physician (General Medicine) Member Role: PCP Address: Address: [address] [place] [address]- Name: Sary Isaac RN Position: [facility] RN Member Role: Primary Care Nurse Name: Lalitha Soliz RN Position: [facility] Onco RN Member Role: Primary Care Nurse Care Team Related Persons Name: KINA SHABAZZ Address: home [address] [address] Name: GUEVARA SHABAZZ Address: home [address] [place] [address]
--- OUTSIDE RECORDS SUMMARY | 2023-12-06 11:18 | XMS_ITS | Continuity of Care Document ---
Author Organization [facility] Address [address] [facility], 4t [place] [address]- Care Team Providers Care Toddler Nanny Name Role Phone Cole Dorado MD Primary Care Physician [id number] Date[facility]): 05/08[facility]21 - 06/07/21 [facility] [place] [facility] [address] [facility], 4th [place], [place] [address] Allergies, Adverse Reactions, [...] Maintenance,01/22/20 14:27:00 EDT, Tablet, [id number], 153, cm, 01/15/20 16:14:00 EDT, Height,57, kg, [...]
--- OUTSIDE RECORDS SUMMARY | 2023-12-06 11:18 | XMS_ITS | Continuity of Care Document ---
Author Organization [facility] Last nJudobabys [facility] Address [address] [facility], 4t [place] [address]- Care Team Providers Care Slider Assembler Name Role Phone Cole Dorado MD Primary Care Physician En[facility] [place] Date(s): 07/19/23 - 08/18/23 [facility] CormierJudobabys [facility] [address] [facility], [address]th [place], [place] [address] Allergies, Adverse Reactions, Alerts Substance Reaction [...] Personnel Name: Erik Waddell DO Position: [facility] AUTOMOTIVE ELECTRICIAN MD Member Role: Lifetime AUTOMOTIVE ELECTRICIAN Physician Address: Address: [address] [place] [address]- Name: Cole Dorado MD Position: [facility] Physician - Primary Care Member Role: PCP Address: Address: [address] [place] [address]- Name: Sary Isaac RN Position: [facility] RN Member Role: Primary Care Nurse Name: Martínez DUNBAR, Lalitha Huff Position: [facility] Onco RN Member Role: Primary Care Nurse Care Team Related Persons Name: KINA SHABAZZ Address: home [address] [facility] [address] [place] [address] Name: GUEVARA SHABAZZ Address: home [address] [place] [address]
--- OUTSIDE RECORDS SUMMARY | 2023-12-06 11:18 | XMS_ITS | Continuity of Care Document ---
Author Organization [facility] Address [address] [facility], 4t [place] [address]- Care Team Providers Care Building Tech Name Role Phone Cole Dorado MD Primary Care Physician [place] [facility] Date(s): 07/04/20 - 08/03/20 [facility] CormierBackchats [facility] [address] [facility], 4th [place], [place] [address] Allergies, Adverse Reactions, Alerts [...] Refills, Soft Stop, 07/29/20 11:38:00 EDT, Tablet, [id number], Partial fill upon patient request if the [...] 01/16/20 8:32:00 EDT, Route to Pharmacy Electronically, [facility]... Start Date: 01/16/20 Status: Ordered Flonase 1 [...] Refills, Maintenance, 03/01/20 12:07:00 EST, [id number], 153, cm, 01/15/20 16:14:00 EDT, [...] Maintenance,01/22/20 14:27:00 EDT, Tablet, [facility] #[id number], 153, cm, 01/15/20 16:14:00 EDT, Height,57, kg, [...]
--- OUTSIDE RECORDS SUMMARY | 2023-12-06 11:18 | XMS_ITS | Continuity of Care Document ---
Author Organization [facility] Address [address] [facility] [place] [address]- Care Team Providers Care Automobile Rental Clerk Name Role Phone Cole Dorado MD Primary Care Physician Encounter 07/08/22 - 07/15/22 [facility] [address], [address] [place] [address]- Attending Physician: Rashi Ross MD Admitting Physician: [...] Exam Date Time Procedure Performing Provider Status 07/08/22 11:26 AM MM Digital Mammo Screening Ro Lopez; Moshe (Verified) Notes: (MM Digital Mammo Screening) Reason For Exam: Z12.31 ROUTINE SCREENING RESULT: MM Digital Mammo Screening PROCEDURE: MM Digital Mammo Screening INDICATION: Screening for breast cancer. No known palpable abnormalities. COMPARISON: ALEX dating back to 12/21/2017. TECHNIQUE: Full-field digital CC and MLO 3D tomosynthesis images of both breasts were acquired. Computer-aided detection (CAD) was utilized in the interpretation of this study. DENSITY: The breast tissue contains scattered areas of fibroglandular density. FINDINGS: No suspicious masses, suspicious microcalcifications, or areas of architectural distortion are seen in either breast to suggest malignancy. Powerpacks from medical devices obscure a portionof the axillary tail in each breast. IMPRESSION: No mammographic evidence of malignancy. RECOMMENDATION: Annual mammographic screening BI-RADS: 2 (Benign) Lay letter mailed to patient WSN: [id number] Ordering Physician: Rashi Ross Dictated By: Lydia Hardwick MD, I Dictated Date/Time: 07/08/22 3:20 pm Reviewed By: Lydia Hardwick MD, I Signed By: Lydia Hardwick MD, I Signed Date/Time: 07/08/22 3:20 pm Transcribed By: J LUIS Police Aide Date/Time: 07/08/22 3:17 pm Birads: Social History Social History Type Response Smoking Status Never smoker; Tobacc o user in household: No entered on: 01/28/16 Sex MG Breast Screening * BHSPowerscribe , CIS S: TRANSCRIBE Lydia Hardwick MD, I: VERIFY Event Display: Result: Authored Date: [id number] PROCEDURE: MM Digital Mammo Screening INDICATION: Screening for breast cancer. No known palpable abnormalities. COMPARISON: ALEX dating back to 12/21/2017. TECHNIQUE: Full-field digital CC and MLO 3D tomosynthesis images of both breasts were acquired. Computer-aided detection (CAD) was utilized in the interpretation of this study. DENSITY: The breast tissue contains scattered areas of fibroglandular density. FINDINGS: No suspicious masses, suspicious microcalcifications, or areas of architectural distortion are seen in either breast to suggest malignancy. Powerpacks from medical devices obscure a portionof the axillary tail in each breast. IMPRESSION: No mammographic evidence of malignancy. RECOMMENDATION: Annual mammographic screening BI-RADS: 2 (Benign) Lay letter mailed to patient WSN: [id number] Ordering Physician: Rashi Ross Dictated By: Lydia Hardwick MD, I Dictated Date/Time: 07/08/22 3:20 pm Reviewed By: Lydia Hardwick MD, I Signed By: Lydia Hardwick MD, I Signed Date/Time: 07/08/22 3:20 pm Transcribed By: J LUIS Police Aide Date/Time: 07/08/22 3:17 pm Birads: Patient Care team information Care Team Personnel Name: Erik Waddell DO Position: [facility] HEAD TURNING MACHINE OPERATOR MD Member Role: Lifetime HEAD TURNING MACHINE OPERATOR Physician Address: Address: [address] [place] [address]'s [facility] [place] [address]- Name: Cole Dorado MD Position: [facility] Physician (General Medicine) Member Role: PCP Address: Address: [address] [place] [address] Name: Sary Isaac RN Position: [facility] RN Member Role: Primary Care Nurse Name: Lalitha Soliz RN Position: [facility] Onco RN Member Role: Primary Care Nurse Care Team Related Persons Name: KINA SHABAZZ Address: home [address] [address] Name: GUEVARA SHABAZZ Address: home [address] [place] [address], [id number]
--- OUTSIDE RECORDS SUMMARY | 2023-12-06 11:18 | XMS_ITS | Continuity of Care Document ---
Author Organization [facility] Address [address] [place] [address]- Care Team Providers Care Medical Communication Specialist Name Role Phone Cole Dorado MD Primary Care Physician [place] [facility] [place] 04/23/22 - 05/23/[address] [address] Allergies, Adverse Reactions, Alerts Substance Reaction Severity Status doxycycline c-diff Active Imitrex tongue swells Active droperidol Tongue swelling Active Amerge Tongue swelling Active Maxalt tongue swells Active Keflex ITCHY AND RASH Active Demerol hallucinates Active Phenergan Tongue swelling Active Compazine tongue [...] Team Personnel Name: Erik Waddell DO Position: [facility] FINANCIAL OPERATIONS CONSULTANT MD Member Role: Lifetime FINANCIAL OPERATIONS CONSULTANT Physician Address: Address: [address] [facility] Publishing [place] [address]- [place] Name: Cole Dorado MD Position: [facility] Physician (General Medicine) Member Role: PCP Address: Address: [address] [place] [address]- Name: Sary Isaac RN Position: [facility] RN Member Role: Primary Care Nurse Name: Martínez DUNBAR, Lalitha Huff Position: [facility] Onco RN Member Role: Primary Care Nurse Care Team Related Persons Name: KINA SHABAZZ Address: home [address] [facility] [address] [place] [address] Name: GUEVARA SHABAZZ Address: home [address] [place] [address]
--- OUTSIDE RECORDS SUMMARY | 2023-12-06 11:18 | XMS_ITS | Continuity of Care Document ---
Author Organization [facility] Last n's [facility] Address [address] [facility], 4t [place] [address]- Care Team Providers Care Market Research Lead Name Role Phone oCle Dorado MD Primary Care Physician Encounter [facility] Date(s): 01/11/23 - 02/10/23 [facility] Cesarmaximus Cormieritzbigs [facility] [address] [facility], 4th [place], [place] [address] Allergies, Adverse Reactions, Alerts Substance Reaction Severity [...] Team Personnel Name: Erik Waddell DO Position: [facility] VICE PRESIDENT OF FINANCE MD Member Role: Lifetime VICE PRESIDENT OF FINANCE Physician Address: Address: [address] [place], [place] [address]s [facility] Gold Frame [place]sembler [place] [address]- [place] Name: Cole Dorado MD Position: [facility] Physician - Primary Care Member Role: PCP Address: Address: [address] [place] [address]- Name: Sary Isaac RN Position: [facility] RN Member Role: Primary Care Nurse Name: Lalitha Soliz RN Position: [facility] Onco RN Member Role: Primary Care Nurse Care Team Related Persons Name: KINA SHABAZZ Address: home [address] [address] Name: GEUVARA SHABAZZ Address: home [address] [place] [address]
--- OUTSIDE RECORDS SUMMARY | 2023-12-06 11:18 | XMS_ITS | Continuity of Care Document ---
Author Organization [facility] Last nPressure [employer] [facility] Address [address] [facility], 4t [place] [address]- Care Team Providers Care Worker'S Compensation Claims Examiner Name Role Phone Cole Dorado MD Primary Care Physician Encounter [facility] [place] Date(s): 02/16/23 - 03/18/23 [facility] Cesarmaximus CormierPressure BioSciencess [facility] [address] [facility], [address]th [place], [place] [address] Allergies, Adverse Reactions, Alerts Substance Reaction Severity Status doxycycline c-diff Active droperidol Tongue swelling Active Amerge Tongue swelling Active Maxalt tongue swells Active Imitrex tongue swells Active Phenergan Tongue swelling Active Demerol hallucinates Active Reglan Tongue swelling Active Keflex ITCHY AND RASH Active Compazine tongue swells Active Immunizations Given [...] Team Personnel Name: Erik Waddell DO Position: [facility] TRAFFIC MAINTENANCE SUPERVISOR MD Member Role: Lifetime TRAFFIC MAINTENANCE SUPERVISOR Physician Address: Address: [address] [place] [address]- Name: Cole Dorado MD Position: [facility] Physician - Primary Care Member Role: PCP Address: Address: [address] [place] [address]- Name: Sary Isaac RN Position: [facility] RN Member Role: Primary Care Nurse Name: Martínez DUNBAR, Lalitha Huff Position: [facility] Onco RN Member Role: Primary Care Nurse Care Team Related Persons Name: KINA SHABAZZ Address: home [address] [facility] [address] [place] [address] Name: GUEVARA SHABAZZ Address: home [address] [place] [address]
--- OUTSIDE RECORDS SUMMARY | 2023-12-06 11:18 | XMS_ITS | Continuity of Care Document ---
Author Organization [facility] Armond chano Address [address] [place] [address] [address] [place] [address]- Care Team Providers Care Journal Entry Audit Clerk Name Role Phone Cole Dorado MD Primary Care Physician En[facility] [place] Date(s): 04/28/20 - 05/28/20 [facility] [address] [place], [place] [address] Attending Physician: Admtr, Ar8 Admitting Physician: Admtr, Ar8 Referring Physician: Admtr, Ar8 Allergies, Adverse Reactions, [...] 01/16/20 8:32:00 EDT, Route to Pharmacy Electronically, [facility]... Start Date: 01/16/20 Status: Ordered Flonase [...] applicator 1 applicator, Vaginally, Every Tuesday and Thursday, for 26 week(s), For recurrent BV treat [...] Refills, Maintenance, 03/01/20 12:07:00 EST, Tablet, [id number], 153, cm, 01/15/20 16:14:00 EDT, [...] tablet, 3 Refills, Maintenance,01/22/20 14:27:00 EDT, Tablet, [facility][id number], 153, cm, 01/15/20 16:14:00 EDT, Height,57, kg, [...]
--- OUTSIDE RECORDS SUMMARY | 2023-12-06 11:18 | XMS_ITS | Continuity of Care Document ---
Author Organization [facility] Address [address] [facility], 4t [place] [address]- Care Team Providers Care Mangle Roll Operator Name Role Phone Cole Dorado MD Primary Care Physician Encounter [facility] [place] Date(s): 02/15/22 - 03/17/22 [facility] [employer] [facility] [address] [facility], 4th Floor [place], [place] [address] Allergies, Adverse Reactions, Alerts Substance [...] Personnel Name: Erik Waddell DO Position: [facility] TECHNICAL TESTING ENGINEER MD Member Role: Lifetime TECHNICAL TESTING ENGINEER Physician Address: Address: [address] [place] [address]'s [facility] Finisher [place] [address]- Name: Cole Dorado MD Position: [facility] Physician (General Medicine) Member Role: PCP Address: Address: [address] [place] [address]- Name: Sary Isaac RN Position: [facility] RN Member Role: Primary Care Nurse Name: Martínez DUNBAR, Lalitha Huff Position: [facility] Onco RN Member Role: Primary Care Nurse Care Team Related Persons Name: KINA SHABAZZ Address: home [address] [facility] [address] [place] [address] Name: GUEVARA SHABAZZ Address: home [address] [place] [address]
--- OUTSIDE RECORDS SUMMARY | 2023-12-06 11:18 | XMS_ITS | Continuity of Care Document ---
Author Organization [facility] Armond chano Address [address] [place] [address] [address] [place] [address]- Care Team Providers Care Kieselguhr Regenerator Operator Name Role Phone Cole Dorado MD Primary Care Physician [place] [facility] [place] [place] 04/05/22 - 04/12/22 [facility] [address] [place] [address]- Attending Physician: Josh Leslie MD Allergies, Adverse [...] oldest [Reference Range]: 1 Height 153 cm (04/05/22 2:20 PM) Weight 65.4 kg (04/05/22 2:20 PM) Pulse Rate [55-90 bpm] 86 bpm (04/05/22 2:20 PM) Body Mass Index [18.5-24.99 kg/m2] 27.94 kg/m2 *H* (04/05/22 2:20 PM) Blood Pressure [90-138/55-84 mm Hg] 139/ 92mm Hg *H* (04/05/22 2:20 PM) Blood pressure sites Arm, left (04/05/22 2:20 PM) Weight Obtained Via Bed scale (04/05/22 2:20 PM) Social History Social History Type Response Smoking Status Never smoker; Tobacc o user in household: No entered on: 01/28/16 Sex Patient Care team information Care Team Personnel Name: Erik Waddell DO Position: [facility] CLAIM INSPECTOR MD Member Role: Lifetime CLAIM INSPECTOR Physician Address: Address: [address] [place], [place] [address]s [facility] [place] [address]- Name: Cole Dorado MD Position: [facility] Physician (General Medicine) Member Role: PCP Address: Address: [address] [place] [address] Name: Sary Isaac RN Position: [facility] RN Member Role: Primary Care Nurse Name: Martínez DUNBAR, Lalitha Huff Position: [facility] Onco RN Member Role: Primary Care Nurse Care Team Related Persons Name: KINA SHABAZZ Address: home [address] [address] Name: GUEVARA SHABAZZ Address: home [address] [place] [address]
--- OUTSIDE RECORDS SUMMARY | 2023-12-06 11:18 | XMS_ITS | Continuity of Care Document ---
Author Organization [facility] Armond chano Address [address] [place] [address] D[address] ve [address] [place] [address]- Care Team Providers Care Technical Recruiter Name Role Phone Estrada FLORES, Cole Garcia Primary Care Physician [place] [facility] [place](s): 07/11/20 - 08/10/20 [facility] [address] [place] [address]- Allergies, Adverse Reactions, Alerts Substance Reaction Severity [...] Refills, Soft Stop, 07/29/20 11:38:00 EDT, Tablet, [facility][id number], Partial fill upon patient request if the [...] 01/16/20 8:32:00 EDT, Route to Pharmacy Electronically, [facility]... Start Date: 01/16/20 Status: Ordered Flonase 1 [...] Refills, Maintenance, 03/01/20 12:07:00 EST, [id number], 153, cm, 01/15/20 16:14:00 EDT, Height, 57, kg, 08/31/18 15:38:00 EDT, Dry Weight Start Date: 03/01/20 Status: Ordered oxyCODONE 5 mg oral tablet 5 mg, 1, tablet, By Mouth, Every 6 hours, PRN, # 12 tablet, Refills 0, Tot. Refills 0, Acute 08/14/20 10:59:00 EDT, as needed for pain, 08/06/20 10:59:00 EDT, Route to Pharmacy Electronically[id number], Partial fill upon patient request if... Start Date: 08/06/20 Stop Date: 08/14/20 Status: Ordered Synthroid 0.025 mg oral tablet [...] tablet, 3 Refills, Maintenance,01/22/20 14:27:00 EDT, Tablet, [facility][id number], 153, cm, 01/15/20 16:14:00 EDT, Height,57, kg, [...]
--- OUTSIDE RECORDS SUMMARY | 2023-12-06 11:18 | XMS_ITS | Continuity of Care Document ---
Author Organization [facility] Last ns [facility] Address [address] [facility], 4t [place] [address]- Care Team Providers Care Spinner Iron Name Role Phone Cole Dorado MD Primary [id number] 11/26[facility] - 12/03/22 [facility] Cesarmaximus CormierMoser Baer [facility] [address] [facility], 4th Floor [place], [place] [address] Attending Physician: Zoe Yao MD Referring Physician: Not on Staff, Referring MD [...] tablet, Refills 0, Tot. Refills 0, Acute 12/07/22 13:18:00 EDT, as needed for pain, 12/03/22 13:18:00 EDT, Route to [id number], Partial fill upon patient request if... Start Date: 12/03/22 Stop Date: 12/07/22 Status: Ordered traZODone 100 mg oral tablet [...] Team Personnel Name: Erik Waddell DO Position: [facility] ACUTE CARE CERTIFIED NURSING ASSISTANT MD Member Role: Lifetime ACUTE CARE CERTIFIED NURSING ASSISTANT Physician Address: Address: [address] [place] [address]'s [facility] [place] [address]- Name: Cole Dorado MD Position: [facility] Physician - Primary Care Member Role: PCP Address: Address: [address] [place] [address]- Name: Sary Isaac RN Position: [facility] RN Member Role: Primary Care Nurse Name: Lalitha Soliz RN Position: [facility] Onco RN Member Role: Primary Care Nurse Care Team Related Persons Name: KINA SHABAZZ Address: home [address] [address] Name: GUEVARA SHABAZZ Address: home [address] [place] [address]
--- OUTSIDE RECORDS SUMMARY | 2023-12-06 11:18 | XMS_ITS | Continuity of Care Document ---
Author Organization [facility] Address [address] [facility], 4t [place] [address]- Care Team Providers Care Road Freight Firer Name Role Phone Cole Dorado MD Primary Care Physician En[facility] [place] Date(s): 04/10/21 - 05/10/21 [facility] [address] [facility], 4th [place], [place] [address] Allergies, Adverse Reactions, Alerts Substance Reaction [...] tablet, 3 Refills, Maintenance,01/22/20 14:27:00 EDT, Tablet, [facility] #[id number], 153, cm, 01/15/20 16:14:00 EDT, Height,57, kg, [...]
--- OUTSIDE RECORDS SUMMARY | 2023-12-06 11:18 | XMS_ITS | Continuity of Care Document ---
Author Organization [facility] Address [address] [place] [address]- Care Team Providers Care Tool Engine Lathe Set Up Operator Name Role Phone Cole Dorado MD Primary Care Physician [place] [facility]13[place]20 - 04/12/20 [facility] [address] [place], [place] [address] Attending Physician: Admchavo, Merry Admitting Physician: AdmtrMerry [...] 01/16/20 8:32:00 EDT, Route to Pharmacy Electronically, [facility] Start Date: 01/16/20 Status: Ordered Flonase [...] Refills, Maintenance, 03/01/20 12:07:00 EST, [id number], 153, cm, 01/15/20 16:14:00 EDT, [...] tablet, 3 Refills, Maintenance,01/22/20 14:27:00 EDT, Tablet, [facility] #[id number], 153, cm, 01/15/20 16:14:00 EDT, Height,57, kg, [...]
--- OUTSIDE RECORDS SUMMARY | 2023-12-06 11:18 | XMS_ITS | Continuity of Care Document ---
[facility] Address [address] [facility], 4t [place] [address]- Care Team Providers Care Stock Raiser Name Role Phone Cole Dorado MD Primary Care Physician [id number] Date(s[facility] 03/11/22 - 04/10/22 [facility] [place] [address], 4th Floor [place], [place] [address] Allergies, Adverse Reactions, Alerts [...] Personnel Name: Erik Waddell DO Position: [facility] PROFESSIONAL SERVICES CONSULTANT MD Member Role: Lifetime PROFESSIONAL SERVICES CONSULTANT Physician Address: Address: [address] [place] [address]'s [facility] [place] [address]- Name: Cole Dorado MD Position: [facility] Physician (General Medicine) Member Role: PCP Address: Address: [address] [place] [address]- Name: Sary Isaac RN Position: [facility] RN Member Role: Primary Care Nurse Name: Martínez DUNBAR, Lalitha Huff Position: [facility] Onco RN Member Role: Primary Care Nurse Care Team Related Persons Name: KINA SHABAZZ Address: home [address] [place] [address] Name: GUEVARA SHABAZZ Address: home [address] [place] [address]
--- OUTSIDE RECORDS SUMMARY | 2023-12-06 11:18 | XMS_ITS | Continuity of Care Document ---
Author Organization [facility] ter Address [address] [place] [address]- Care Team Providers Care Outside Sales Representative Insurance Name Role Phone Cole Dorado MD Primary Care Physician En[facility] Date(s): 06/17/19 - 06/17/[address] [address]- [facility] Encounter Diagnosis Pain, chest wall(Final) - 06/17/19 Discharge Disposition: A-D/C Home Attending Physician: Diego Presley MD Admitting Physician: Diego Presley MD Referring Physician: Not on Staff, Referring [...] Soft Stop, 04/03/19 14:35:00 EST, [facility]t, [id number], 153, cm, 04/03/19 14:21:00 EST, [...] Mouth, Daily Start Date: 08/31/18 Status: Ordered metronidazole topical 0.75% gel with applicator 1 applicator, Vaginally, Daily at bedtime, for 5 days, # 70 Gm, 0 Refills, Acute 06/19/19 11:40:00 EDT, 06/14/19 11:40:00 EDT, Gel, [id number], 1 applicator Vaginally Daily at bedtime,x5 days, 153, cm, 04/03/19 14:21:00 EST, Height, 57, kg, 0... Start Date: 06/14/19 Stop Date: 06/19/19 Status: Ordered Multivitamin Tablet 1 tablet, By [...] Exam Date Time Procedure Performing Provider Status 06/17/19 12:58 PM Chest 2 Views Frontal and Lat Nayeli Jasso (Verified) Notes: (Chest 2 Views Frontal and Lat) Reason For Exam: Shortness of Breath RESULT: Chest 2 Views Frontal and Lat Chest 2 Views Frontal and Lat INDICATION/CLINICAL QUESTION: Reason: Shortness of Breath; Clinical Question(s): CHF / CHF TECHNIQUE: Frontal and lateral views of the chest. COMPARISON: 02/06/2019. FINDINGS: LINES AND TUBES: None. LUNGS AND PLEURA: RIGHT CHEST: The right lung is clear and there is no right effusion. LEFT CHEST: The left lung is clear and there is no left effusion. HEART, MEDIASTINUM AND EUNICE: The heart is of normal size. The mediastinum and eunice are normal. BONES AND SOFT TISSUES: No acute bony abnormality. IMPRESSION: 1. No active disease in chest. WSN: [id number] Ordering Physician: Remy Bran Dictated By: Patrice Jara MD Dictated Date/Time: 06/17/19 1:00 pm Reviewed By: Patrice Jara MD Signed By: Patrice Jara MD Signed Date/Time: 06/17/19 1:00 pm Transcribed By: J LUIS Transcribed Date/Time: 06/17/19 1:00 pm Vital Signs Most recent to oldest [Reference Range]: 1 Oxygen Saturation [94-100 %] 100 % (06/17/19 12:07 PM) Pulse Rate [55-90 bpm] 64 bpm (06/17/19 12:07 PM) Blood Pressure [90-138/55-84 mm Hg] 136/ 88mm Hg (06/17/19 12:07 PM) Respiratory Rate [16-30 br/min] 16 br/mi n (06/17/19 12:07 PM) Temperature [96.8-100.4 DegF] 98.2 DegF (06/17/19 12:07 PM) Mode of Delivery (Oxygen) Room air (06/17/19 12:07 PM) Blood pressure sites Arm, left (06/17/19 12:07 PM) Temperature Route Oral (06/17/19 12:07 PM) Social History Social History Type Response Smoking Status Never smoker; Tobacc o user in household: No entered on: 01/28/16 Sex
--- OUTSIDE RECORDS SUMMARY | 2023-12-06 11:18 | XMS_ITS | Continuity of Care Document ---
Author Organization [facility] Address [address], 4t [place] [address]- Care Team Providers Care Front Man Name Role Phone Cole Dorado MD Primary Care Physician [facility] Date(s): 01/14/22 - 02/13/22 [facility] [place] [facility] [address] [facility], 4th Floor [place], [place] [address] Attending Physician: Admtr, Ar8 Allergies, Adverse [...] No entered on: 01/28/16 Sex Note * Vandana FLORES , Rashi Chapa: REVIEW Event Display: Non Radiology Results Authored Date: [id number] Patient Care team information Care Team Personnel Name: Erik Waddell DO Position: [facility] INSURANCE VERIFICATION REP MD Member Role: Lifetime INSURANCE VERIFICATION REP Physician Address: Address: [address] [place] [address] [employer] [place] [address]- Name: Cole Dorado MD Position: [facility] Physician (General Medicine) Member Role: PCP Address: Address: [address] [place] [address]- Name: Sary Isaac RN Position: [facility] RN Member Role: Primary Care Nurse Name: Lalitha Soliz RN Position: [facility] Onco RN Member Role: Primary Care Nurse Care Team Related Persons Name: KINA SHABAZZ Address: home [address] [address] Name: GUEVARA SHABAZZ Address: home [address] [place] [address]
--- OUTSIDE RECORDS SUMMARY | 2023-12-06 11:19 | XMS_ITS | Continuity of Care Document ---
Author Organization [facility] Address [address] [facility], 4t [place] [address]- Care Team Providers Care Helicopter Engineer Name Role Phone Cole Dorado MD Primary Care Physician Encounter [facility] Date(s): 04/01/20 - 05/01/20 [facility] [address] [facility], 4th [place], [place] [address] Allergies, Adverse Reactions, [...] 01/16/20 8:32:00 EDT, Route to Pharmacy Electronically, [facility] Start Date: 01/16/20 Status: Ordered Flonase [...] Refills, Maintenance, 03/01/20 12:07:00 EST, [id number], 153, cm, 01/15/20 16:14:00 EDT, [...] tablet, 3 Refills, Maintenance,01/22/20 14:27:00 EDT, Tablet, [facility] #[id number], 153, cm, 01/15/20 16:14:00 EDT, Height,57, kg, [...]
--- OUTSIDE RECORDS SUMMARY | 2023-12-06 11:19 | XMS_ITS | Continuity of Care Document ---
Author Organization [facility] Address [address] [place] [address]- Care Team Providers Care Watch Repair Person Name Role Phone Cole Dorado MD Primary Care Physician Encounter [facility] Date(s): 06/14/23 - 07/14/23 [facility] [address] [place] [address]- Attending Physician: AdmMerry tony Admitting Physician: AdmtrMerry [...] Waddell DO Position: [facility] EMAIL CAMPAIGN MANAGER MD Member Role: Lifetime EMAIL CAMPAIGN MANAGER Physician Address: Address: [address] [place] [address]- Name: Cole Dorado MD Position: [facility] Physician - Primary Care Member Role: PCP Address: Address: [address] [place] [address]- Name: Sary Isaac RN Position: [facility] RN Member Role: Primary Care Nurse Name: Martínez DUNBAR, Lalitha Huff Position: [facility] Onco RN Member Role: Primary Care Nurse Care Team Related Persons Name: KINA SHABAZZ Address: home [address] [facility] [address] [place] [address] Name: GUEVARA SHABAZZ Address: home [address] [place] [address]
--- OUTSIDE RECORDS SUMMARY | 2023-12-06 11:19 | XMS_ITS | Continuity of Care Document ---
Author Organization [facility] ter Address [address] [place] [address]- Care Team Providers Care Filer And Sander Name Role Phone Cole Dorado MD Primary Care Physician [place] [facility] Date(s): 12/24/21 - 12/24/[address] [address] Discharge Disposition: A-D/C Home Attending Physician: Josh Leslei MD Admitting Physician: Josh Leslie MD Referring [...] PRN Headache Start Date: 08/31/18 Status: Ordered Augmentin 875 mg-125 mg oral tablet 1 tablet, By Mouth, Every 12 hours, for 3 days, # 6 tablet, 0 Refills, Acute 12/27/21 13:49:00 EDT,12/24/21 13:49:00 EDT, Tablet, [facility][id number], Partial fill upon patient request if the prescription is for a schedule II opioid drug., 15... Start Date: 12/24/21 Stop Date: 12/27/21 Status: Ordered Cymbalta 60 mg oral enteric [...] 14:25:32 EST Start Date: 02/20/16 Status: Ordered Akrla 1 tablet, By Mouth, Daily in AM, 0 Refills, Maintenance, 04/24/15 14:09:11 EST Start Date: 04/24/15 Status: Ordered ibuprofen 600 mg oral tablet 600 mg, 1, tablet, By Mouth, Every 6 hours, for 14 days, # 56 tablet, Refills 0, Tot. Refills 0, Acute 01/07/22 13:50:00 EDT, 12/24/21 13:50:00 EDT, Route to Pharmacy Electronically, [facility] #[id number], Partial fill upon patient request if th... Start Date: 12/24/21 Stop Date: 01/07/22 Status: Ordered Inderal LA 160 mg oral [...] By Mouth, Every 6 hours, PRN, # 5 tablet, Refills 0, Tot. Refills 0, Acute 12/25/21 13:51:00 EDT, for pain, 12/24/21 13:51:00 EDT, Route to Pharmacy Electronically, [facility] #[id number], Partial fill upon patient request if the... Start Date: 12/24/21 Stop Date: 12/25/21 Status: Ordered OxyCODONE IR Tablet 5 mg, Tablet, By Mouth, Every 4 hours, in PACU ONLY, if patient can tolerate PO, PRN for Pain , Mild, Routine, 12/24/21 13:53:00 EDT Start Date: 12/24/21 Stop Date: 12/31/21 Status: Ordered traZODone 100 mg oral tablet 2 tablets, By Mouth, Daily at bedtime, # 180 tablet, Refills 0, Maintenance, 06/08/21 9:22:00 EDT, Partial fill upon patient request if the prescription is for a schedule II opioid drug. Start Date: 06/08/21 Status: Ordered Tylenol Extra Strength 500 mg oral tablet 1 tablet = 500 mg, By Mouth, Every 6 hours, PRN as needed for pain, for 14 days, # 50 tablet, 0 Refills, Acute 01/07/22 13:50:00 EDT, 12/24/21 13:50:00 EDT, Tablet, [facility] #[id number], Partial fill upon patient request if the prescription is... Start Date: 12/24/21 Stop Date: 01/07/22 Status: Ordered Problem List Condition Confirmation Course [...] oldest [Reference Range]: 1 2 3 Weight 65.1 kg (12/24/21 12:18 PM) Oxygen Saturation [94-100 %] 100 % (12/24/21 3:00 PM) 97 % (12/24/21 2:45 PM) 100 % (12/24/21 2:30 PM) Pulse Rate [55-90 bpm] 85 bpm (12/24/21 12:18 PM) Blood Pressure [90-138/55-84 mm Hg] 137/94mm Hg (12/24/21 3:00 PM) 139/94mm Hg *H* (12/24/21 2:45 PM) 138/96mm Hg (12/24/21 2:30 PM) Respiratory Rate [16-30 br/min] 12 br/min *L* (12/24/21 3:00 PM) 17 br/min (12/24/21 2:45 PM) 16 br/min (12/24/21 2:41 PM) Temperature [96.8-100.4 DegF] 98.3 DegF (12/24/21 3:00 PM) 97.4 DegF (12/24/21 2:00 PM) 98.7 DegF (12/24/21 12:18 PM) Liters per Minute 6 L/min (12/24/21 2:30 PM) 6 L/min (12/24/21 2:15 PM) 6 L/min (12/24/21 2:00 PM) Mode of Delivery (Oxygen) Room air (12/24/21 3:00 PM) Room air (12/24/21 2:45 PM) Shovel mask (12/24/21 2:30 PM) Blood pressure sites Arm, right (12/24/21 2:00 PM) Arm, right (12/24/21 12:18 PM) Temperature Route Temporal (12/24/21 3:00 PM) Temporal (12/24/21 2:00 PM) Temporal (12/24/21 12:18 PM) Dry Weight 65.1 kg (12/24/21 12:18 PM) Weight Obtained Via Standing scale (12/24/21 12:18 PM) Dry Weight Obtained Via Standing scale (12/24/21 12:18 PM) Social History Social History Type Response Smoking Status Never smoker; Tobacc o user in household: No entered on: 01/28/16 Sex Patient Care team information Personnel Name: Estrada FLORES, Cole Garcia Address: Address: [address] [place] [address]
--- OUTSIDE RECORDS SUMMARY | 2023-12-06 11:19 | XMS_ITS | Continuity of Care Document ---
Author Organization [facility] Address [address] [facility] [place] [address]- Care Team Providers Care Fur Coat Sewer Name Role Phone Cole Dorado MD Primary Care Physician Encounter 06/14/22 - 07/17/22 [facility] [address], [address] [place] [address]- Attending Physician: Rashi Ross MD Admitting Physician: [...] o user in household: No entered on: 11/2/16 Sex Patient Care team information Care Team Personnel Name: Erik Waddell DO Position: [facility] NURSE SPECIAL MD Member Role: Lifetime NURSE SPECIAL Physician Address: Address: [address] [place], [place] [address]s [facility] Bioinformaticist [place] [address]- Name: Cole Dorado MD Position: [facility] Physician (General Medicine) Member Role: PCP Address: Address: [address] [place] [address]- Name: Sary Isaac RN Position: [facility] RN Member Role: Primary Care Nurse Name: Lalitha Soliz RN Position: [facility] Onco RN Member Role: Primary Care Nurse Care Team Related Persons Name: KINA SHABAZZ Address: home [address] [address] Name: GUEVARA SHABAZZ Address: home [address] [place] [address]
--- OUTSIDE RECORDS SUMMARY | 2023-12-06 11:19 | XMS_ITS | Continuity of Care Document ---
Author Organization [facility] Last n[facility] Address [address] [facility], 4t [place] [address]- Care Team Providers Care Film Printer Name Role Phone Cole Dorado MD Primary Care Physician En[facility] Date(s): 05/14/21 - 06/13/21 [facility] [address] [facility] [facility], 4th [place] [address]- Allergies, Adverse Reactions, Alerts Substance Reaction Severity [...] 06/18/21 11:18:00 EDT, 06/11/21 11:18:00 EDT, Tablet, [facility][id number], Partial fill upon patient request if the [...] 06/14/21 11:20:00 EDT, 06/11/21 11:20:00 EDT, Capsule, [id number], Partial fill upon patient request if the [...] 06/11/21 11:18:00 EDT, Route to Pharmacy Electronically, [facility] #[id number], Partial... Start Date: 06/11/21 Stop Date: 06/16/21 [...] 06/11/21 11:19:00 EDT, Route to Pharmacy Electronically, [facility] #[id number], Partial fill upon patient r... Start Date: [...]
--- OUTSIDE RECORDS SUMMARY | 2023-12-06 11:19 | XMS_ITS | Continuity of Care Document ---
Author Organization [facility] Address [address] [facility], 4t [place] [address]- Care Team Providers Care Load Tester Name Role Phone Cole Dorado MD Primary [id number]23 - 09/16/23 [facility] [address] [facility], 4th Floor [place], [place] [address] Attending Physician: Marcela Greenberg MD Admitting Physician: [...] Name: Erik Waddell DO Position: [facility] HUMANITIES AND LANGUAGES PROFESSOR MD Member Role: Lifetime HUMANITIES AND LANGUAGES PROFESSOR Physician Address: Address: [address] [place] [address]- Name: Cole Dorado MD Position: [facility] Physician - Primary Care Member Role: PCP Address: Address: [address] [place] [address]- Name: Sary Isaac RN Position: [facility] RN Member Role: Primary Care Nurse Name: Martínez DUNBAR, Lalitha Huff Position: [facility] Onco RN Member Role: Primary Care Nurse Care Team Related Persons Name: KINA SHABAZZ Address: home [address] [address] Name: GUEVARA SHABAZZ Address: home [address] [place] [address]
--- OUTSIDE RECORDS SUMMARY | 2023-12-06 11:19 | XMS_ITS | Continuity of Care Document ---
Author Organization [facility] Arm[facility] Address [address] [place] [address] [address] [place] [address]- Care Team Providers Care Telecommunications Manager Name Role Phone Estrada FLORES, Cole Garcia Primary Care Physician En[place] [facility] Date(s): 01/01/22 - 01/08/22 [facility] [address] [place] [address]- Attending Physician: Artemio JOHNSTON, Mely Markham Allergies, [...] oldest [Reference Range]: 1 Height 153 cm (01/01/22 10:46 AM) Social History Social History Type Response Smoking Status Never smoker; Tobacc o user in household: No entered on: 01/28/16 Sex Patient Care team information Personnel Name: Cole Dorado MD Address: Address: [address] [place] [address]
--- OUTSIDE RECORDS SUMMARY | 2023-12-06 11:19 | XMS_ITS | Continuity of Care Document ---
Author Organization [facility] Last n's [facility] Address [address] [facility], 4t [place] [address]- Care Team Providers Care Data Processing Systems Consultant Name Role Phone Cole Dorado MD Primary Care Physician En[facility] Date(s): 05/10/23 - 06/09/23 [facility] [address] [facility], 4th Floor [place], [place] [address] Allergies, Adverse Reactions, Alerts Substance [...] DO Position: [facility] SENIOR QA ENGINEER MD Member Role: Lifetime SENIOR QA ENGINEER Physician Address: Address: [address] [place] [address]- Name: Cole Dorado MD Position: [facility] Physician - Primary Care Member Role: PCP Address: Address: [address] [place] [address]- Name: Sary Isaac RN Position: [facility] RN Member Role: Primary Care Nurse Name: Martínez DUNBAR, Lalitha Huff Position: [facility] Onco RN Member Role: Primary Care Nurse Care Team Related Persons Name: KINA SHABAZZ Address: home [address] [facility] [address] [place] [address] Name: GUEVARA SHABAZZ Address: home [address] [place] [address]
--- OUTSIDE RECORDS SUMMARY | 2023-12-06 11:19 | XMS_ITS | Continuity of Care Document ---
Author Organization [facility] Address [address] [place] [address]- Care Team Providers Care International Trade Specialist Name Role Phone Estrada FLORES, Cole Garcia Primary Care Physician En[place] [facility] Date(s): 07/21/20 - 08/20/[address] [address]- Allergies, Adverse Reactions, Alerts Substance Reaction Severity [...] Refills, Soft Stop, 07/29/20 11:38:00 EDT, Tablet, [facility][id number], Partial fill upon patient request if the [...] 01/16/20 8:32:00 EDT, Route to Pharmacy Electronically, [facility]... Start Date: 01/16/20 Status: Ordered Flonase 1 [...] Refills, Maintenance, 03/01/20 12:07:00 EST, [id number], 153, cm, 01/15/20 16:14:00 EDT, [...] Maintenance,01/22/20 14:27:00 EDT, Tablet, [facility] #[id number], 153, cm, 01/15/20 16:14:00 EDT, Height,57, kg, [...]
--- OUTSIDE RECORDS SUMMARY | 2023-12-06 11:19 | XMS_ITS | Continuity of Care Document ---
Author Organization [facility] Address [address] [facility], 4[address] [place] [address]- Care Team Providers Care Clam Picker Name Role Phone Cole Dorado MD Primary Care Physician En[facility] Date(s): 08/02/22 - 09/01/22 [facility] [address] [facility], [address]th [place], [place] [address] Allergies, Adverse Reactions, Alerts Substance [...] Team Personnel Name: Erik Waddell DO Position: [facility] COSMETICS DEMONSTRATOR MD Member Role: Lifetime COSMETICS DEMONSTRATOR Physician Address: Address: [address] [place] [address]'s [facility] Front Clerk [place] [address]- [place] Name: Cole Dorado MD Position: [facility] Physician - Primary Care Member Role: PCP Address: Address: [address] [place] [address]- Name: Sary Isaac RN Position: [facility] RN Member Role: Primary Care Nurse Name: Martínez DUNBAR, Lalitha Huff Position: [facility] Onco RN Member Role: Primary Care Nurse Care Team Related Persons Name: KINA SHABAZZ Address: home [address] [place] [address] Name: GUEVARA SHABAZZ Address: home [address] [place] [address]
--- OUTSIDE RECORDS SUMMARY | 2023-12-06 11:19 | XMS_ITS | Continuity of Care Document ---
Author Organization [facility] Address [address] [facility], 4t [place] [address]- Care Team Providers Care Senior Brand Manager Name Role Phone Cole Dorado MD Primary Care Physician Encounter [facility] Date(s): 04/07/22 - 05/07/22 [facility] [place] [facility] [address] [facility], 4th Floor [place], [place] [address] Allergies, Adverse Reactions, Alerts Substance Reaction [...] Personnel Name: Erik Waddell DO Position: [facility] SENIOR BACKUP ADMINISTRATOR MD Member Role: Lifetime SENIOR BACKUP ADMINISTRATOR Physician Address: Address: [address] [place] [address]'s [facility] Assistant Professor [place] [address]- Name: Cole Dorado MD Position: [facility] Physician (General Medicine) Member Role: PCP Address: Address: [address] [place] [address]- Name: Sary Isaac RN Position: [facility] RN Member Role: Primary Care Nurse Name: Martínez DUNBAR, Lalitha Huff Position: [facility] Onco RN Member Role: Primary Care Nurse Care Team Related Persons Name: KINA SHABAZZ Address: home [address] [facility] [address] [place] [address] Name: GUEVARA SHABAZZ Address: home [address] [place] [address]
--- OUTSIDE RECORDS SUMMARY | 2023-12-06 11:19 | XMS_ITS | Continuity of Care Document ---
Author Organization [facility]astic Armond chano Address [address] [place] [address] [address] [place] [address]- Care Team Providers Care Slide Machine Tender Name Role Phone Estrada FLORES, Cole Garcia Primary Care Physician [place] [facility] [place] Date(s): 01/29/22 - 02/05/22 [facility]astic [address] [place] [address]- Attending Physician: Artemio JOHNSTON, Mely Markham Allergies, [...] oldest [Reference Range]: 1 Height 153 cm (01/29/22 11:43 AM) Weight 63.63 kg (01/29/22 11:43 AM) Body Mass Index [18.5-24.99 kg/m2] 27.18 kg/m2 *H* (01/29/22 11:43 AM) Weight Obtained Via Standing scale (01/29/22 11:43 AM) Social History Social History Type Response Smoking Status Never smoker; Tobacc o user in household: No entered on: 01/28/16 Sex Patient Care team information Care Team Personnel Name: Erik Waddell DO Position: [facility] GENERAL SERVICE OFFICER MD Member Role: Lifetime GENERAL SERVICE OFFICER Physician Address: Address: [address] [place], [place] [address]s [facility] Veterinary [place] [address]- Name: Estrada FLORES, Cole Garcia Position: [facility] Physician (General Medicine) Member Role: PCP Address: Address: [address] [place] [address]- Name: Sary Isaac RN Position: [facility] RN Member Role: Primary Care Nurse Name: Lalitha Soliz RN Position: [facility] Onco RN Member Role: Primary Care Nurse Care Team Related Persons Name: KINA SHABAZZ Address: home [address] [address] Name: GUEVARA SHABAZZ Address: home [address] [place] [address]
--- OUTSIDE RECORDS SUMMARY | 2023-12-06 11:19 | XMS_ITS | Continuity of Care Document ---
Author Organization [facility] Last n's [facility] Address [address] [facility], 4t [place] [address]- Care Team Providers Care Utility Worker Name Role Phone Cole Dorado MD Primary Care Physician Encounter [facility] [place] Date(s): 05/14/21 - 06/13/21 [facility] [employer] [employer] [facility] [address] [facility], 4th [place] [address]- Allergies, Adverse Reactions, Alerts Substance Reaction Severity [...] 06/18/21 11:18:00 EDT, 06/11/21 11:18:00 EDT, Tablet, [facility] #[id number], Partial fill upon patient request if the [...] 06/14/21 11:20:00 EDT, 06/11/21 11:20:00 EDT, Capsule, [facility][id number], Partial fill upon patient request if the [...] 06/11/21 11:18:00 EDT, Route to Pharmacy Electronically, [facility] #[id number], Partial... Start Date: 06/11/21 Stop Date: 06/16/21 [...] 06/11/21 11:19:00 EDT, Route to Pharmacy Electronically, [facility] #[id number], Partial fill upon patient r... Start Date: [...]
--- OUTSIDE RECORDS SUMMARY | 2023-12-06 11:19 | XMS_ITS | Continuity of Care Document ---
Author Organization [facility] Address [address] [facility], 4t [place] [address]- Care Team Providers Care Wood Scrap Handler Name Role Phone Cole Dorado MD Primary Care Physician Encounter [facility] [place] Date(s): 02/12/21 - 03/14/21 [facility] [address] [facility], 4th Floor [place], [place] [address] Attending Physician: Admtr, Ar8 Allergies, Adverse [...] 5 Refills... Start Date: 02/27/21 Stop Date: 11/29/24 Status: Ordered Multivitamin Tablet 1 tablet, By [...] tablet, 3 Refills, Maintenance,01/22/20 14:27:00 EDT, Tablet, [facility] #[id number], 153, cm, 01/15/20 16:14:00 EDT, Height,57, kg, [...]
--- OUTSIDE RECORDS SUMMARY | 2023-12-06 11:19 | XMS_ITS | Continuity of Care Document ---
Author Organization [facility] Address [address], 4t [place] [address]- Care Team Providers Care Steno Pool Supervisor Name Role Phone Cole Dorado MD Primary Care Physician En[facility] [place] Date(s): 01/13/23 - 02/12/23 [facility] Ces[facility]ximus CormierAcacia [employer] [address], 4th Floor [place], [place] [address] Allergies, Adverse Reactions, [...] Erik Waddell DO Position: [facility] PLANT PHYSIOLOGY TEACHER MD Member Role: Lifetime PLANT PHYSIOLOGY TEACHER Physician Address: Address: [address] [place], [place] [address]s [facility] Multifold Operator [place] [address]- [place] Name: Cole Dorado MD Position: [facility] Physician - Primary Care Member Role: PCP Address: Address: [address] [place] [address]- Name: Sary Isaac RN Position: [facility] RN Member Role: Primary Care Nurse Name: Lalitha Soliz RN Position: [facility] Onco RN Member Role: Primary Care Nurse Care Team Related Persons Name: KINA SHABAZZ Address: home [address] [address] Name: GUEVARA SHABAZZ Address: home [address] [place] [address]
--- OUTSIDE RECORDS SUMMARY | 2023-12-06 11:19 | XMS_ITS | Continuity of Care Document ---
Author Organization [facility]astic Armond chano Address [address] [place] [address] [address] [place] [address]- Care Team Providers Care Dividing Machine Operator Helper Name Role Phone Cole Dorado MD Primary Care Physician Encounter [facility] [place] Date(s): 04/28/20 - 05/05/20 [facility]astic [address] [place] [address]- Attending Physician: Josh Leslie MD Referring Physician: Not on Staff, Referring [...] 01/16/20 8:32:00 EDT, Route to Pharmacy Electronically, [facility]... Start Date: 01/16/20 Status: Ordered Flonase [...] Refills, Maintenance, 03/01/20 12:07:00 EST, Tablet[id number], 153, cm, 01/15/20 16:14:00 EDT, [...] tablet, 3 Refills, Maintenance,01/22/20 14:27:00 EDT, Tablet, [facility] #[id number], 153, cm, 01/15/20 16:14:00 EDT, Height,57, kg, [...] oldest [Reference Range]: 1 Height 153 cm (04/28/20 1:02 PM) Weight 59.1 kg (04/28/20 1:02 PM) Pulse Rate [55-90 bpm] 72 bpm (04/28/20 1:02 PM) Body Mass Index [18.5-24.99] 25.25 *H* (04/28/20 1:02 PM) Blood Pressure [90-138/55-84 mm Hg] 142/ 90mm Hg *H* (04/28/20 1:02 PM) Temperature [96.8-100.4 DegF] 96.6 DegF *L* (04/28/20 1:02 PM) Blood pressure sites Arm, left (04/28/20 1:02 PM) Temperature Route Temporal (04/28/20 1:02 PM) Social History Social History Type Response Smoking Status Never smoker; Tobacc o user in household: No entered on: 01/28/16 Sex
--- OUTSIDE RECORDS SUMMARY | 2023-12-06 11:20 | XMS_ITS | Continuity of Care Document ---
Author Organization [facility] Last n's [facility] Address [address], 4t [place] [address]- Care Team Providers Care Breaker Operator Name Role Phone Cole Dorado MD Primary Care Physician En[place] [facility] [place] Date(s): 10/28/22 - 11/27/22 [facility] Cesarmaximus CormierPogojos [facility] [address] [facility], 4th Floor [place], [place] [address] Allergies, Adverse Reactions, Alerts Substance [...] Waddell DO Position: [facility] PRE ALGEBRA TEACHER MD Member Role: Lifetime PRE ALGEBRA TEACHER Physician Address: Address: [address] [place], [place] [address]s [facility] Neonatal Nurse Practitioner [place] [address]- [place] Name: Cole Dorado MD Position: [facility] Physician - Primary Care Member Role: PCP Address: Address: [address] [place] [address]- Name: Sary Isaac RN Position: [facility] RN Member Role: Primary Care Nurse Name: Martínez DUNBAR, Lalitha Huff Position: [facility] Onco RN Member Role: Primary Care Nurse Care Team Related Persons Name: KINA SHABAZZ Address: home [address] [address] Name: GUEVARA SHABAZZ Address: home [address] [place] [address]
--- OUTSIDE RECORDS SUMMARY | 2023-12-06 11:20 | XMS_ITS | Continuity of Care Document ---
Author Organization [facility] Plastic Armond chano Address [address] [place] [address] [facility] [address] [place] [address]- Care Team Providers Care Small Business Sales Representative Name Role Phone Cole Dorado MD Primary Care Physician [place] [facility] [place]): 01[place]29/22 - 02/28/22 [facility]astic [address] [place] [address]- Attending Physician: AdmMerry tony Admitting Physician: AdmtrMerry Referring Physician: Admtr, Merry Allergies, Adverse Reactions, Alerts Substance Reaction Severity Status doxycycline c-diff Active Demerol hallucinates Active droperidol Tongue swelling Active Amerge Tongue [...] Personnel Name: Erik Waddell DO Position: [facility] ACCESSORIES REPAIRER MD Member Role: Lifetime ACCESSORIES REPAIRER Physician Address: Address: [address] [place], [place] [address]s [facility] Interactive Project Manager [place] [address]- Name: Cole Dorado MD Position: [facility] Physician (General Medicine) Member Role: PCP Address: Address: [address] [place] [address]- Name: Sary Isaac RN Position: [facility] RN Member Role: Primary Care Nurse Name: Martínez DUNBAR, Lalitha Huff Position: [facility] Onco RN Member Role: Primary Care Nurse Care Team Related Persons Name: KINA SHABAZZ Address: home [id number] [place] [address] Name: GUEVARA SHABAZZ Address: home [address] [place] [address]
--- OUTSIDE RECORDS SUMMARY | 2023-12-06 11:20 | XMS_ITS | Continuity of Care Document ---
Author Organization [facility] Cesar Ni n's [facility] Address [address] [facility], 4t [place] [address]- Care Team Providers Care Community Ambassador Name Role Phone Cole Dorado MD Primary Care Physician [id number] Date[facility] 03/12/22 - 04/11/22 [facility] [place] [employer] [facility] [address] [facility], 4th Floor [place], [place] [address] Allergies, Adverse Reactions, Alerts Substance [...] Personnel Name: Erik Waddell DO Position: [facility] BROADCAST ENGINEER MD Member Role: Lifetime BROADCAST ENGINEER Physician Address: Address: [address] [place] [address]'s [facility] Corporate Logistics [place] [address]- Name: Cole Dorado MD Position: [facility] Physician (General Medicine) Member Role: PCP Address: Address: [address] [place] [address]- Name: Sary Isaac RN Position: [facility] RN Member Role: Primary Care Nurse Name: Martínez DUNBAR, Lalitha Huff Position: [facility] Onco RN Member Role: Primary Care Nurse Care Team Related Persons Name: KINA SHABAZZ Address: home [address] [facility] [address] [place] [address] Name: GUEVARA SHABAZZ Address: home [address] [place] [address]
--- OUTSIDE RECORDS SUMMARY | 2023-12-06 11:20 | XMS_ITS | Continuity of Care Document ---
Author Organization [facility] Address [address] [facility], 4t [place] [address]- Care Team Providers Care Plaster Whittler Name Role Phone Cole Dorado MD Primary Care Physician [place] [facility] [place] 01/28/23 - 02/27/23 [facility] CormierTachy[facility] [address] [facility], 4th Floor [place], [place] [address] Allergies, Adverse Reactions, Alerts Substance Reaction [...] Erik Waddell DO Position: [facility] WATERSHED ENGINEER MD Member Role: Lifetime WATERSHED ENGINEER Physician Address: Address: [address] [place], [place] [address]s [facility] Backrest [place]sembler [place] [address]- [place] Name: Cole Dorado MD Position: [facility] Physician - Primary Care Member Role: PCP Address: Address: [address] [place] [address]- Name: Sary Isaac RN Position: [facility] RN Member Role: Primary Care Nurse Name: Lalitha Soliz RN Position: [facility] Onco RN Member Role: Primary Care Nurse Care Team Related Persons Name: KINA SHABAZZ Address: home [address] [address] Name: GUEVARA SHABAZZ Address: home [address] [place] [address]
--- OUTSIDE RECORDS SUMMARY | 2023-12-06 11:20 | XMS_ITS | Continuity of Care Document ---
Author Organization [facility] Last n's [facility] Address [address] [facility], 4t [place] [address]- Care Team Providers Care Assembler Brazer Name Role Phone Cole Dorado MD Primary Care Physician En[place] [facility] [place] Date(s): 01/09/21 - 02/08/21 [facility] CormierVirtualScopicss [facility] [address] [facility], 4th [place] [address]- Allergies, Adverse Reactions, Alerts Substance Reaction Severity [...] Refills, Maintenance, 03/01/20 12:07:00 EST, Tablet, [id number], 153, cm, 01/15/20 16:14:00 EDT, [...] tablet, 3 Refills, Maintenance,01/22/20 14:27:00 EDT, Tablet, [facility] #[id number], 153, cm, 01/15/20 16:14:00 EDT, Height,57, kg, [...]
--- OUTSIDE RECORDS SUMMARY | 2023-12-06 11:20 | XMS_ITS | Continuity of Care Document ---
Author Organization [facility] Ni [facility] Address [address] [facility], 4t [place] [address]- Care Team Providers Care Magneto Electrician Name Role Phone Cole Dorado MD Primary Care Physician En[facility] [place] Date(s): 08/06/20 - 09/05/20 [facility] CormierMelStevia Incs [facility] [address] [facility], 4th [place] [address]- Allergies, Adverse Reactions, Alerts Substance Reaction Severity [...] Refills, Soft Stop, 07/29/20 11:38:00 EDT, Tablet, [facility] #[id number], Partial fill upon patient request if the [...] 01/16/20 8:32:00 EDT, Route to Pharmacy Electronically, [facility]... Start Date: 01/16/20 Status: Ordered Flonase 1 [...] Refills, Maintenance, 03/01/20 12:07:00 EST, Tablet, [id number], 153, cm, 01/15/20 16:14:00 EDT, [...] tablet, 3 Refills, Maintenance,01/22/20 14:27:00 EDT, [facility]t, [facility][id number], 153, cm, 01/15/20 16:14:00 EDT, Height,57, kg, [...]
--- OUTSIDE RECORDS SUMMARY | 2023-12-06 11:20 | XMS_ITS | Continuity of Care Document ---
Author Organization [facility] Last nListnerds [facility] Address [address] [facility], 4t [place] [address]- Care Team Providers Care Manufacturing Millwright Name Role Phone Cole Dorado MD Primary Care Physician [place] [facility] [place]s): 09/26/23 - 10/26/23 [facility] Angel[facility] CormierListnerds [facility] [address] [facility], 4th [place], [place] [address] Allergies, Adverse Reactions, Alerts Substance Reaction [...] TUESDAY, # 8 patch, 12 Refills, Maintenance, 10/10/23 16:41:00 EDT, [facility], 0, APPLY 1 PATCH TOPICALLY EVERY TUESDAY AND TUESDAY, 152, cm, 03/04/23 8:12:00 EST, Height,... Start Date: 10/10/23 Status: Ordered Flonase 1 sprays, Nares, Both, [...] tablet, Refills 0, Tot. Refills 0, Acute 10/27/23 12:00:00 EDT, Pain , Moderate, 09/27/23 9:54:00 EDT, Route to Pharmacy Electronically, [facility]acy #[id number], Partial fill upon patient request if the p... Start Date: 09/27/23 Stop Date: 10/27/23 Status: Ordered Toradol Inj 0 Refills, Maintenance, [...] Erik Waddell DO Position: [facility] EXTRUDER MD Member Role: Lifetime EXTRUDER Physician Address: Address: [address] [place] [address]- Name: Cole Dorado MD Position: [facility] Physician - Primary Care Member Role: PCP Address: Address: [address] [place] [address]- Name: Sary Isaac RN Position: [facility] RN Member Role: Primary Care Nurse Name: Lalitha Soliz RN Position: [facility] Onco RN Member Role: Primary Care Nurse Care Team Related Persons Name: KINA SHABAZZ Address: home [address] [address] Name: GUEVARA SHABAZZ Address: home [address] [place] [address]
--- OUTSIDE RECORDS SUMMARY | 2023-12-06 11:20 | XMS_ITS | Continuity of Care Document ---
Author Organization [facility] Cambridgemaximus Ni n's [facility] Address [address] [facility], 4t [place] [address]- Care Team Providers Care Wood Sawyer Name Role Phone Cole Dorado MD Primary Care Physician [id number]s): 05/08/21 - 06/07/21 [facility] [place] [employer] [facility] [address] [facility], 4th Floor [place], [place] [address] Allergies, Adverse Reactions, Alerts Substance [...] Maintenance,01/22/20 14:27:00 EDT, Tablet, [facility] #[id number], 153, cm, 01/15/20 16:14:00 EDT, Height,57, kg, [...]
--- OUTSIDE RECORDS SUMMARY | 2023-12-06 11:20 | XMS_ITS | Continuity of Care Document ---
Author Organization [facility] Last nZappers [facility] Address [address] [facility], 4[place] [address]- Care Team Providers Care Manager Rn Case Name Role Phone Cole Dorado MD Primary Care Physician En[place] [facility] [place] Date(s): 03/29/23 - 04/28/23 [facility] CormierZappers [facility] [address] [facility], 4th [place], [place] [address] Allergies, Adverse Reactions, Alerts Substance Reaction [...] Team Personnel Name: Erik Waddell DO Position: [facility] EQUIPMENT COORDINATOR MD Member Role: Lifetime EQUIPMENT COORDINATOR Physician Address: Address: [address] [place] [address]- Name: Cole Dorado MD Position: [facility] Physician - Primary Care Member Role: PCP Address: Address: [address] [place] [address]- Name: Sary Isaac RN Position: [facility] RN Member Role: Primary Care Nurse Name: Martínez DUNBAR, Lalitha Huff Position: [facility] Onco RN Member Role: Primary Care Nurse Care Team Related Persons Name: KINA SHABAZZ Address: home [address] [facility] [address] [place] [address] Name: GUEVARA SHABAZZ Address: home [address] [place] [address]
--- OUTSIDE RECORDS SUMMARY | 2023-12-06 11:20 | XMS_ITS | Continuity of Care Document ---
Author Organization [facility]esar Ni n[facility] Group Address [address] [facility], 4t [place] [address]- Care Team Providers Care Raisin Washer Name Role Phone Cole Dorado MD Primary Care Physician En[place] [facility] [place] Date(s): 02/29/20 - 03/30/20 [facility]rog [facility] [address] [facility], 4th Floor [place], [place] [address] Allergies, Adverse Reactions, Alerts Substance [...] 01/16/20 8:32:00 EDT, Route to Pharmacy Electronically, [facility] Start Date: 01/16/20 Status: Ordered Flonase [...] Refills, Maintenance, 03/01/20 12:07:00 EST, Tablet, [id number], 153, cm, 01/15/20 16:14:00 EDT, [...] tablet, 3 Refills, Maintenance,01/22/20 14:27:00 EDT, Tablet, [facility] #[id number], 153, cm, 01/15/20 16:14:00 EDT, Height,57, kg, [...]
--- OUTSIDE RECORDS SUMMARY | 2023-12-06 11:20 | XMS_ITS | Continuity of Care Document ---
Author Organization [facility] Ni nSilith.IOs [facility] Address [address] [facility], 4t [place] [address]- Care Team Providers Care Service Order Dispatcher Chief Name Role Phone Cole Dorado MD Primary Care Physician En[place] [facility] [place] Date(s): 06/24/22 - 07/24/22 [facility] [employer] CasaSilith[facility] [address] [facility], 4th Floor [place], [place] [address] Allergies, Adverse [...] Personnel Name: Erik Waddell DO Position: [facility] SERVER MANAGER MD Member Role: Lifetime SERVER MANAGER Physician Address: Address: [address] [place] [address]'s [facility] Police [place] [address]- Name: Cole Dorado MD Position: [facility] Physician (General Medicine) Member Role: PCP Address: Address: [address] [place] [address]- Name: Sary Isaac RN Position: [facility] RN Member Role: Primary Care Nurse Name: Martínez DUNBAR, Lalitha Huff Position: [facility] Onco RN Member Role: Primary Care Nurse Care Team Related Persons Name: KINA SHABAZZ Address: home [address] [facility] [address] [place] [address] Name: GUEVARA SHABAZZ Address: home [address] [place] [address]
--- OUTSIDE RECORDS SUMMARY | 2023-12-06 11:20 | XMS_ITS | Continuity of Care Document ---
Author Organization [facility] Armond chano Address [address] [place] [address] [address] [place] [address]- Care Team Providers Care Laboratory Inspector Name Role Phone Cole Dorado MD Primary Care Physician En[place] [facility] [place] Date(s): 10/26/21 - 11/02/21 [facility] [address] [place] [address]- Attending Physician: Josh Leslie MD Referring Physician: [...] Refills, Maintenance, 11/11/15 10:39:04 EDT Start Date: 8/16/16 Status: Ordered gabapentin 300 mg oral capsule [...] oldest [Reference Range]: 1 Height 153 cm (10/26/21 1:43 PM) Weight 63.63 kg (10/26/21 1:43 PM) Body Mass Index [18.5-24.99] 27.18 *H* (10/26/21 1:43 PM) Temperature [96.8-100.4 DegF] 98.7 DegF (10/26/21 1:43 PM) Temperature Route Temporal (10/26/21 1:43 PM) Weight Obtained Via Standing scale (10/26/21 1:43 PM) Social History Social History Type Response Smoking Status Never smoker; Tobacc o user in household: No entered on: 01/28/16 Sex
--- OUTSIDE RECORDS SUMMARY | 2023-12-06 11:20 | XMS_ITS | Continuity of Care Document ---
Author Organization [facility] Cesar Ni ns [facility] Address [address], 4t [place] [address]- Care Team Providers Care Manufacturing Weaver Name Role Phone Cole Dorado MD Primary Care Physician Encounter [facility] [place] Date(s): 11/03/22 - 12/03/22 [facility] Cesar Valencias [facility] [address], 4th Floor [place], [place] [address] Allergies, Adverse Reactions, Alerts [...] 12/03/22 13:18:00 EDT, Route to Pharmacy Electronically, [facility] [id number] [facility], Partial fill upon patient request [...] Team Personnel Name: Erik Waddell DO Position: [facility] HEEL ROOM SUPERVISOR MD Member Role: Lifetime HEEL ROOM SUPERVISOR Physician Address: Address: [address] [place] [address] [facility] Electric [place] [address]- Name: Cole Dorado MD Position: [facility] Physician - Primary Care Member Role: PCP Address: Address: [address] [place] [address]- Name: Sary Isaac RN Position: [facility] RN Member Role: Primary Care Nurse Name: Martínez DUNBAR, Lalitha Huff Position: [facility] Onco RN Member Role: Primary Care Nurse Care Team Related Persons Name: KINA SHABAZZ Address: home [address] [address] Name: GUEVARA SHABAZZ Address: home [address] [place] [address]
--- OUTSIDE RECORDS SUMMARY | 2023-12-06 11:20 | XMS_ITS | Continuity of Care Document ---
Author Organization [facility] Address [address] [place] [address]- Care Team Providers Care Planishing Press Operator Name Role Phone Estrada FLORES, Cole Garcia Primary Care Physician Encounter [facility] [place] Date(s): 07/02/22 - 08/01/22 [facility] [address] [place] [address] [place] Allergies, Adverse Reactions, Alerts Substance Reaction [...] 15:20:00 EDT, [facility] to [id number], Partial fill upon patient request [...] Team Personnel Name: Erik Waddell DO Position: [facility] PERSONNEL SUPERVISOR MD Member Role: Lifetime PERSONNEL SUPERVISOR Physician Address: Address: [address] [place] [address] Severity [place] [address]- Name: Cole Dorado MD Position: [facility] Physician (General Medicine) Member Role: PCP Address: Address: [address] [place] [address]- Name: Sary Isaac RN Position: [facility] RN Member Role: Primary Care Nurse Name: Lalitha Soliz RN Position: [facility] Onco RN Member Role: Primary Care Nurse Care Team Related Persons Name: KINA SHABAZZ Address: home [address] [facility] [address] [place] [address] Name: GUEVARA SHABAZZ Address: home [address] [place] [address]
--- OUTSIDE RECORDS SUMMARY | 2023-12-06 11:20 | XMS_ITS | Continuity of Care Document ---
Author Organization [facility] Address [address] [facility] [address], 4t [place] [address]- Care Team Providers Care Language Instructor Name Role Phone Cole Dorado MD Primary Care Physician Encounter [facility] [place] Date(s): 11/02/22 - 12/02/22 [facility] Cesarmaximus CormierMusic180.coms [facility] [address] [facility] [address], 4th Floor [place], [place] [address] Allergies, Adverse Reactions, Alerts [...] 01/30/17 Status: Ordered oxyCODONE 5 mg oral capsule 1 capsule = 5 mg, By Mouth, Every 6 hours, PRN as needed for pain, # 12 capsule, 0 Refills, Acute 12/05/22 17:05:00 EDT, 12/02/22 17:05:00 EDT, [id number], Partial fill upon patientrequest if the prescription is for a schedule II op... Start Date: 12/02/22 Stop Date: 12/05/22 Status: Ordered traZODone 100 mg oral tablet [...] Team Personnel Name: Erik Waddell DO Position: [facility] BUSINESS SUPPORT MANAGER MD Member Role: Lifetime BUSINESS SUPPORT MANAGER Physician Address: Address: [address] [place] [address] [facility] [place] [address]- Name: Cole Dorado MD Position: [facility] Physician - Primary Care Member Role: PCP Address: Address: [address] [place] [address]- Name: Sary Isaac RN Position: [facility] RN Member Role: Primary Care Nurse Name: Martínez DUNBAR, Lalitha Huff Position: [facility] Onco RN Member Role: Primary Care Nurse Care Team Related Persons Name: KINA SHABAZZ Address: home [address] [place] [address] Name: GUEVARA SHABAZZ Address: home [address] [place] [address]
--- OUTSIDE RECORDS SUMMARY | 2023-12-06 11:21 | XMS_ITS | Continuity of Care Document ---
Author Organization [facility] Last n's [facility] Address [address], 4t [place] [address]- Care Team Providers Care Veneer Taper Name Role Phone Cole Dorado MD Primary Care Physician Encounter [facility] [place] Date(s): 05/14/21 - 06/13/21 [facility] Locomaximus CormierAUPEO!s [facility] [address], 4th [place] [address]- Allergies, Adverse Reactions, Alerts Substance Reaction Severity [...] 06/18/21 11:18:00 EDT, 06/11/21 11:18:00 EDT, Tablet, [id number], Partial fill upon patient request if the [...] 06/14/21 11:20:00 EDT, 06/11/21 11:20:00 EDT, Capsule, [id number], Partial fill upon patient request if the [...] 06/11/21 11:18:00 EDT, Route to Pharmacy Electronically, [facility] #[id number], Partial... Start Date: 06/11/21 Stop Date: 06/16/21 [...] 06/11/21 11:19:00 EDT, Route to Pharmacy Electronically, [facility] #[id number], Partial fill upon patient r... Start Date: [...]
--- OUTSIDE RECORDS SUMMARY | 2023-12-06 11:21 | XMS_ITS | Continuity of Care Document ---
Author Organization [facility] Address [address] [place] [address]- Care Team Providers Care Digester Operator Name Role Phone Cole Dorado MD Primary Care Physician Encounter [facility] [place] Date(s): 03/04/23 - 07/02/[address] [address] Attending Physician: Farnaz Tee MD Admitting Physician: Farnaz Tee MD Referring Physician: Cole Dorado MD Allergies, [...] Team Personnel Name: Erik Waddell DO Position: [facility] SECURITY DISPATCHER MD Member Role: Lifetime SECURITY DISPATCHER Physician Address: Address: [address] [place] [address]- Name: Cole Dorado MD Position: [facility] Physician - Primary Care Member Role: PCP Address: Address: [address] [place] [address]- Name: Sary Isaac RN Position: [facility] RN Member Role: Primary Care Nurse Name: Martínez DUNBAR, Lalitha Huff Position: [facility] Onco RN Member Role: Primary Care Nurse Care Team Related Persons Name: KINA SHABAZZ Address: home [id number] [place] [address] Name: GUEVARA SHABAZZ Address: home [address] [facility] [place] [address]
--- OUTSIDE RECORDS SUMMARY | 2023-12-06 11:21 | XMS_ITS | Continuity of Care Document ---
Author Organization [facility] Pl[facility] Armond chano Address [address] [place] [address] [address] [place] [address]- Care Team Providers Care Regulatory Process Manager Name Role Phone Cole Dorado MD Primary Care Physician En[place] [facility] [place] Date(s): 01/03/23 - 02/02/23 [facility] [address] [place], [place] [address] Attending Physician: Merry Khan Admitting Physician: AdmtrMerry Referring Physician: AdmtrMerry Allergies, Adverse Reactions, Alerts [...] Team Personnel Name: Erik Waddell DO Position: [facility] EMT DRIVER MD Member Role: Lifetime EMT DRIVER Physician Address: Address: [address] [place], [place] [address]s [facility] Bus And Trolley [place] [address]- Name: Cole Dorado MD Position: [facility] Physician - Primary Care Member Role: PCP Address: Address: [address] [place] [address]- Name: Sary Isaac RN Position: [facility] RN Member Role: Primary Care Nurse Name: Martínez DUNBAR, Lalitha Huff Position: [facility] Onco RN Member Role: Primary Care Nurse Care Team Related Persons Name: KINA SHABAZZ Address: home [id number] [place] [address] Name: GUEVARA SHABAZZ Address: home [address] [place] [address]
--- OUTSIDE RECORDS SUMMARY | 2023-12-06 11:21 | XMS_ITS | Continuity of Care Document ---
Author [facility] Address [address] [facility], 4t [place] [address]- Care Team Providers Care Jewelry Setter Name Role Phone Cole Dorado MD Primary Care [id number]11[facility] - 11/10/21 [facility] CasaIzzy Moneys [facility] [address] [facility], 4th Floor [place], [place] [address] Allergies, Adverse Reactions, Alerts [...]
--- OUTSIDE RECORDS SUMMARY | 2023-12-06 11:21 | XMS_ITS | Patient Health Record ---
Author Organization [facility] Address [address] [place] [address] Care Team Providers Care Braider Setter Name Role Phone Ronald Rea Primary Care Provider Reason For Referral No Information Medications Medication SIG (Take, Route, Frequency, Duration) Notes Start Date End Date Status BOTOX 200 UNITS VIAL 1 To be injected per MD for 30 *please review for potential update for e-prescription and drug interaction check* 02/10/2011 Active Ondansetron HCl 8 MG 60 Oral 1 q6h prn nausea for 90 03/03/2010 Active CYMBALTA 60 MG CAPSULE 180 2 in A.M. for 90 *please review for potential update for e-prescription and drug interaction check* 06/16/2010 Active INDERAL LA 120 MG CAPSULE 90 1 qhs for 30 *please review for potential update for e-prescription and drug interaction check* 10/04/2012 Active tiZANidine HCl 2 MG 90 Oral 1-3 DAILY as needed for pain for 30 08/20/2010 Active Inderal LA 160 mg Capsule,Sustained Action 24 hr 180 Take 1 capsule by mouth twice a day for 0 *please review for potential update for e-prescription and drug interaction check* 12/17/2008 Active tiZANidine HCl 6 MG 90 Oral 1-3 Q4-6h as needed for pain for 30 09/11/2010 Active Topamax 200 MG 90 Oral Take 1 tablet by mouth at bedtime for 0 04/15/2009 Active MIRENA SYSTEM 20 MCG/24 HR 0 for 30 *please review for potential update for e-prescription and drug interaction check* 04/26/[address] 20 MG CAPSULE 0 1 qam *please review for potential update for e-prescription and drug interaction check* 05/23/2012 Active Citrucel for 0 *please review f or potential update for e-prescription and drug interaction check* 08/29/2007 Active TIZANIDINE HCL 2 MG TABLET 90 3 qhs for 30 *please review for potential update for e-prescription and drug interaction check* 10/06/2010 Active Gabapentin 600 MG 150 Oral Take 2 tabs in the AM and 3 tabs at hour of sleep for 0 10/06/2010 Active TIZANIDINE HCL 4 MG TABLET 90 3 qhs for 30 *please review for potential update for e-prescription and drug interaction check* 04/27/2011 Active Vitamin B-2 100 mg Oral 2 BID for 0 10/11/2007 Active Lisinopril 5 MG 0 Oral 1 qam for 30 04/26/2011 Active Plan Of Treatment No Information Insurance Providers Payer Name Payer Address Payer Phone Subscriber Number Group Number Insured Name Patient Relationship to Insured Coverage Start Date Coverage End Date BCBS OF [place]ASSANDRA Rush/LOGAN Meyers BCBS [address] [place], [place] [id number] Reena Kam Self - patient is the insured [place] OF [place]/OUT OF [place]AN [address] [place], [place] [id number] Reena Kam Self - patient is the insured
--- OUTSIDE RECORDS SUMMARY | 2023-12-06 11:21 | XMS_ITS | Continuity of Care Document ---
Author Organization [facility] Address [address] [facility], 4t [place] [address]- Care Team Providers Care Chemical Research Worker Name Role Phone Cole Dorado MD Primary Care Physician En[facility] [place] Date(s): 09/16/20 - 10/16/20 [facility] [address], 4th [place], [place] [address] Allergies, Adverse Reactions, Alerts Substance Reaction Severity Status doxycycline c-diff Active droperidol Tongue swelling Active Amerge Tongue swelling Active Maxalt tongue swells Active Keflex ITCHY AND RASH Active Imitrex tongue swells Active Demerol hallucinates Active Phenergan Tongue swelling [...] Refills, Soft Stop, 07/29/20 11:38:00 EDT, Tablet, [id number], Partial fill upon patient request if the [...] 01/16/20 8:32:00 EDT, Route to Pharmacy Electronically, op5... Start Date: 01/16/20 Status: Ordered Flonase 1 [...] Refills, Maintenance, 03/01/20 12:07:00 EST, [id number], 153, cm, 01/15/20 16:14:00 EDT, [...] Maintenance,01/22/20 14:27:00 EDT, Tablet, [facility] #[id number], 153, cm, 01/15/20 16:14:00 EDT, Height,57, kg, [...]
--- OUTSIDE RECORDS SUMMARY | 2023-12-06 11:21 | XMS_ITS | Continuity of Care Document ---
Author Organization [facility] Address [address] [facility], 4t [place] [address]- Care Team Providers Care Wood Coater Name Role Phone Cole Dorado MD Primary Care Physician Encounter [facility] [place] Date(s): 04/08/22 - 05/08/22 [facility] [place] [facility] [address] [facility], 4th Floor [place], [place] [address] Allergies, Adverse Reactions, Alerts Substance Reaction [...] Personnel Name: Erik Waddell DO Position: [facility] DIGITAL MARKETING STRATEGIST MD Member Role: Lifetime DIGITAL MARKETING STRATEGIST Physician Address: Address: [address] [place] [address]'s [facility] [place] [address]- Name: Cole Dorado MD Position: [facility] Physician (General Medicine) Member Role: PCP Address: Address: [address] [place] [address]- Name: Sary Isaac RN Position: [facility] RN Member Role: Primary Care Nurse Name: Martínez DUNBAR, Lalitha Huff Position: [facility] Onco RN Member Role: Primary Care Nurse Care Team Related Persons Name: KINA SHABAZZ Address: home [address] [facility] [address] [place] [address] Name: GUEVARA SHABAZZ Address: home [address] [place] [address]
--- OUTSIDE RECORDS SUMMARY | 2023-12-06 11:21 | XMS_ITS | Continuity of Care Document ---
Author Organization [facility] Address [address] [place] [address]- Care Team Providers Care Checkout Operator Name Role Phone Cole Dorado MD Primary Care Physician [place] [facility] [place] 04/03/19 - 04/03/[address] [address]- [facility] Attending Physician: Xochitl Hunt MD Allergies, Adverse Reactions, Alerts Substance Reaction [...] Soft Stop, 04/03/19 14:35:00 EST, Tablet, [id number], 153, cm, 04/03/19 14:21:00 EST, [...]
--- OUTSIDE RECORDS SUMMARY | 2023-12-06 11:21 | XMS_ITS | Continuity of Care Document ---
Author Organization [facility] Last nHelpful [employer] Address [address] [facility], 4[place] [address]- Care Team Providers Care Newspaper Delivery Driver Name Role Phone Cole Dorado MD Primary Care Physician Encounter [facility] Date(s): 04/08/23 - 05/08/23 [facility] Polsonmaximus CormierHelpful Technologiess [facility] [address] [facility], 4th Floor [place], [place] [address] Allergies, Adverse Reactions, Alerts [...] Team Personnel Name: Erik Waddell DO Position: [facility] DIRECTOR FINANCIAL ANALYSIS MD Member Role: Lifetime DIRECTOR FINANCIAL ANALYSIS Physician Address: Address: [address] [place] [address]- Name: Cole Dorado MD Position: [facility] Physician - Primary Care Member Role: PCP Address: Address: [address] [place] [address]- Name: Sary Isaac RN Position: [facility] RN Member Role: Primary Care Nurse Name: Martínez DUNBAR, Lalitha Huff Position: [facility] Onco RN Member Role: Primary Care Nurse Care Team Related Persons Name: KINA SHABAZZ Address: home [address] [facility] [address] [place] [address] Name: GUEVARA SHABAZZ Address: home [address] [place] [address]
--- OUTSIDE RECORDS SUMMARY | 2023-12-06 11:21 | XMS_ITS | Continuity of Care Document ---
Author Organization [facility] Address [address] [facility], 4t [place] [address]- Care Team Providers Care Oleo Hasher And Renderer Name Role Phone Cole Dorado MD Primary Care Physician Encounter [facility] Date(s): 06/21/19 - 06/28/19 [facility] [address], 4th [place] [address]- Attending Physician: Rashi Ross MD Allergies, Adverse [...]
--- OUTSIDE RECORDS SUMMARY | 2023-12-06 11:21 | XMS_ITS | Continuity of Care Document ---
Author Organization [facility] Last [facility] Address [address] [facility], 4[place] [address]- Care Team Providers Care Supervisor Cd Area Name Role Phone Cole Dorado MD Primary Care Physician [place] [facility] [place]): 02/18/23 - 03/20/23 [facility] Cesarmaximus CormierEarlySharess [facility] [address] [facility], 4th Floor [place], [place] [address] Allergies, Adverse Reactions, Alerts Substance Reaction [...] Team Personnel Name: Erik Waddell DO Position: [facility] PRODUCT SAFETY COORDINATOR MD Member Role: Lifetime PRODUCT SAFETY COORDINATOR Physician Address: Address: [address] [place] [address]- Name: Cole Dorado MD Position: [facility] Physician - Primary Care Member Role: PCP Address: Address: [address] [place] [address]- Name: Sary Isaac RN Position: [facility] RN Member Role: Primary Care Nurse Name: Martínez DUNBAR, Lalitha Huff Position: [facility] Onco RN Member Role: Primary Care Nurse Care Team Related Persons Name: KINA SHABAZZ Address: home [address] [facility] [address] [place] [address] Name: GUEVARA SHABAZZ Address: home [address] [place] [address]
--- OUTSIDE RECORDS SUMMARY | 2023-12-06 11:21 | XMS_ITS | Continuity of Care Document ---
Author Organization [facility] Last n's [facility] Address [address] [facility], 4[place] [address]- Care Team Providers Care Technical Training Coordinator Name Role Phone Cole Dorado MD Primary Care Physician Encounter [facility] Date(s): 06/22/23 - 07/22/23 [facility] Baringmaximus CormierFast Assets [facility] [address] [facility], 4th [place], [place] [address] Allergies, Adverse Reactions, Alerts Substance [...] 07/19/23 15:55:00 EDT, Route to Pharmacy Electronically, [facility]/pharmacy #[id number], Partial fill upon patient request if t... [...] Waddell DO Position: [facility] COMMERCIAL LOAN CLOSER MD Member Role: Lifetime COMMERCIAL LOAN CLOSER Physician Address: Address: [address] [place] [address]- Name: Cole Dorado MD Position: [facility] Physician - Primary Care Member Role: PCP Address: Address: [address] [place] [address] Name: Sary Isaac RN Position: [facility] RN Member Role: Primary Care Nurse Name: Lalitha Soliz RN Position: [facility] Onco RN Member Role: Primary Care Nurse Care Team Related Persons Name: KINA SHABAZZ Address: home [address] [address] Name: GUEVARA SHABAZZ Address: home [address] [place] [address]
--- OUTSIDE RECORDS SUMMARY | 2023-12-06 11:21 | XMS_ITS | Continuity of Care Document ---
Author Organization [facility] Address [address] [facility] [address] [place] [address]- Care Team Providers Care Director Of Customer Acquisition Name Role Phone Estrada FLORES, Cole Garcia Primary Care Physician Encounter 12/24/20 - 12/31/20 [facility] [address] [facility] [address] [place] [address]- Attending Physician: Rashi Ross MD Admitting Physician: [...] Refills, Soft Stop, 07/29/20 11:38:00 EDT, Tablet, [id number], Partial fill upon patient request if the [...] 01/16/20 8:32:00 EDT, Route to Pharmacy Electronically, [facility]... Start Date: 01/16/20 Status: Ordered Flonase 1 [...] Refills, Maintenance, 03/01/20 12:07:00 EST, [id number], 153, cm, 01/15/20 16:14:00 EDT, [...] Maintenance,01/22/20 14:27:00 EDT, Tablet, [facility] #[id number], 153, cm, 01/15/20 16:14:00 EDT, Height,57, kg, [...]
--- OUTSIDE RECORDS SUMMARY | 2023-12-06 11:21 | XMS_ITS | Continuity of Care Document ---
Author Organization [facility] Address [address] [place] [address]- Care Team Providers Care Outreach And Education Social Worker Name Role Phone Cole Dorado MD Primary Care Physician Encounter [facility] [place] Date(s): 06/23/22 - 07/23/22 [facility] [address] [place] [address] [place] Allergies, Adverse Reactions, Alerts Substance Reaction [...] Team Personnel Name: Erik Waddell DO Position: [facility] MAPPING ENGINEER MD Member Role: Lifetime MAPPING ENGINEER Physician Address: Address: [address] [place] [address] [facility] Endocrinology [place] [address]- [place] Name: Cole Dorado MD Position: [facility] Physician (General Medicine) Member Role: PCP Address: Address: [address] [place] [address]- Name: Sary Isaac RN Position: [facility] RN Member Role: Primary Care Nurse Name: Martínez DUNBAR, Lalitha Huff Position: [facility] Onco RN Member Role: Primary Care Nurse Care Team Related Persons Name: KINA SHABAZZ Address: home [address] [address] Name: GUEVARA SHABAZZ Address: home [address] [place] [address]
--- OUTSIDE RECORDS SUMMARY | 2023-12-06 11:21 | XMS_ITS | Continuity of Care Document ---
[facility] Organization [facility] Address [address], [address] [place] [address]- Care Team Providers Care Compensation Intern Name Role Phone Cole Dorado MD Primary Care Physician [place] [facility] [place] 08/07/20 [facility] [address], [address]th [place] [address]- Allergies, Adverse Reactions, Alerts Substance Reaction Severity [...] Refills, Soft Stop, 07/29/20 11:38:00 EDT, Tablet, [id number], Partial fill upon patient request if the [...] 01/16/20 8:32:00 EDT, Route to Pharmacy Electronically, [facility]... Start Date: 01/16/20 Status: Ordered Flonase 1 [...] Refills, Maintenance, 03/01/20 12:07:00 EST, [facility]t, [id number], 153, cm, 01/15/20 16:14:00 EDT, Height, 57, kg, 08/31/18 15:38:00 EDT, Dry Weight Start Date: 03/01/20 Status: Ordered oxyCODONE 5 mg oral tablet 5 mg, 1, tablet, By Mouth, Every 6 hours, PRN, # 12 tablet, Refills 0, Tot. Refills 0, Acute 08/14/20 10:59:00 EDT, as needed for pain, 08/06/20 10:59:00 EDT, Route to Pharmacy Electronically, [id number], Partial fill upon patient request [...] tablet, 3 Refills, Maintenance,01/22/20 14:27:00 EDT, Tablet, [id number], 153, cm, 01/15/20 16:14:00 EDT, Height,57, kg, [...]
--- OUTSIDE RECORDS SUMMARY | 2023-12-06 11:21 | XMS_ITS | Continuity of Care Document ---
Author Organization [facility] Address [address], [address] [place] [address]- Care Team Providers Care Manager University Name Role Phone Cole Dorado MD Primary Care Physician Encounter [facility] [place] Date(s): 05/12/21 - 06/11/21 [facility] [address], [address] [place], [place] [address] Allergies, Adverse Reactions, Alerts [...] 06/18/21 11:18:00 EDT, 06/11/21 11:18:00 EDT, Tablet, [id number], Partial fill upon patient request if the [...] 06/14/21 11:20:00 EDT, 06/11/21 11:20:00 EDT, Capsule, [facility][id number], Partial fill upon patient request if the [...] 06/11/21 11:18:00 EDT, Route to Pharmacy Electronically, [facility] #[id number], Partial... Start Date: 06/11/21 Stop Date: 06/16/21 [...] 06/11/21 11:19:00 EDT, Route to Pharmacy Electronically, [facility] #[id number], Partial fill upon patient r... Start Date: [...]
--- OUTSIDE RECORDS SUMMARY | 2023-12-06 11:21 | XMS_ITS | Continuity of Care Document ---
Author Organization [facility] Address [address] [place] [address] [address] [place] [address]- Care Team Providers Care Senior Water/Wastewater Engineer Name Role Phone Cole Dorado MD Primary Care Physician Encounter [facility] [place] Date(s): 12/18/20 - 01/17/21 [facility] [address] [place], [place] [address] Allergies, Adverse Reactions, Alerts [...] Refills, Maintenance, 03/01/20 12:07:00 EST, Tablet, [id number], 153, cm, 01/15/20 16:14:00 EDT, [...] tablet, 3 Refills, Maintenance,01/22/20 14:27:00 EDT, Tablet, [facility][id number], 153, cm, 01/15/20 16:14:00 EDT, Height,57, kg, [...]
[2023-12-06] MEDS: methocarbamoL 750 MG TABLET PO (11:28)
[2023-12-06] MEDS: Scopolamine 1.5 MG PATCH.TD.3 TRANSDERMA (11:29)
--- NOTE | 2023-12-06 11:32 | P.HPSUR_ITS ---
Pre-Procedural Eval Section A - 24 Hr Update-Section A only Date of Service: 12/06/23 The patient is an INPATIENT: No Changes since office visit: No Cold of Flu in the past 2 weeks, No New Medical Problems, No Changes in Medication and No Patient answered all questions The patient has been examined within 24 hours of the surgical procedure. The History & Physical has been completed within 30 days and I have reviewed it.: No Section B - Complete if H&P > 30 days Chief Complaint: s/p L4-5 transkambin lumbar fusion Allergies: Allergies Allergy/AdvReac Type Severity Reaction Status Date / Time cephalexin [From Keflex] Allergy Intermediate Rash Verified 11/18/23 11:59 meperidine [From Demerol] Allergy Intermediate Hallucinati Verified 11/18/23 11:59 ons metoclopramide [From Reglan] Allergy Intermediate Swelling Verified 11/18/23 11:59 prochlorperazine Allergy Intermediate Swelling Verified 11/18/23 11:59 [From Compazine] promethazine [From Phenergan] Allergy Intermediate Swelling Verified 11/18/23 11:59 [id number] Antimigraine Allergy Intermediate Swelling Verified 11/18/23 11:59 Agents narcotic sensitivity Allergy Mild Itching Uncoded 11/21/23 12:45 (takes benadryl w/narcotics to relieve itching) Review of Systems Sugical H&P ROS: Negative: Constitution, Cardiovascular, Respiratory, Neurological, Psychiatric, Hem-Onc, Allergic/Immunologic, Gastrointestinal, Genitourinary, Musculoskeletal, Integumentary, Endocrine and Eyes/Ear s/Nose/Throat Exam Surgical H&P Exam: Normal: HEENT, Normal: Heart, Normal: Lungs, Normal: Extremities, Normal: Abdomen, Normal: Skin and Normal: Neurological (awake, alert,oriented x 3 ) Plan Diagnosis/Plan: Unchanged L4-5 transkambin lumbar interbody fusion Time Spent With Patient Time: Total time managing care of this patient today __6__ minutes.
[2023-12-06] MEDS: Lactated Ringers 1,000 ML 100 ML IVCONT (12:03)
--- NOTE | 2023-12-06 14:33 | P.OP_ITS ---
Operative Note Operative Note Date of Service: 12/06/23 Narrative: Preop diagnosis: L4-5 degenerative disc disease with back pain(transitional segment) Postop diagnosis: Same Procedure: L4-5 intertransverse process fusion ; L4-5 posterior instrumentation; allograft Consent Informed Consent was obtained for this operation. I have explained the nature, purpose and benefits of the operation. I have discussed the risks and benefit of the operation including possible complications or adverse events with patient/family. Alternative(s) were discussed with the patient with their relative benefits and risks as well as the consequences of not accepting the operation were included in obtaining consent. Surgeon: Rico Garcia MD, PhD Assist: honey Rodriguez Description of Procedure: This 53-year-old female suffering from chronic back pain. He CT myelogram shows L4-5 lumbar degenerative disc disease. The original plan was to do Transkambin lumbar fusion. The procedure and complication were explained. The patient was consented. The patient was brought to the operating room endotracheally intubated. The patient was turned in a prone position the Rubin spine table prepping and draping was done followed by time-out. Two C arms were installed for fluoroscopy. Initially, I tried a Transkambin approach but unfortunately I was unable to find a silent the window with neuro monitoring to safely perform this surgery. I tried from bilateral sides. I decided to convert the procedure to a posterolateral fusion with instrumentation as there was no instability of the segment. Two paramedian incisions were made. The posterolateral gutter was exposed with the transverse processes of L4-5 bilaterally. The lateral part of the facet joints and transverse processes were decorticated in preparation for the posterolateral fusion. Then a pediguard tap was used to create a transpedicular trajectory into the vertebral body at the L4 and L5 levels bilaterally. A K-wire was inserted. Finally, pedicle screws were placed over the K-wires and the K-wires were removed. A total 4 pedicle screws were placed with a diameter of 6.5 x 40 mm in the bilateral L4 and L5 pedicles. The pedicle screws were connected with a 35 mm manuel and locked down with locking caps. Allograft was laid down in the posterolateral gutter to finalize the posterolateral fusion L4-5. Final x-rays in AP and lateral projection showed good position of the posterior instrumentation. Hemostasis was done and the incisions were closed with an 0 Vicryl to fascia and a 3-0 Vicryl for the subdermal layer. All sponge and needle counts were correct. Patient was extubated and transported in a stable condition to recovery room. This procedure was done with assistance of her physician psychiatric assistant who helped an office automation technician in the fluoroscopic imaging, placed pedicle screws and performed hemostasis and closure of the incisions. Anesthesia: General Estimated blood loss: 60 mL Surgical time: 2 hours Complications: None. Deposition: Admit to inpatient for observation.
[2023-12-06] MEDS: HYDROmorphone HCl 0.5 MG/0.5 ML SYRINGE 0.25 MG IVPUSH ×6 (15:20→15:55)
[2023-12-06] MEDS: diphenhydrAMINE HCL 25 MG CAPSULE PO ×2 (16:45→23:41)
[2023-12-06] MEDS: Ketorolac Tromethamine 15 MG/ML VIAL IVPUSH ×2 (18:12→23:40)
[2023-12-06] MEDS: 0.9 % Sodium Chloride 1,000 ML 75 ML IVCONT (18:13)
--- NOTE | 2023-12-06 19:36 | PHA.MEDREC ---
Addendum entered by Cristino Cr [facility] 12/06/23 19:58: Med rec reviewed Original Note: Pharmacy Consult ? Medication Reconciliation Pharmacy has reviewed the medication reconciliation done by nursing. Spoke to patient to confirm med list. Patient states she takes Vitamin b-12 once a month, last dose was 8-24, Trudhesa 0.725 intranasal q week only when needed, last took one month ago, Vyepti 100mg IV every 3 month last dose in October, next dose is in January, Estradiol patch 2x week on Tue and Fridays, new patch was put on today, Synthroid is 37.5 mg (1 and 1/2 tab) daily, Ketorolac 30mg IM q6-8H only when needed, last took two weeks ago.
[2023-12-06] MEDS: Acetaminophen 1,000 MG/100 ML PIGGYBACK 400 MG IV (20:29)
[2023-12-06] MEDS: Docusate Sodium 100 MG CAPSULE PO (20:31)
[2023-12-06] MEDS: Gabapentin 300 MG CAPSULE 600 MG PO (20:31)
[2023-12-06] MEDS: lisinopriL 40 MG TABLET PO (20:31)
[2023-12-06] MEDS: amLODIPine Besylate 5 MG TABLET PO (20:31)
[2023-12-06] MEDS: vancomycin HCL 1,000 MG in 0.9 % Sodium Chloride 250 ML 270 MG IV (23:44)
[2023-12-06] MEDS: traZODone HCL 100 MG TABLET PO (23:53)
[2023-12-07] MEDS: Acetaminophen 1,000 MG/100 ML PIGGYBACK 400 MG IV ×2 (02:44→08:43)
[2023-12-07 03:04] VITALS: BP 90/60; PULSE 62; RESP 16; TEMP 36.3; O2SAT 96
[2023-12-07] MEDS: Levothyroxine Sodium 25 MCG TABLET 37.5 MCG PO (05:56)
[2023-12-07] MEDS: Ketorolac Tromethamine 15 MG/ML VIAL IVPUSH ×2 (05:57→11:14)
[2023-12-07] MEDS: diphenhydrAMINE HCL 25 MG CAPSULE PO (06:00)
--- NOTE | 2023-12-07 07:27 | HO.NEURO.PN ---
Neurosurgery Operative Note Date of Service: 12/07/23 Narrative: POD: 1 Procedure:L4-5 Lumbar Fusion Hollis was seen sitting upright in bed on 3 South. She reports she is up walking around is otherwise doing well. She feels his symptoms are better than pre-operatively, however she still reports quite a bit of low back pain. She does get intermittent relief from her current pain regimen. She is OOB voiding well, tolerating diet. She voiced concerns regarding discharged home today and we discussed the possibility of either returning home or staying dependent on how she does with physical therapy and how well her pain is controlled throughout the day. Afebrile, vital signs stable. Full strength 5/5 bilateral LE's. Back dressings have some staining without signs of hematoma. No active sanguineous drainage. Area is dry.. Plan: Patient is postop day 1 status post L4-5 lumbar fusion. She will be kept on 3 South for recovery, pain management, and further evaluation for the time being. It is recommended that she get up out of bed as frequently as possible, work with physical therapy, and attempt to increase her mobility today. This case was discussed with the attending neurosurgeon Dr. Garcia who is in agreement with this plan. Jack Garcia MD,PhD [facility]
[2023-12-07 07:41] VITALS: BP 90/60; PULSE 62; O2SAT 96
--- NOTE | 2023-12-07 07:42 | PM.DS ---
DS: Providers Provider Date of Service: 12/07/23 Date of admission: 12/06/23 11:09 Primary care physician: Cole Santana MD DS: Summary Time Attestation Discharge Coordination Time (in mins): 15 Quality: Safe Use of Opioids Does Pt have an Active Cancer Diagnosis on the Problem List?: No Quality: Stroke Does the patient have a stroke diagnosis?: No Physical Exam Vital Signs: Vital Signs: Last Vital Signs Temp 97.3 F 12/07/23 03:04 Pulse 62 12/07/23 03:04 Resp 16 12/07/23 03:04 BP 90/60 12/07/23 03:04 Pulse Ox 96 12/07/23 03:04 O2 Del Method Room Air 12/07/23 03:04 O2 Flow Rate 2 12/06/23 16:57 BMI result Body Mass Index 27.7 Discharge Plan Discharge Anticipated Discharge Date/Time: 12/07/23 07:48 Patient Disposition: Home, Self-Care Discharge Diagnosis: s/p L4-5 Lumbar fusion Referrals: Cole Santana MD [Primary Care Provider] - 1 Week Discharge Medications: New oxycodone 5 mg tablet 5 mg PO Q6H PRN (Reason: severe pain (scale score 7-10)) Qty: 30 0RF Rx Instructions: Partial Fill upon patient request. Continued chlorthalidone 25 mg tablet 25 mg PO DAILY amlodipine 5 mg tablet 5 mg PO BEDTIME lorazepam 0.5 mg tablet 0.5 mg PO BID PRN (Reason: Anxiety) gabapentin 300 mg capsule 600 mg PO TID estradiol 0.025 mg/24 hr patch semiweekly 1 patch transdermal 2XW Rx Instructions: Tuesdays & Fridays duloxetine 60 mg capsule,delayed release(DR/EC) 120 mg PO DAILY mirabegron [Myrbetriq] 50 mg tablet extended release 24 hr 50 mg PO DAILY Ubrelvy 100 mg tablet 100 mg PO DAILY MRX1 PRN (Reason: Migraine Headache) Rx Instructions: may repeat in 2 hours lisinopril 40 mg tablet 40 mg PO BEDTIME Trudhesa 0.725 mg/pump act. (4 mg/mL) [place],Non-Aerosol 0.725 mg INTRANASAL QWEEK PRN (Reason: Migraine Headache) trazodone 50 mg tablet 100 mg PO BEDTIME PRN (Reason: Sleep) levothyroxine [Synthroid] 25 mcg tablet 37.5 mcg PO DAILY Rx Instructions: 1 and 1/2 tablet cyanocobalamin (vitamin B-12) 1,000 mcg/mL solution 1,000 mcg IM QMONTH Rx Instructions: next dose 11-29-23 cyclobenzaprine 5 mg tablet 5 mg PO BEDTIME PRN (Reason: Muscle Pain) multivitamin Tablet 1 tab PO DAILY acetaminophen [Tylenol Extra Strength] 500 mg Tablet 1,000 mg PO Q6H PRN (Reason: Pain) vitamin B complex Tablet 1 tab PO DAILY Held Vyepti 100 mg/mL Solution 100 mg IV [id number] Hold Instructions: Resume on 01/06/24. Rx Instructions: administer over 30 mins ( Next dose is in January 2024) ketorolac 60 mg/2 mL Syringe 30 mg IM Q6-8H PRN (Reason: Migraine Headache) Hold Instructions: Resume on 01/06/24. Rx Instructions: maximum total duration of 5 days from all oral, intranasal, or parenteral formulations Discharge Orders: Discharge Order (Routine); Ordered 12/07/23 Ordered By: Jack Ennis Diet: Advance to usual diet Activity on Discharge: As tolerated Stand Alone Forms: Patient Portal Discharge page Print Language: Kosovan Activity Restrictions/Additional Instructions: After your spinal surgery we ask you to observe the following restrictions/guidelines: Activity: With lumbar fusion surgery it is normal to have days in the first couple of weeks where you have increased leg pain. This usually lasts 1-2 days and self resolves with the continuation of medication. Attempt to stay mobile and continue activity as tolerated. It is normal to feel some discomfort as you increase your activity, but that will improve with time. We ask you avoid heavy lifting or activities that cause pain. As a general rule, 8lbs is a safe limit for lifting right after surgery. Walk as much as you feel comfortable but not to exhaustion. You will feel extra tired the first few days after surgery. Stay well hydrated. It is OK to walk up and down stairs You may return to driving when you are off narcotics (such as vicodin, oxycodone, dilaudid, etc), and you are back to normal functional capacity. If you have any concerns please check with office before driving. Return to work is specific to each patient and each surgery, so please speak with your doctor/PA at first follow up. Please bring paperwork such as FMLA at that time if you need it filled out. Medications: It is recommended that you take Tylenol 1,000mg 3 times daily for the first month post-operatively. We will give you a short supply of narcotics after surgery (usually one weeks worth). ?Please use this for breakthrough pain that is refractory to the Tylenol ibuprofen and gabapentin. If you need more please call the office but do not use more than prescribed. You will need to give our office 48 hours notice if you need narcotics refilled and we do not fill narcotics on weekends or evenings. If you are on a narcotic, it is a good idea to take a stool softener such as colace or senna to avoid constipation If you take blood thinner such as aspirin, Plavix, Coumadin, Effient, Eliquis etc for conditions such as Afib, DVT, Pulmonary embolus, coronary disease, stents etc please speak with your surgeon about specific details as to when you can resume these medications. You can resume NSAIDs on post op day 1 (eg: Motrin, Naproxen, etc). Follow up: Please call the office, , after surgery to arrange a 3 week follow up for wound check. Wound Care: You may remove your dressing on the first day after surgery. ?You may ?leave open to air. Please do not remove the steri strips underneath. they will fall off on their own in one week. IT IS NORMAL FOR THE WOUND TO OOZE OR BE BLOODY FOR A FEW DAYS AFTER SURGERY. ?IF THIS HAPPENS JUST PLACE NEW DRESSING OVER IT TO AVOID STAINING CLOTHES. You may shower on post op day # 1 We ask that you do not let the water soak the wound. If it does get wet, just towel dry lightly. Please do not scrub your incision or place any type of chemical/ointment on the wound. No tub baths, pools or jacuzzis for one month. If you have any leaking or redness from your wound, or fevers, please call office Care Plan Goals: Returned to normal activity as tolerated Health Concerns: None Plan of Treatment: Follow-up in clinic in 2-3 weeks Assessment: POD: 1 Procedure:L4-5 Lumbar Fusion Hollis was seen sitting upright in bed on [address]. She reports she is up walking around is otherwise doing well. She feels his symptoms are better than pre-operatively, however she still reports quite a bit of low back pain. She does get intermittent relief from her current pain regimen. She is OOB voiding well, tolerating diet. She voiced concerns regarding discharged home today and we discussed the possibility of either returning home or staying dependent on how she does with physical therapy and how well her pain is controlled throughout the day. Afebrile, vital signs stable. Full strength 5/5 bilateral LE's. Back dressings have some staining without signs of hematoma. No active sanguineous drainage. Area is dry.. Plan: Patient is postop day 1 status post L4-5 lumbar fusion. She was able to work with physical therapy this morning and reported after getting up, walking around, and mobilizing, that she would like to return home. Her oxycodone pain medication has been sent to the [facility] in [place]. Dr. Garcia was updated regarding this, and agrees to this plan. Jack Garcia MD,PhD [facility]
[2023-12-07 07:56] VITALS: BP 80/53; PULSE 70; RESP 18; TEMP 36.2; O2SAT 98
[2023-12-07] MEDS: DULoxetine HCl 60 MG CAPSULE.DR 120 MG PO (08:50)
[2023-12-07] MEDS: Docusate Sodium 100 MG CAPSULE PO (08:50)
[2023-12-07] MEDS: Mirabegron 50 MG TAB.ER.24H PO (08:50)
[2023-12-07] MEDS: Gabapentin 300 MG CAPSULE 600 MG PO (08:51)
--- NOTE | 2023-12-07 08:58 | HO.POSTANES ---
Post Anesthesia Evaluation Post Anesthesia Evaluation Date of Service: 12/06/23 Vital Signs: Vital Signs Temp Pulse Resp BP Pulse Ox O2 Del Method 12/07/23 07:56 97.2 F 70 18 80/53 L 98 Room Air 12/07/23 07:41 62 90/60 96 12/07/23 03:04 97.3 F 62 16 90/60 96 Room Air 12/06/23 23:40 96.9 F 69 16 96/63 98 Room Air Anesthesia: General Endotracheal-GETA Mental Status: Awake Pain Control: Satisfactory Nausea/Vomiting: None Anesthesia-Related Issues: No Anes. Related Issues
[2023-12-07] MEDS: 0.9 % Sodium Chloride 500 ML 999 ML IV (09:00)
--- NOTE | 2023-12-07 09:10 | MHC.CM.PN ---
Female 53 S/P L4-5 lumbar fusion. She lives with her spouse. She states that she is independent with all functional mobility. A new HCP has been documented. It has been scanned into the EMR. DP home self care. Patient's spouse will provide transportation home.
[2023-12-07 10:00] VITALS: BP 83/51; PULSE 67
[2023-12-07 10:16] LABS: MANUAL DIFF FLAG NO
[2023-12-07 10:21] LABS: Basophils Percent Auto 0.5 % (0-2); Eosinophils Absolute Auto 0.1 X10*3/uL (0.0-0.4); Eosinophils Percent Auto 1.4 % (0-4); Hematocrit 33.1 % (37.0-47.0); Hemoglobin 10.7 g/dl (12.0-16.0); Imm Gran Abs Auto 0.03 X10*3/uL (0.00-0.03); Imm Gran Pct Auto 0.5 % (0.0-0.4); Lymphocytes Absolute Auto 1.7 X10*3/uL (1.2-4.9); Lymphocytes Percent Auto 27.3 % (20-40); Mean Corpuscular HGB Conc 32.3 g/dl (31.0-35.0); Mean Corpuscular Hemoglobin 29.2 pg (27.0-33.0); Mean Corpuscular Volume 90.2 fL (80.0-98.0); Mean Platelet Volume 8.9 fL (9.4-12.3); Monocytes Absolute Auto 0.7 X10*3/uL (0.1-1.2); Monocytes Percent Auto 10.5 % (2-11); Neutrophils Absolute Auto 3.8 x10*3/uL (2.0-8.3); Neutrophils Percent Auto 59.8 % (45-73); Platelet Count 221 X10*3/uL (160-400); Red Blood Count 3.67 X10*6/uL (4.20-5.50); Red Cell Distribution Width 12.9 % (11.0-16.0); White Blood Count 6.4 X10*3/uL (4.8-10.8)
[2023-12-07] MEDS: HYDROmorphone HCl 2 MG TABLET PO (11:14)
== END 2023-12-07 12:44 | disposition home or self-care (01) | DRG 304 ==
LOC: HO.SSSA 11:11 → HO.S3 16:20
PROVIDERS: Neurological Surgery; Admitting Provider Physician Assistant; PCP Internal Medicine; Visit Provider Physician Assistant
PROC: 0SG00A0 Fusion of Lumbar Vertebral Joint with Interbody Fusion Device, Anterior Approach, Anterior Column, Open Approach (ICD-10-PCS; principal; 2023-12-06 14:30)
DX: M51.36 Other intervertebral disc degeneration, lumbar region (principal); E03.9 Hypothyroidism, unspecified; Z85.850 Personal history of malignant neoplasm of thyroid; Z79.890 Hormone replacement therapy; Z79.899 Other long term (current) drug therapy
CPT/HCPCS: 36415; 85025; 86850; 86900; 86901; 97162; C1713; C9290; J0131; J0665; J1170; J1885; J2250; J2371; J2704; J3010; J3370; L8699

== ENCOUNTER → 2023-12-06 11:09 | Outpatient (BNV) | payer BC, SELFPAY | PROVIDERS: Admitting Provider Physician Assistant; PCP Internal Medicine; Visit Provider Neurological Surgery | DX: Z48.89 Encounter for other specified surgical aftercare (principal) | CPT/HCPCS: 20930; 22612; 22840; 99024; 99499 ==

== ENCOUNTER 2023-12-27 13:47 | Outpatient (AMB) | payer BC, SELFPAY ==
--- NOTE | 2023-12-27 13:48 | A.SPINEOV_ITS ---
Intake Visit Reasons: 1st post op Intake Note: Ms. Kam is here today for her 1st post-op appointment. Point Of Care Technician Required: No Allergies cephalexin [From Keflex] Allergy (Intermediate, Verified 11/18/23 11:59) Rash meperidine [From Demerol] Allergy (Intermediate, Verified 11/18/23 11:59) Hallucinations metoclopramide [From Reglan] Allergy (Intermediate, Verified 11/18/23 11:59) Swelling prochlorperazine [From Compazine] Allergy (Intermediate, Verified 11/18/23 11:59) Swelling promethazine [From Phenergan] Allergy (Intermediate, Verified 11/18/23 11:59) Swelling [id number] Antimigraine Agents Allergy (Intermediate, Verified 11/18/23 11:59) Swelling narcotic sensitivity Allergy (Mild, Uncoded 11/21/23 12:45) Itching (takes benadryl w/narcotics to relieve itching) Assessment & Plan Assessment & Plan (1) Lumbar stenosis with neurogenic claudication: Code(s): M48.062 - Spinal stenosis, lumbar region with neurogenic claudication Category: Medical Plan Procedure: L4-5 transverse process fusion Reena comes in today for her 1st postoperative visit. To recap she initially was seen in clinic for 15 years of progressive lumbar back pain that radiates down both legs. She also reported tingling and numbness down both legs to her feet. Today she reports she is overall satisfied with the surgery and feels better than she did pre-operatively. Her back pain has improved. She still has the tingling pains in her bilateral hips and into her lower legs, but also reports slight improvement. She is up walking around and completing the majority of her ADLs. She is currently trying to only take tylenol for the pain. No new neurological deficits. Patient is able to ambulate well, rises from a seated position without difficulty. Incision sites are closed, well healing, with no signs of drainage. One small scabbing area over the right sided lateral incision, but overall looks good. No edema, erythema or fluctuance. We will follow-up with the patient in 6 weeks for their 2nd postoperative visit. At that time we will get x-rays to review with the patient. Jack Garcia MD,PhD [facility] Coding Level of Care Code Global (58277) Diagnoses Lumbar stenosis with neurogenic claudication M48.062
== END 2023-12-27 14:01 | disposition home or self-care (01) ==
PROVIDERS: PCP Internal Medicine; Visit Provider Physician Assistant
DX: M48.062 Spinal stenosis, lumbar region with neurogenic claudication (principal)
CPT/HCPCS: 99024

== ENCOUNTER → 2023-12-27 13:47 | Outpatient (BNVA) | payer BC, SELFPAY | PROVIDERS: PCP Internal Medicine; Visit Provider Physician Assistant ==

== ENCOUNTER 2024-02-07 13:43 | Outpatient (AMB) | payer BC, SELFPAY ==
--- NOTE | 2024-02-07 13:47 | HO.SPINEOV ---
Intake Visit Reasons: 2nd post op with Xray Intake Note: Mrs. Kam is here today for her 2nd post op with x-rays. Resort Keeper Required: No Allergies cephalexin [From Keflex] Allergy (Intermediate, Verified 02/07/24 14:20) Rash meperidine [From Demerol] Allergy (Intermediate, Verified 02/07/24 14:20) Hallucinations metoclopramide [From Reglan] Allergy (Intermediate, Verified 02/07/24 14:20) Swelling prochlorperazine [From Compazine] Allergy (Intermediate, Verified 02/07/24 14:20) Swelling promethazine [From Phenergan] Allergy (Intermediate, Verified 02/07/24 14:20) Swelling [id number] Antimigraine Agents Allergy (Intermediate, Verified 02/07/24 14:20) Swelling narcotic sensitivity Allergy (Mild, Uncoded 11/21/23 12:45) Itching (takes benadryl w/narcotics to relieve itching) Assessment & Plan Assessment & Plan (1) Cervical disc disorder: Code(s): M50.90 - Cervical disc disorder, unspecified, unspecified cervical region Category: Medical Plan Procedure: L4-5 intertransverse process fusion Reena comes in today for her 2nd postoperative visit. She reports she is very satisfied with the surgery and feels much better than she did pre-operatively. She is completing all ADLs without issue and is essentially back to regular activity. Her only concern is that she has a persistent posterior thigh pain/tingling feeling. She states this is much better than any pain she had prior to surgery but does feel it is residual from the surgery. We discussed the possibility of physical therapy, however the patient declined physical therapy and states that she is well-versed their exercises and would like to complete them at home. No new neurological deficits. Patient is able to ambulate well, rises from a seated position without difficulty. Incision sites are closed, well healing, with no signs of drainage. There is no need for continued routine follow up with Reena, she may see us on an as needed basis. Jack Garcia MD,PhD [facility] Orders: Orders XR lumbar spine 4V min Today M50.90 - Cervical disc disorder, unspecified, unspecified cervical region Coding Level of Care Code Global (52556) Diagnoses Cervical disc disorder M50.90
== END 2024-02-07 14:58 | disposition home or self-care (01) ==
PROVIDERS: PCP Internal Medicine; Visit Provider Physician Assistant
DX: M50.90 Cervical disc disorder, unspecified, unspecified cervical region (principal)
CPT/HCPCS: 99024

== ENCOUNTER 2024-02-07 13:43 | Outpatient (REF) | payer BC, SELFPAY ==
--- NOTE | ~2024-02-07 | XR_ITS ---
EXAMINATION: XR LUMBAR SPINE CLINICAL INFORMATION: Cervical disc disorder, unspecified, unspecified cervical region M50.90. COMPARISON: XR Lumbar spine 01/11/2023 TECHNIQUE: 4 views of lumbar spine were obtained. FINDINGS: Status post L4-L5 posterior fusion. No evidence of hardware complication. No pathologic motion with flexion or extension. Soft tissues are unremarkable. XR/XR lumbar spine 4V min IMPRESSION: Status post L4-L5 posterior fusion. No evidence of hardware complication. Electronically signed by: Gilbert Love MD 03/22/2024 11:19 AM ROSSI ANGELA
== END 2024-02-07 13:44 | disposition home or self-care (01) ==
LOC: HO.HOSX 13:43
PROVIDERS: PCP Internal Medicine; Visit Provider Physician Assistant
DX: M50.90 Cervical disc disorder, unspecified, unspecified cervical region (principal)
CPT/HCPCS: 72110

== ENCOUNTER 2024-07-23 14:48 | Outpatient (AMB) | payer BC, SELFPAY ==
--- NOTE | 2024-07-23 15:00 | HO.SPINEOV ---
Intake Visit Reasons: LBP/bilateral arm numbness Intake Note: Ms. Kam is here today c/o low back pain and bilateral arm numbness. Hard Rock Miner Required: No Allergies cephalexin [From Keflex] Allergy (Intermediate, Verified 02/07/24 14:20) Rash meperidine [From Demerol] Allergy (Intermediate, Verified 02/07/24 14:20) Hallucinations metoclopramide [From Reglan] Allergy (Intermediate, Verified 02/07/24 14:20) Swelling prochlorperazine [From Compazine] Allergy (Intermediate, Verified 02/07/24 14:20) Swelling promethazine [From Phenergan] Allergy (Intermediate, Verified 02/07/24 14:20) Swelling [id number] Antimigraine Agents Allergy (Intermediate, Verified 02/07/24 14:20) Swelling narcotic sensitivity Allergy (Mild, Uncoded 11/21/23 12:45) Itching (takes benadryl w/narcotics to relieve itching) Assessment & Plan Assessment & Plan (1) Cervical disc disorder: Code(s): M50.90 - Cervical disc disorder, unspecified, unspecified cervical region Category: Medical (2) Degeneration of lumbar intervertebral disc: Code(s): M51.36 - Other intervertebral disc degeneration, lumbar region Category: Medical Plan Mrs Kam is about 8 months out from her L4-5 transverse process fusion. We attempted a trans Kambin but unable to find a silent window we converted to an open transverse process fusion with pedicle screws. Unfortunately the surgery did not give her significant relief of her back pain, she is still having pain radiating down into her hips in her outer thighs. It is aggravated with standing and walking. Postoperative x-rays have looked okay, we are hopeful would go away but unfortunately it has not. It is severely affecting her quality of life so I am going to order CT myelogram of the lumbar spine. A 2nd issue she is here for today is persistent arm/hand pain and numbness. She feels like it starts at about the mid biceps and works its way down. Last year we worked her up with a CT myelogram which did not disclose any spinal cord compression or neuroforaminal narrowing. On exam today, she is demonstrating positive Phalen's and positive Tinel sign. No hyperreflexia or gait imbalance suggest myelopathy or repeating the CT myelogram. I suspect this is carpal tunnel as she also does have a degree of hand weakness and numbness. I am going to order an EMG to evaluate more closely. Total amount of time spent in this visit was 20 minutes in discussion of symptoms, lumbar x-ray imaging results and subsequent plan of care Cristino Garcia MD,PhD [facility] Orders: Orders NE electromyogram (EMG) Today M50.90 - Cervical disc disorder, unspecified, unspecified cervical region CT lumbar post myelography Today M51.36 - Other intervertebral disc degeneration, lumbar region Coding Level of Care Code Est Pt Level 3 (69456) Diagnoses Cervical disc disorder M50.90 Degeneration of lumbar intervertebral disc M51.36
--- OUTSIDE RECORDS SUMMARY | 2024-07-23 17:38 | XMS_ITS | Encounter Summary ---
Author Organization [facility] Address [address] [place] [address] Care Team Providers Care Superintendent Mechanical Name Role Phone Cole Kelley MD Primary Care Provider [phone] Encounter Details Date Type Department Care Team (Late st Contact Info) Description 02/08/[address] [address] [facility] [address] [place] [address] Sree Galvez MD [address] [facility] [address] [place] [address] Social History Tobacco Use Types Packs/Day Years Used Date Smoking Tobacco: Never Smokeless Tobacco: Never Alcohol Use Standard Drinks/Week Comments Not Currently 0 (1 standard drink = 0.6 oz pur e alcohol) rarely Comments No Sex and Gender Information Value Date Recorded Sex Assigned at Female 12/24/2022 6:38 PM EDT Legal Sex Female 3:40 PM EDT Gender Identity Female 12/24/2022 6:38 PM EDT Sexual Orientation Heterosexual (straight) 12/24 6:38 PM EDT documented as of this encounter Progress Notes * Anila Tapia - 02/08/2024 10:[address] Galvez sent results to patient on MyChart NO Recall EGD was noted Faxed to PCP Path Tracking Updated Patient read and reviewed results OV to be scheduled with Dr. Galvez documented in this encounter Plan of Treatment Not on file documented as of this encounter Procedures Procedure Name Priority Date/Time Associated Diagnosis Comments PATHOLOGY REPORT 02/08/2024 12:0 0 AM EST documented in this encounter Results * Pathology (02/08/2024 12:00 AM EST) us Sree Galvez MD PATHOLOGY/CYTOLOGY ORDERABLE S Final Result documented in this encounter Visit Diagnoses Not on filedocumented in this encounter Care Teams Superintendent Mechanical Relationship Specialty Start Date End Date Cole Kelley MD [address] [place] [id number] PCP - General documented as of this encounter
--- OUTSIDE RECORDS SUMMARY | 2024-07-23 17:38 | XMS_ITS | Clinical Summary ---
Author Organization [facility] Address [address] [place] [address] Care Team Providers Care Manager Aerospace Name Role Phone Jun Reyes MD Primary Care Provider Allergies Active Allergy Reactions Criticality Noted Date Comments Compazine 08/08/2017 Demerol 08/08/2017 Keflex 08/08/2017 Rizatriptan 08/08/2017 Sumatriptan 08/08/2017 Medications Lisinopril (PRINIVIL,ZESTRIL) 5 MG tablet 90 0 10/31/2016 Active Propranolol HCl CR (INDERAL LA) 160 MG 24 hr capsule 90 0 12/20/2016 Active DULoxetine HCl (CYMBALTA) 60 MG capsule 180 0 03/02/2017 Active Carbidopa-Levodopa (SINEMET) 25-100 MG per tablet 90 0 03/04/2017 Active Esomeprazole Magnesium (NexIUM) [address] capsule 90 0 03/04/2017 Active FLUTICASONE PROPIONATE, NASAL, (FT Allergy Relief 24 HR) 50 MCG/ACT nasal spray 48 0 03/04/2017 Active traZODone HCl (DESYREL) 50 MG tablet 180 0 03/23/2017 Active Gabapentin (NEURONTIN) 300 MG capsule 180 0 04/20/2017 Active Mirabegron ER (Myrbetriq) 25 MG TABLET SR 24 HR 90 0 05/16/2017 Active Norethindrone, Contraceptive, (Stormy) 0.35 MG tablet 84 0 07/19/2017 Active Active Problems Problem Noted Date Diagnosed Date Chronic maxillary sinusitis 08/08/2017 Overview (05/01/2023): Impression - [id number]: 46-year-old female with recurrent sinus infections. Her physical examination revealed widely patent sinuses without inflammation at this time. Further surgery does not appear warranted at this time. I will review her recent imaging which she will drop off for me. I am recommending she continue her Flonase and use nasal saline regularly. I am recommending a workup for an immune deficiency given the recurrent sinus and urinary tract infections. Hypertension 08/08/2017 Migraine headache 08/08/2017 Family History Medical History Relation Name Comments Cancer (?Type) Other malignant kalia plasm : Family History Hypertension Other hypertension : Family History Thyroid Disorder Other thyroid dis ease : Family History Relation Name Status Comments Other Social History Tobacco Use Types Packs/Day Years Used Date Smoking Tobacco: Never Assessed Comments:Smoking Status:Alivia simeon a smoker Comments Unknown Sex and Gender Information Value Date Recorded Sex Assigned at Not on file Legal Sex Female 5:27 PM EDT Gender Identity Not on file Sexual Orientation Not on file Last Filed Vital Signs Vital Sign Reading Time Taken Comments Blood Pressure 143/99 08/08/2017 8:55 AM EDT Pulse 102 08/08/2017 8:55 AM EDT Temperature - - Respiratory Rate - - Oxygen Saturation - - Inhaled Oxygen Concentration - - Weight - - Height - - Body Mass Index - - Plan of Treatment Health Maintenance Due Date Last Done Comments Hepatitis C Screening 1971 Pap Smear 1987 DTaP/Tdap/Td (1 - Tdap) 10/12/1989 Hep B (1 of 3 - 19+ 3-dose series) 10/12/1990 Mammogram/Breast Imaging 2011 Pneumococcal 50+ years (1 of 1 - PCV) 10/12/2021 Zoster (Shingrix) (1 of 2) 10/12/2021 COVID-19 Vaccine ( - 2023-2 5 season) 2023 Influenza (#1) 2023 HPV Vaccine Aged Out No longer eligi ble based on patient's age to complete this topic Hep A Aged Out No longer eligi ble based on patient's age to complete this topic Hib Aged Out No longer eligi ble based on patient's age to complete this topic Meningococcal ACWY Aged Out No longer eligible based on patient's age to complete this topic Care Teams Manager Aerospace Relationship Specialty Start Date End Date Jun Reyes MD [address] [address] [facility] - General 11/01/22
--- OUTSIDE RECORDS SUMMARY | 2024-07-23 17:38 | XMS_ITS | Clinical Summary ---
Author Organization [facility] Address [address] [place] [address] Care Team Providers Care Medical Care Administrator Name Role Phone Cole Santana MD Primary Care Provider [phone] Surgical History Surgery Date Site/Laterality Comments OTHER SURGICAL HISTORY PROCEDURE:hemmeroidectomy HYSTERECTOMY PROCEDURE:HYSTERECTOMY SALIVARY GLAND SURGERY PROCEDURE:SALIVARY GLAND SURGERY THYROID SURGERY PROCEDURE:THYROID SURGERY OTHER SURGICAL HISTORY PROCEDURE:inspire surgery (sleep apnea) Medical History Medical History Date Comments Sleep apnea DX:Sleep apnea IBS (irritable bowel syndrome) D X:IBS (irritable bowel syndrome) Fibromyalgia DX:Fibromyalgia Migraine DX:Migraine Hypertension DX:Hypertension Kidney stones DX:Kidney stones S/P Botox injection 04/2016 DX:S/P Botox injection Thyroid cancer (CMS/HCC V24, CMS/HCC V28) DX:Thyroid cancer (HCC) Thyroid cancer (CMS/HCC V24, CMS/HCC V28) DX:Thyroid cancer (HCC) Cancer of parotid gland (CMS /HCC V24, CMS/HCC V28) DX:Cancer of parotid gland ( HCC) Anxiety DX:Anxiety Family History Medical History Relation Name Comments Cancer Father Heart disease Father Cancer Mother Early Neg Hx Relation Name Status Comments Father Alive Mother Alive Social History Tobacco Use Types Packs/Day Years Used Date Smoking Tobacco: Never Smokeless Tobacco: Never Alcohol Use Standard Drinks/Week Comments Yes 0 (1 standard drink = 0.6 oz pur e alcohol) Comments Unknown Sex and Gender Information Value Date Recorded Sex Assigned at Not on file Legal Sex Female 8:13 PM EST Gender Identity Not on file Sexual Orientation Not on file Obstetrics History Last Filed Vital Signs Vital Sign Reading Time Taken Comments Blood Pressure 136/90 05/28/2021 12:20 PM EST Pulse - - Temperature - - Respiratory Rate - - Oxygen Saturation - - Inhaled Oxygen Concentration - - Weight - - Height - - Body Mass Index - - Plan of Treatment Health Maintenance Due Date Last Done Comments Breast Cancer Screening 1971 DTaP,Tdap,and Td Vaccines (1 - Tdap) 10/12/1990 Hepatitis B Vaccines (1 of 3 - 19+ 3-dose series) 10/12/1990 Cervical Cancer Screening: P ap Smear 10/12/1992 Pneumococcal Vaccine: 50+ Ye ars (1 of 1 - PCV) 10/12/2021 Zoster Vaccines (1 of 2) 10/12/2021 Colorectal Cancer Screening: Colonoscopy 02/27/2022 Depression Screening 02/27/2022 HIV Screening 02/27/2022 Hepatitis C Screening 02/27/2022 Social Influencers of Health Screening 02/27/2022 COVID-19 Vaccine ( - 2023-2 5 season) 2023 Influenza Vaccine (Season Ended) 2024 HIB Vaccines Aged Out No longer eligi ble based on patient's age to complete this topic HPV Vaccines Aged Out No longer eligi ble based on patient's age to complete this topic Hepatitis A Vaccines Aged Out No long er eligible based on patient's age to complete this topic IPV Vaccines Aged Out No longer eligi ble based on patient's age to complete this topic MMR Vaccines Aged Out No longer eligi ble based on patient's age to complete this topic Meningococcal ACWY Vaccine Aged Out N o longer eligible based on patient's age to complete this topic Meningococcal B Vaccine Aged Out No l onger eligible based on patient's age to complete this topic Pneumococcal Vaccine: Pediat rics (0 to 5 Years) and At-Risk Patients (6 to 64 Years) Aged Out No longer eligible b ased on patient's age to complete this topic RSV Immunization Patients Un violet 20 months Aged Out No longer eligible b ased on patient's age to complete this topic Varicella Vaccines Aged Out No longer eligible based on patient's age to complete this topic Care Teams Medical Care Administrator Relationship Specialty Start Date End Date Cole Santana MD PCP - General Editor Trade Journal 01/03/15
--- OUTSIDE RECORDS SUMMARY | 2024-07-23 17:38 | XMS_ITS | Patient Health Record ---
Author Organization [facility] Address [address] [place] [address] Care Team Providers Care Sand Hauler Name Role Phone Ronald Rea Primary Care [...] OF KASSANDRA Rush/LOGAN Mey[employer] BCBS [address] [place], [place] [id number] [phone] Reena Kam Self - patient is the insured BS OF [place]/OUT OF PLAN [address] [place], [place] [id number] [phone] [id number] Reena Kam Self - patient is the insured
--- OUTSIDE RECORDS SUMMARY | 2024-07-23 17:38 | XMS_ITS | Clinical Summary ---
Author Organization [facility] Address [address] [place] [address] Care Team Providers Care Promotions Associate Name Role Phone Cole Kelley MD Primary Care Provider [phone] Allergies Active Allergy Reactions Criticality Noted Date Comments Naratriptan Swelling High 01/03/2015 Diphenhydramine Other (See Comments) 07/19/2019 Makes her hyper Jumping under her skin. Prochlorperazine Anaphylaxis High 01/03/2015 Meperidine Other (See Comments) 01/03/2015 hallucinations Doxycycline 08/05/2017 Droperidol Anaphylaxis High 01/03/2015 Sumatriptan Anaphylaxis High 01/03/2015 Cephalexin Anaphylaxis High 01/03/2015 Rizatriptan Anaphylaxis High 01/03/2015 Promethazine Anaphylaxis High 01/03/2015 Metoclopramide Anaphylaxis High 01/03/2015 Medications Medication Sig Dispensed Refills Start Date End Date Status propranolol (INDERAL) 80 MG tablet Take 2 tablets (160 mg total) by mouth daily. 0 Active Mirabegron ER (MYRBETRIQ) 25 MG TB24 24 hr tablet Take 1 tablet (25 mg total) by mouth daily. 0 Active gabapentin (NEURONTIN) 300 MG capsule Take 1 capsule (300 mg total) by mouth every night at bedtime. 30 capsule 0 10/24/2018 Active levothyroxine (SYNTHROID, LEVOXYL) tablet 25 mcg Take 1 tablet (25 mcg total) by mouth every morning on an empty stomach. 30 tablet 0 10/25/2018 Active Additional Information Patient taking differently: 37.5 mcgOral Every Morning on an empty stomach, Reason: Not effective, Reported on 12/19/2023 traZODone (DESYREL) 50 MG tablet 0 04/09/2020 Active LORazepam (ATIVAN) 0.5 MG tablet TAKE 1 TABLET BY MOUTH TWICE A DAY NEEDED 0 05/19/2020 Active Estradiol 10 MCG TABS estradiol 10 mcg vaginal tablet 0 Active DULoxetine (CYMBALTA) DR capsule 60 mg Take 1 capsule (60 mg total) by mouth daily. 0 Active lubiprostone (AMITIZA) 24 MCG capsule Take 1 capsule (24 mcg total) by mouth 2 (two) times a day with meals. 0 Active pantoprazole (Protonix) 40 MG tablet Take 1 tablet (40 mg total) by mouth every morning on an empty stomach. 0 Active ferrous sulfate 325 (65 FE) MG tablet Take 1 tablet (325 mg total) by mouth every morning with breakfast. 30 tablet 3 12/21/2023 Active hydrocortisone 1 % cream Apply topically 2 (two) times a day. 30 g 1 12/20/2023 Active polyethylene glycol (MIRALAX) 17 g packet Take 17 g by mouth daily. 14 each 0 12/21/2023 Active senna (SENOKOT) 8.6 MG tablet Take 1 tablet by mouth every night at bedtime. 30 tablet 2 12/20/2023 Active Active Problems Problem Noted Date Diagnosed Date Rash 12/19/2023 Fever 12/19/2023 Other chest pain 04/07/2021 Migraine aura, persistent, i ntractable, with status migrainosus 11/01/2019 Renal colic, bilateral 07/03/2017 Dehydration 07/03/2017 Acute cystitis without hematuria 07/03/2017 Resolved Problems Problem Noted Date Diagnosed Date Resolved Date Colitis 10/22/2018 10/24/2018 Family History Medical History Relation Name Comments Cancer Father Heart disease Father Cancer Mother Early Neg Hx Relation Name Status Comments Father Alive Mother Alive Social History Tobacco Use Types Packs/Day Years Used Date Smoking Tobacco: Never Smokeless Tobacco: Never Alcohol Use Standard Drinks/Week Comments Yes 0 (1 standard drink = 0.6 oz pur e alcohol) Rarely Sex and Gender Information Value Date Recorded Sex Assigned at Female 05/24/2019 7:32 PM EST Gender Identity Female 06/10/2020 4:02 AM EDT Sexual Orientation Not on file Job Start Date Occupation Industry Not on file Not on file Not on file Last Filed Vital Signs Vital Sign Reading Time Taken Comments Blood Pressure 113/75 12/20/2023 7:26 AM EDT Pulse 74 12/20/2023 7:26 AM EDT Temperature 36.9 ??C (98.5 ??F) 12/20/2023 7:26 AM ED T Respiratory Rate 16 12/20/2023 7:26 AM EDT Oxygen Saturation 97% 12/20/2023 7:26 AM EDT Inhaled Oxygen Concentration - - Weight 73.5 kg (162 lb) 12/19/2023 4:18 AM EDT Height 152.4 cm (5') 12/19/2023 4:18 AM EDT Body Mass Index 31.64 12/19/2023 4:18 AM EDT Plan of Treatment Health Maintenance Due Date Last Done Comments Hepatitis B Vaccines (1 of 3 - 3-dose series) 1971 Hepatitis C Screening 1971 Depression Screening 1983 BMI Counseling 10/12/1989 Preventative Health Evaluation 10/12/1989 DTap / Tdap / Td (1 - Tdap) 10/12/1990 Cervical Cancer Screening (Pap Smear) 10/12/1992 Colon Cancer Screening (Colonoscopy) 10/12/2016 Breast Cancer Screening (Mammogram) 10/12/2021 Shingrix-Zoster Vaccine (2 of 2) 02/03/2023 12/09/2022 COVID-19 Vaccine (2 - season) 2023 08/21/2020 Influenza Vaccine (#1) 2023 , 02/16/2022, 02/05/2021, Additional history exists Pneumococcal Vaccine Aged Out 12/04/2014 No long er eligible based on patient's age to complete this topic RSV Ped < 20 months Aged Out No longe r eligible based on patient's age to complete this topic Advance Directives For more information, please contact: [phone] Documents on File Type Date Recorded Patient Head Swamper Expl anation Power of Vice Investigator 07/11/2023 7:25 PM Advance Directive and Living Will 01/13/2016 2:00 PM Latest Code Status on File Code Status Date Activated Date Inactivated Comments Full Code 12/19/2023 3:43 AM 12/20/2023 6:04 PM This code status was ascertained in the following way: TBD . Code Status History Code Status Date Activated Date Inactivated Comments Full Code 10/31/2019 8:39 AM 11/01/2019 7:54 PM Full Code 10/22/2018 2:41 PM 10/24/2018 4:20 PM This code status was ascertained in the following way: discussion with patient . Full Code 07/03/2017 7:37 PM 07/05/2017 8:02 PM This c ode status was ascertained in the following way: discussion with patient . Care Teams Promotions Associate Relationship Specialty Start Date End Date Cole Kelley MD [address] [place] [id number] PCP - General Group Work Program Director 01/03/15
--- OUTSIDE RECORDS SUMMARY | 2024-07-23 17:38 | XMS_ITS | Clinical Summary ---
Author Organization [facility] Address [address] [place] [address] Care Team Providers Care Conveyor Console Operator Name Role Phone Cole Kelley MD Primary Care Provider [phone] Allergies Active Allergy Reactions Criticality Noted Date Comments Cephalexin Anaphylaxis,Rash/Stefan m atitis High 06/27/2012 Diphenhydramine Anxiety,Other (See Comments) Low 11/08/2016 Makes her hyper Jumping under her skin. Doxycycline Other (See Comments) 11/08/2016 I got C.Diff. Droperidol Anaphylaxis High 01/03/2015 Meperidine Anxiety,Other (See Comments) Low 10/01/2004 unknown hallucinations Metoclopramide Anaphylaxis,Unknown/ P atient and Family Unable to Define High 10/01/2004 Naratriptan Anaphylaxis,Swelling High 01/03/2015 Oxycodone-Acetaminophen Hives Medium 06/27/2012 Prochlorperazine Anaphylaxis,Unknown/ P atient and Family Unable to Define High 10/01/2004 Promethazine Anaphylaxis,Rash/Stefan m atitis High 10/01/2004 Rizatriptan Anaphylaxis,Unknown/ P atient and Family Unable to Define High 10/01/2004 Sumatriptan Anaphylaxis,Unknown/ P atient and Family Unable to Define High 10/01/2004 Vancomycin Swelling,Fever High 02/02/2024 Medications cyanocobalamin (VITAMIN B-12) 1000 MCG/ML injection Inject under the skin every 30 days (once a month). 3 Active cyclobenzaprine (FLEXERIL) 10 MG tablet Take by mouth as needed. 3 Active Trudhesa 0.725 MG/ACT Aero Soln 3 Active DULoxetine (CYMBALTA) 60 MG capsule Take by mouth daily. 3 Active estradiol (VIVELLE-DOT) 0.025 MG/24HR external patch Place 1 patch on the skin 2 (two) times a week. 3 Active fluticasone (FloNASE) 50 mcg/spray nasal spray into each nostril daily. Active gabapentin (NEURONTIN) 300 MG capsule Take 600 mg by mouth 3 (three) times a day. Active ketorolac (TORADOL) 30 MG/ML injection ONE ML TO BE INJECTED AT ONSET OF MIGRAINE. NOT TO BE REPEATED FOR 24 HOURS 3 Active Lactobacillus (Acidophilus) 100 MG Cap Take 300 mg by mouth daily. Active levothyroxine (SYNTHROID, LEVOTHROID) 25 MCG tablet Take 25 mcg by mouth every morning. Active lisinopril (PRINIVIL,ZeSTRIL) 10 MG tablet Take 10 mg by mouth daily. Active LORazepam (ATIVAN) 0.5 MG tablet Take 0.5 mg by mouth 2 (two) times a day as needed. 3 Active ondansetron (ZOFRAN-ODT) 8 MG disintegrating tablet TAKE 1 TABLET AT ONSET OF NAUSEA MAY REPEAT IN 12 HOURS 3 Active traZODone (DESYREL) 50 MG tablet Take by mouth. 3 Active Ubrelvy 100 MG tablet Take by mouth once as needed. 3 Active amLODIPine (NORVASC) 5 MG tablet Take by mouth daily. 4 Active chlorthalidone (HYGROTON) 25 MG tablet Take by mouth daily. 4 Active PANTOprazole (PROTONIX) 40 MG EC tablet Take 40 mg by mouth daily. 4 Active metoPROLOL SUCCINATE (TOPROL-XL) 50 MG 24 hr tablet Take 50 mg by mouth daily. Active Active Problems Problem Noted Date Diagnosed Date Screening for colon cancer 10/06/2023 Assessment & Plan (10/06/2023 3:14 PM EDT): Adenoma carcinoma sequence discussed High fiber diet Last colon: 2014 - normal 2 day prep due to constipation A colonoscopy will be scheduled based on current indication. The indications, prep, alternatives and the procedure were thoroughly explained. There is no contraindication to colonoscopy. All questions were answered. The potential risks including but not limited to bleeding, infection, and perforation were also explained. Gastroesophageal reflux disease 10/06/2023 Assessment & Plan (10/06/2023 3:11 PM EDT): Symptomatic on pantoprazole, recent switched from nexium More night time symptoms for past several months, sent in by pcp for egd Will plan for EGD to evaluate for mucosal disease and to evaluate the extent of reflux, parsons's, bx for h. Pylori and celiac. Consider increasing ppi to bid pending results. Avoid/limit tobacco, alcohol, chocolate, peppermint, caffeine, greasy foods, spicy foods, and acidic foods such as citrus and tomato. Eat smaller, more frequent meals, and do not eat within 2 hours of bedtime. If you have night-time symptoms, elevate the head of the bed 6 to 12 inches. Handout provided. Irritable bowel syndrome with constipation 10/05 Assessment & Plan (10/06/2023 3:10 PM EDT): Had tried linzess in past, but did not work Willl start amitiza 24mcg bid Discussed patients diet and suggested changes, such as, increasing fiber with more fruits, veggies, or supplements. Pt should also increase fluid intake to at least 60 oz of water or water based drinks daily. We discussed different pharmaceutical options and their risks, benefits, and how to correctly take them and stay consistent. Social History Tobacco Use Types Packs/Day Years Used Date Smoking Tobacco: Never Smokeless Tobacco: Never Tobacco Cessation:Counseling Given: Not Answered Alcohol Use Standard Drinks/Week Comments Not Currently 0 (1 standard drink = 0.6 oz pur e alcohol) rarely Comments No Sex and Gender Information Value Date Recorded Sex Assigned at Female 12/24/2022 6:38 PM EDT Legal Sex Female 3:40 PM EDT Gender Identity Female 12/24/2022 6:38 PM EDT Sexual Orientation Heterosexual (straight) 12/24 6:38 PM EDT Last Filed Vital Signs Vital Sign Reading Time Taken Comments Blood Pressure 114/76 02/08/2024 11:31 AM EST Pulse 80 02/08/2024 11:31 AM EST Temperature 36.3 ??C (97.4 ??F) 02/08/2024 11:[address] Respiratory Rate 18 02/08/2024 11:31 AM EST Oxygen Saturation 100% 02/08/2024 11:31 AM EST Inhaled Oxygen Concentration - - Weight 63.5 kg (140 lb) 02/08/2024 10:15 AM EST Height 152.4 cm (5') 02/08/2024 10:15 AM EST Body Mass Index 27.34 02/08/2024 10:15 AM EST Plan of Treatment Health Maintenance Due Date Last Done Comments Hepatitis C Virus Screening 1971 HIV Screening 10/12/1984 DTaP/Tdap/Td Vaccines (1 - Tdap) 10/12/1990 Hepatitis B Vaccines (1 of 3 - 19+ 3-dose series) 10/12/1990 Pap Smear (Ages 21-65) 10/12/1992 Mammogram 2011 Pneumococcal Vaccines 50+ (1 of 1 - PCV) 10/12/2021 Zoster (Shingles) Vaccine (1 of 2) 10/12/2021 Influenza Vaccine 10/27/2023 12/09/2022, , 01/04/2019, Additional history exists COVID-19 Vaccine (2 - 2023-2 5 season) 2023 08/21/2020 Colonoscopy 02/07/2029 02/08/2024 Insurance MEDICARE PART A BLUE CROSS OUT OF STATE - PPO BLUE CROSS OUT OF [facility] MEDICARE PART A BLUE CROSS OUT OF [facility] - PPO Care Teams Conveyor Console Operator Relationship Specialty Start Date End Date Cole Kelley MD [address] [place] [address] [address] [place] [address] PCP - General
--- OUTSIDE RECORDS SUMMARY | 2024-07-23 17:38 | XMS_ITS ---
Author Name [facility] Organization Unknown Results Test Name/Text Value Interpretation Date Range Source MAGNESIUM SERPL [facility] 2mg/dL Normal 1.7 - 2.8 [facility] CREAT SERPL [facility] 0.6mg/dL Normal [id number] 0.5 - 1 [facility] GLUCOSE SERPL [facility] 119mg/dL Normal 70 - 199 [facility] Glomerular filtration rate/1.73 sq M. predicted 108 Normal [id number] 60 - [facility] BUN SERPL [facility] 7mg/dL Normal 7 - 17 [facility] CHLORIDE SERPL SCNC 104mmol/L Normal [id number] 98 - 10 7 [facility] CALCIUM SERPL [facility] 8.5mg/dL Normal [id number] 8.4 - 10 .2 [facility] ANION GAP SERPL SCNC 5mmol/L Normal [id number] 5 - 14 [facility] HCO3 SER SCNC 28mmol/L Normal [id number] 24 - 32 [facility] SODIUM SERPL [facility] 137mmol/L Normal [id number] 135 - 145 [facility] POTASSIUM SERPL SCNC 3.5mmol/L Normal [id number] 3.5 - 5.1 [facility] MCH RBC QN AUTO 29.3pg Normal [id number] 25 - 33 [facility] PMV BLD AUTO 8.6fL Normal [id number] 7.4 - 11.4 [facility] MONOCYTES NO. BLD AUTO 0.2K/uL Normal [id number] 0 - 0.8 [facility] PLATELET NO. BLD AUTO 356K/uL Normal [id number] 150 - 450 [facility] LYMPHOCYTES NFR BLD AUTO 10.7% Below low normal [id number] 20 - 48 [facility] NUCLEATED RBC 0% Normal 0 - 1 [facility] HGB BLD [facility]NC 8.5g/dL Below low normal [id number] 12.5 - 16 [facility] BASOPHILS IN BLOOD BY AUTOMATED COUNT 0K/uL Normal 0 - 0.2 [facility] IMMATURE GRANULOCYTE, ABSOLUTE 0.05k/uL Normal [id number] - 0.1 [facility] EOSINOPHIL NO. BLD AUTO 0.1K/uL Normal 0 - 0.5 [facility] NEUTROPHILS NO. BLD AUTO 5.7K/uL Normal 1.8 - 7.8 [facility] MONOCYTES NFR BLD AUTO 2.2% Normal 2 - 12 [facility] RBC NO. BLD AUTO 2.9M/uL Below low normal 4.2 - 5.4 [facility] HCT VFR BLD AUTO 26.7% Below low normal 37 - 47 [facility] BASOPHILS NFR BLD AUTO 0.3% Normal 0 - 2 [facility] NEUTROPHILS NFR BLD AUTO 85.4% Above high normal 44 - 74 [facility] IMMATURE GRANULOCYTE, PERCENT 0.7% Normal 0 - 1 [facility] EOSINOPHIL NFR BLD AUTO 0.7% Normal 0 - 6 [facility] WBC NO. BLD AUTO 6.7K/uL Normal 4 - 10.5 [facility] RDW RBC AUTO RTO 14.5% Normal 12.1 - 16. 2 [facility] MCV RBC AUTO 92.1fL Normal [id number] 78 - 100 [facility] RBC AUTO [facility] 31.8g/dL Below low normal 3 2 - 36 [facility] LYMPHOCYTES NO. BLD AUTO 0.7K/uL Below low normal 1 - 3.2 [facility] MAGNESIUM SERPL [facility] 2.1mg/dL Normal 1.7 - 2.8 [facility] ESR Bld Qn Photometric 20mm/h Normal [id number] 0 - 20 [facility] CHLORIDE SERPL [facility] 105mmol/L Normal [id number] 98 - 10 7 [facility] Glomerular filtration rate/1.73 sq M. predicted 108 Normal [id number] 60 - [facility] SODIUM SERPL SCNC 139mmol/L Normal [id number] 135 - 145 [facility] POTASSIUM SERPL SCNC 3.9mmol/L Normal [id number] 3.5 - 5.1 [facility] CREAT SERPL [facility] 0.6mg/dL Normal [id number] 0.5 - 1 [facility] GLUCOSE SERPL [facility] 127mg/dL Normal [id number] 70 - 199 [facility] CALCIUM SERPL [facility] 8.5mg/dL Normal [id number] 8.4 - 10 .2 [facility] BUN SERPL [facility] 10mg/dL Normal [id number] 7 - 17 [facility] ANION GAP SERPL SCNC 5mmol/L Normal [id number] 5 - 14 [facility] HCO3 SER SCNC 29mmol/L Normal [id number] 24 - 32 [facility] FERRITIN SERPL MCNC 53ng/mL Normal [id number] 10 - 12 0 [facility] MCHC RBC AUTO MCNC 32.6g/dL Normal [id number] 32 - 36 [facility] LYMPHOCYTES NO. BLD AUTO 0.4K/uL Below low normal [id number] 1 - 3.2 [facility] BASOPHILS NFR BLD AUTO 0.1% Normal [id number] 0 - 2 [facility] PLATELET NO. BLD AUTO 323K/uL Normal [id number] 150 - 450 [facility] EOSINOPHIL NFR BLD AUTO 0.2% Normal [id number] 0 - 6 [facility] MCH RBC QN AUTO 29.7pg Normal [id number] 25 - 33 [facility] LYMPHOCYTES NFR BLD AUTO 5.1% Below low normal [id number] 20 - 48 [facility] IMMATURE GRANULOCYTE, PERCENT 0.6% Normal [id number] 0 - 1 [facility] WBC NO. BLD AUTO 8.1K/uL Normal [id number] 4 - 10.5 [facility] NEUTROPHILS NFR BLD AUTO 92.5% Above high normal [id number] 44 - 74 [facility] HGB BLD [facility] 9.2g/dL Below low normal [id number] 12.5 - 16 [facility] EOSINOPHIL NO. BLD AUTO 0K/uL Normal [id number] 0 - 0.5 [facility] RBC NO. BLD AUTO 3.1M/uL Below low normal [id number] 4.2 - 5.4 [facility] BASOPHILS IN BLOOD BY AUTOMATED COUNT 0K/uL Normal [id number] 0 - 0.2 [facility] NEUTROPHILS NO. BLD AUTO 7.5K/uL Normal [id number] 1.8 - 7.8 [facility] RDW RBC AUTO RTO 14.4% Normal [id number] 12.1 - 16. 2 [facility] NUCLEATED RBC 0% Normal [id number] 0 - 1 [facility] MONOCYTES NO. BLD AUTO 0.1K/uL Normal [id number] 0 - 0.8 [facility] IMMATURE GRANULOCYTE, ABSOLUTE 0.05k/uL Normal [id number] - 0.1 [facility] PMV BLD AUTO 8.3fL Normal [id number] 7.4 - 11.4 [facility]TT [facility] HCT VFR BLD AUTO 28.2% Below low normal [id number] 37 - 47 [facility] MCV RBC AUTO 91fL Normal [id number] 78 - 100 [facility] MONOCYTES NFR BLD AUTO 1.5% Below low normal [id number] 2 - 12 [facility] CRP SERPL [facility] 5.3mg/dL Above high normal [id number] - 0. 9 [facility] UIBC SERPL [facility] 263ug/dL Normal [id number] 155 - 355 [facility] IRON SERPL [facility] 13mcg/dL Below low normal [id number] 37 - 170 [facility] TIBC SERPL [facility] 276ug/dL Normal [id number] 250 - 450 [facility] IRON SATN MFR SERPL 5% Below low normal [id number] 20 - 45 [facility] Ketones Ur Ql Strip.auto NEGATIVE Normal - [facility] Prot Ur Ql Strip.auto NEGATIVE Normal [id number] - [facility] pH Ur Strip.auto 7 Normal [id number] 4.5 - 8 [facility] Sp Gr Ur Strip.auto 1.01 Normal [id number] 1.005 - 1.03 [facility] Glucose Ur Ql Strip.auto NEGATIVE Normal [id number] - [facility] Clarity Ur Refract.auto CLEAR Normal [facility] Nitrite Ur Ql Strip.auto NEGATIVE Normal - [facility] Hgb Ur Ql Strip.auto NEGATIVE Normal - [facility] Leukocyte esterase Ur Ql Strip.auto NEGATIVE Normal [id number] - [facility] SPECIMEN SOURCE XXX URINE CLEAN CATCH Normal [facility] AMYLASE SERPL [facility] 16U/L Below low normal [id number] 2 9 - 103 [facility] BILIRUB SERPL [facility] 0.3mg/dL Normal [id number] 0.3 - 1 [facility] BILIRUB DIRECT SERPL [facility] 0mg/dL Normal [id number] 0 - 0.2 [facility] ALP SERPL-CCNC 84U/L Normal [id number] 34 - 104 [facility] AST SERPL [facility] 22U/L Normal [id number] 5 - 40 [facility] LDH SERPL L TO P CCNC 326U/L Above high normal [id number] 125 - 220 [facility] ALT SERPL [facility] 15U/L Normal [id number] 7 - 52 [facility] LACTATE SERPL [facility]NC 0.7mmol/L Normal [id number] 0.5 - 2 [facility] WBC NO. BLD AUTO 10K/uL Normal [id number] 4 - 10.5 [facility] MCH RBC QN AUTO 29.3pg Normal [id number] 25 - 33 [facility] NUCLEATED RBC 0% Normal [id number] 0 - 1 [facility] LYMPHOCYTES NFR BLD AUTO 7.5% Below low normal [id number] 20 - 48 [facility] RDW RBC AUTO RTO 13.9% Normal [id number] 12.1 - 16. 2 [facility] RBC NO. BLD AUTO 3.38M/uL Below low normal [id number] 4.2 - 5.4 [facility] NEUTROPHILS NO. BLD AUTO 8.8K/uL Above high normal [id number] 1.8 - 7.8 [facility] IMMATURE GRANULOCYTE, ABSOLUTE 0.04k/uL Normal [id number] - 0.1 [facility] IMMATURE GRANULOCYTE, PERCENT 0.4% Normal [id number] 0 - 1 [facility] HCT VFR BLD AUTO 30.2% Below low normal [id number] 37 - 47 [facility] MONOCYTES NO. BLD AUTO 0.3K/uL Normal [id number] 0 - 0.8 [facility] BASOPHILS IN BLOOD BY AUTOMATED COUNT 0K/uL Normal [id number] 0 - 0.2 [facility] HGB BLD MCNC 9.9g/dL Below low normal 12.5 - 16 [facility] EOSINOPHIL NFR BLD AUTO 0.7% Normal [id number] 0 - 6 [facility] PMV BLD AUTO 8.4fL Normal [id number] 7.4 - 11.4 [facility] LYMPHOCYTES NO. BLD AUTO 0.8K/uL Below low normal [id number] 1 - 3.2 [facility] MCHC RBC AUTO MCNC 32.8g/dL Normal [id number] 32 - 36 [facility] NEUTROPHILS NFR BLD AUTO 88% Above high normal [id number] 44 - 74 [facility] MCV RBC AUTO 89.3fL Normal [id number] 78 - 100 [facility] BASOPHILS NFR BLD AUTO 0.1% Normal [id number] 0 - 2 [facility] MONOCYTES NFR BLD AUTO 3.3% Normal [id number] 2 - 12 [facility] PLATELET NO. BLD AUTO 408K/uL Normal [id number] 150 - 450 [facility] EOSINOPHIL NO. BLD AUTO 0.1K/uL Normal [id number] 0 - 0.5 [facility] POTASSIUM SERPL [facility] 3.9mmol/L Normal [id number] 3.5 - 5.1 [facility] SODIUM SERPL SCNC 131mmol/L Below low normal [id number] 13 5 - 145 [facility] CHLORIDE SERPL SCNC 96mmol/L Below low normal [id number] 98 - 107 [facility] ANION GAP SERPL SCNC 6mmol/L Normal [id number] 5 - 14 [facility] HCO3 SER SCNC 29mmol/L Normal [id number] 24 - 32 [facility] CALCIUM SERPL MCNC 9.1mg/dL Normal [id number] 8.4 - 10 .2 [facility] CREAT SERPL MCNC 0.7mg/dL Normal [id number] 0.5 - 1 [facility] BUN SERPL MCNC 13mg/dL Normal [id number] 7 - 17 [facility] GLUCOSE SERPL MCNC 109mg/dL Normal [id number] 70 - 199 [facility] Glomerular filtration rate/1.73 sq M. predicted 104 Normal [id number] 60 - [facility] LIPASE SERPL [facility] 6U/L Below low normal [id number] 11 - 82 [facility] Troponin I SerPl HS-mCnc 4ng/L Normal [id number] 0 - 14 [facility] BILIRUB DIRECT SERPL MCNC 0.1mg/dL Normal 0 - 0.2 [facility] BILIRUB SERPL MCNC 0.3mg/dL Normal 0.3 - 1 [facility] MONOCYTES NO. BLD AUTO 0.3K/uL Normal [id number] 0 - 0.8 [facility] HCT VFR BLD AUTO 39% Normal 37 - 47 [facility] PMV BLD AUTO 9fL Normal [id number] 7.4 - 11.4 [facility] NUCLEATED RBC 0% Normal 0 - 1 [facility] RBC NO. BLD AUTO 4.42M/uL Normal 4.2 - 5.4 [facility] MONOCYTES NFR BLD AUTO 6.7% Normal [id number] 2 - 12 [facility] NEUTROPHILS NFR BLD AUTO 57.6% Normal [id number] 44 - 74 [facility] LYMPHOCYTES NFR BLD AUTO 32.6% Normal [id number] 20 - 48 [facility] HGB BLD MCNC 12.9g/dL Normal [id number] 12.5 - 16 [facility] IMMATURE GRANULOCYTE, ABSOLUTE 0.01k/uL Normal [id number] - 0.1 [facility] BASOPHILS NFR BLD AUTO 0.9% Normal [id number] 0 - 2 [facility] EOSINOPHIL NO. BLD AUTO 0.1K/uL Normal [id number] 0 - 0.5 [facility] PLATELET NO. BLD AUTO 212K/uL Normal [id number] 150 - 450 [facility] WBC NO. BLD AUTO 4.5K/uL Normal [id number] 4 - 10.5 [facility] LYMPHOCYTES NO. BLD AUTO 1.5K/uL Normal [id number] 1 - 3.2 [facility] EOSINOPHIL NFR BLD AUTO 2% Normal 0 - 6 [facility] IMMATURE GRANULOCYTE, PERCENT 0.2% Normal [id number] 0 - 1 [facility] MCV RBC AUTO 88.2fL Normal [id number] 78 - 100 [facility] BASOPHILS IN BLOOD BY AUTOMATED COUNT 0K/uL Normal [id number] 0 - 0.2 [facility] RDW RBC AUTO RTO 12.8% Normal [id number] 12.1 - 16. 2 [facility] MCH RBC QN AUTO 29.2pg Normal [id number] 25 - 33 [facility] NEUTROPHILS NO. BLD AUTO 2.6K/uL Normal [id number] 1.8 - 7.8 [facility] MCHC RBC AUTO MCNC 33.1g/dL Normal [id number] 32 - 36 [facility] LIPASE SERPL CCNC 23U/L Normal [id number] 11 - 82 [facility] Troponin I SerPl HS-mCnc 4ng/L Normal [id number] 0 - 14 [facility] GLUCOSE SERPL MCNC 98mg/dL Normal [id number] 70 - 199 [facility] SODIUM SERPL SCNC 138mmol/L Normal [id number] 135 - 145 [facility] CREAT SERPL MCNC 0.7mg/dL Normal [id number] 0.5 - 1 [facility] ANION GAP SERPL SCNC 5mmol/L Normal [id number] 5 - 14 [facility] BUN SERPL MCNC 15mg/dL Normal [id number] 7 - 17 [facility] Glomerular filtration rate/1.73 sq M. predicted 105 Normal [id number] 60 - [facility] POTASSIUM SERPL SCNC 4mmol/L Normal [id number] 3.5 - 5.1 [facility] CHLORIDE SERPL SCNC 104mmol/L Normal [id number] 98 - 10 7 [facility] CALCIUM SERPL MCNC 9.4mg/dL Normal [id number] 8.4 - 10 .2 [facility] HCO3 SER SCNC 29mmol/L Normal [id number] 24 - 32 [facility] AMYLASE SERPL CCNC 37U/L Normal [id number] 29 - 103 [facility] BNP BLD MCNC 11pg/mL Normal [id number] 0 - 100 [facility] ALP SERPL-CCNC 69U/L Normal [id number] 34 - 104 [facility] LDH SERPL L TO P CCNC 204U/L Normal 125 - 220 [facility] ALT SERPL CCNC 12U/L Normal 7 - 52 [facility] AST SERPL CCNC 19U/L Normal 5 - 40 [facility] History of Medication Use Medication Directions Dispensed Refills Start Date End Date [facility] predniSONE (DELTASONE) tablet 20 mg Take 1 tablet (20 mg total) by mouth daily for 7 days. 12/20/2023 active senna (SENOKOT) 8.6 MG tablet Take 1 tablet by mouth every night at bedtime. 12/20/2023 active traZODone (DESYREL) tablet 50 mg 50 mg, Oral, Every Night at Bedtime, First dose on Tue12/19/23 at 2200 12/20/2023 active acetaminophen (TYLENOL) tablet 650 mg 650 mg, Oral, Every 6 hours PRN, fever, For temp > 100.4, Starting on Tue12/19/23 at 0346 12/19/2023 active DULoxetine (CYMBALTA) DR capsule 60 mg 60 mg, Oral, Daily, First dose on Tue12/19/23 at 0900 12/19/2023 active famotidine (PF) (PEPCID) injection 20 mg 20 mg, Intravenous, Every 12 hours, First dose on Tue12/19/23 at 0345Maximum IV Push dose of 40 mg. Dilute to final concentration of 4 mg/mL with 0.9% NaCl (may also use SWFI) and administer over 2 minutes. 12/19/2023 active hydrocortisone 1 % cream Apply topically 2 (two) times a day. 12/19/2023 active lactulose (CEPHULAC) 20 GM/30ML solution 20 g 20 g, Oral, 2 times daily PRN, CONSTIPATION, Starting on Tue12/19/23 at 709626 G = 30ml 12/19/2023 active oxyCODONE (ROXICODONE) 5 MG immediate release tablet 5 mg 5 mg, Oral, Every 6 hours PRN, severe pain (7-10), Starting on Tue12/19/23 at 1529 12/19/2023 active propranolol (INDERAL) tablet 80 mg 80 mg, Oral, 2 times daily, First dose (after last reorder) on Tue12/19/23 at 0930 12/19/2023 active lubiprostone (AMITIZA) 24 MCG capsule Take 1 capsule (24 mcg total) by mouth 2 (two) times a day with meals. 10/06/2023 active amLODIPine (NORVASC) 5 MG tablet Take by mouth daily. 09/30/2023 active chlorthalidone (HYGROTON) 25 MG tablet Take by mouth daily. 07/13/2023 active sodium chloride 0.9% bolus (NS) 1,000 mL 1,000 mL, Intravenous, at 1,000 mL/hr, Once, On Tue12/19/23 at 0030, For 1 dose 07/12/2023 4 completed HYDROmorphone (DILAUDID) injection 0.5 mg 0.5 mg, Intravenous, Once, On Tue07/11/23 at 2015, For 1 doseAdminister IV push over 2-3 minutes. 07/12/2023 4 completed ketorolac (TORADOL) injection 15 mg 15 mg, Intravenous, Once, On Tue07/11/23 at 2015, For 1 dose 07/12/2023 4 completed LORazepam (ATIVAN) 2 MG/ML injection 1 mg 1 mg, Intravenous, Once, On Tue07/11/23 at 2145, For 1 dose 07/12/2023 4 completed Ubrelvy 100 MG tablet 12/21/2022 active esomeprazole (NexIUM) 40 MG capsule 12/20/2022 4 aborted cyanocobalamin (VITAMIN B-12) 1000 MCG/ML injection Inject under the skin every 30 days (once a month). 12/20/2022 active propranolol (INDERAL LA) 160 MG SR capsule 11/01/2022 active ondansetron (ZOFRAN-ODT) 8 MG disintegrating tablet TAKE 1 TABLET AT ONSET OF NAUSEA MAY REPEAT IN 12 HOURS 10/22/2022 active ARIPiprazole (ABILIFY) 5 MG tablet Take 2.5 mg by mouth daily. 01/22/2021 4 aborted ketorolac (TORADOL) 30 MG/ML injection 01/16/2021 active Vyepti 100 MG/ML SOLN INFUSE VYEPTI 100MG IN 100 ML NORMAL SALINE INTRAVENOUSLY OVER 30 MINUTES EVERY 3 MONTHS STORE IN [place] PRIOR TO ADMINISTRATION 12/17/2020 4 active butalbital-acetamin ophen-caffeine (FIORICET, ESGIC) 50-325-40 MG per tablet Take 2 tablets by mouth every 6 (six) hours as needed for pain. 06/10/2020 4 active norethindrone (MICRONOR) 0.35 MG tablet 05/30/2020 4 aborted traZODone (DESYREL) 50 MG tablet 04/09/2020 suspended topiramate (TOPAMAX) 25 MG tablet Take 1 tablet (25 mg total) by mouth 2 (two) times a day. 11/01/2019 4 aborted DULoxetine (CYMBALTA) DR capsule 60 mg Take 1 capsule (60 mg total) by mouth daily. 10/24/2018 4 active esomeprazole (NexIUM) 40 MG capsule Take 40 mg by mouth. 4 active Lactobacillus (ACIDOPHILUS) 100 MG CAPS Take 300 mg by mouth. 4 active Multiple Vitamins-Minerals (MULTIVITAMIN PO) Take 1 tablet by mouth daily. 4 active Lactobacillus (Acidophilus) 100 MG Cap Take 300 mg by mouth daily. active levothyroxine (SYNTHROID, LEVOTHROID) 25 MCG tablet Take 25 mcg by mouth every morning. active lisinopril (PRINIVIL,ZeSTRIL) 10 MG tablet Take 10 mg by mouth daily. active lubiprostone (AMITIZA) 24 MCG capsule Take 1 capsule (24 mcg total) by mouth 2 (two) times a day with meals. suspended metoPROLOL SUCCINATE (TOPROL-XL) 50 MG 24 hr tablet Take 50 mg by mouth daily. active propranolol (INDERAL) 80 MG tablet Take 160 mg by mouth daily. active Problems Problem Status Onset Date Problem Type Date of Resoluti on Source Gastroesophageal reflux disease active 2023[facility]10-06 [facility] 2023-10-06 ProblemAct [facility] Irritable bowel syndrome with constipation active 2023-10-06 ProblemAct [facility] Migraine aura, persistent, intractable, with status migrainosus active 2019-11-01 ProblemAct [facility] Fever active 2023-12-19 ProblemAct [facility] Renal colic, bilateral active 2017-07-03 ProblemAct [facility] Rash active 2023-12-19 ProblemAct [facility] Other chest pain active 2021-04-07 ProblemAct [facility] Acute cystitis without hematuria active 2017-07-03 ProblemAct [facility] Dehydration active 2017-07-03 ProblemAct [facility] Encounters Encounter Type Encounter Reason Primary Diagnosis Location Date Ambulatory Encounter for screening for malignant neoplasm of colon Encounter for screening for malignant neoplasm of colon [place] [employer] [facility] 02/08/2024 Inpatient Fever, unspecified Fever, unspecified [facility] 12/18/2023 Emergency Headache, unspecified Headache, unspecified [facility] 11/16/2023 Ambulatory Encounter for screening for malignant neoplasm of colon Encounter for screening for malignant neoplasm of colon [place] [employer] [facility] 10/06/2023 Emergency Chest pain, unspecified Chest pain, unspecified [facility] 07/11/2023 Ambulatory [facility] 12/24/2022 Ambulatory Headache, unspecified Headache, unspecified [place] [employer] 12/24/2022 Care Team Organization Name Specialty Phone Email Start Date End Da te [facility] 07/12/2023 [facility] 07/12/2023 [facility] 06/26 [facility] 12/24/2022 06/14/19 [facility] 12/24/2022 12/25/19 [facility] Santana [facility] 11/02/2022 11/02/2022 [facility] 11/02/2022 [facility] 01/30/2022
== END 2024-07-23 15:43 | disposition home or self-care (01) ==
LOC: HO.HNS 14:49
PROVIDERS: PCP Internal Medicine; Visit Provider Physician Assistant
DX: M50.90 Cervical disc disorder, unspecified, unspecified cervical region (principal); M51.369 Other intervertebral disc degeneration, lumbar region without mention of lumbar back pain or lower extremity pain
CPT/HCPCS: 99213

== ENCOUNTER 2024-08-08 09:14 | Day surgery (SDC) | payer BC, SELFPAY ==
[2024-08-08] VITALS (8 sets, daily range): BP systolic 121–131; BP diastolic 74–81; PULSE 61–74; RESP 16–18; TEMP 36.2–36.8; O2SAT 95–99; BMI 27.9
--- NOTE | ~2024-08-08 | FL_ITS ---
EXAMINATION: IR LUMBAR MYELOGRAPHY CLINICAL INFORMATION: DEGENERATION OF LUMBAR INTERVERTEBRAL DISC COMPARISON: None available. TECHNIQUE: Informed consent was obtained from the patient. Timeout was performed. Using fluoroscopic guidance, the L2-3 interlaminar space was identified, marked, and the skin prepped and draped in sterile fashion. Skin and subcutaneous tissues were anesthetized with 1% lidocaine. Subsequently, a 20-gauge Quincke spinal needle was advanced into the thecal sac, and clear CSF was noted at the needle hub. At this point, 10 mL of Isovue 300 iodinated contrast was injected into the thecal sac under direct fluoroscopic guidance. The patient tolerated the procedure well. There were no immediate complications. 2 fluoroscopic spot images obtained. FLUOROSCOPY TIME: 35 seconds DOSE AREA PRODUCT: 890 uGy-m2 (microgray-meter squared) FL/FL myelogram spine lumbosacral IMPRESSION: 1. Successful administration of dilute intrathecal iodinated contrast at the L2-3 interlaminar level. The patient will undergo CT for CT myelogram. Electronically signed by: Cas Kim MD 08/08/2024 01:35 PM EDT
--- NOTE | ~2024-08-08 | CT_ITS ---
EXAMINATION: CT LUMBAR MYELOGRAM SPINE CLINICAL INFORMATION: Low back pain, radiculopathy, arthrodesis status; Other intervertebral disc degeneration, lumbar region. COMPARISON: 04/19/2023. TECHNIQUE: CT imaging of the lumbar spine was done after the intrathecal administration of dilute Omnipaque 300 contrast. Sagittal, coronal, and thin section axial reformatted images were constructed from the axial data set. This CT examination was performed using dose optimization techniques as appropriate, variously including the following: *Automated exposure control *Adjustment of mA and/or kV according to patient size (this includes techniques or standardized protocols for targeted exams where dose is matched to indication/reason for exam; i.e. extremities or head) *Use of iterative reconstruction technique FINDINGS: Unfortunately, the majority of the contrast injection was epidural, somewhat limiting the exam. It is still diagnostic, however. Small amounts of intrathecal contrast are present. CORONAL ALIGNMENT: -Minimal levoconvex scoliosis.. SAGITTAL ALIGNMENT: -Mildly exaggerated lordosis. -There is a 2 mm degenerative retrolisthesis of L3 on L4. -Sagittal alignment is otherwise anatomic. LUMBOSACRAL JUNCTION: -Transitional lumbosacral anatomy with lowest lumbar-like segment labeled as L4. There appears to be a partially sacralized L5 vertebral body. For the purposes of this report, the L5-S1 disc space is located on axial series 6, image 267. This numbering schema is in keeping with prior schema as on the prior examination. If further intervention is considered, confirmation of levels is recommended. VERTEBRAL BODIES/BONE: -There are no fractures or suspicious bone lesions. There are no compression deformity. -There has been posterior fusion of L4-5 with transpedicular screws and posterior connecting rods. Of note, the right L4 transpedicular screw appears loose with periscrew lucencies. DISCS: -There is mild disc degeneration at L3-4, moderate disc degeneration at L4-5, and a rudimentary disc present at L5-S1. SPINAL CANAL: -No abnormal developmental findings. -Conus terminates at inferior L1 level and is normal in morphology. -Nerve roots appear normally distributed within the thecal sac. No clumping identified within the confines of suboptimal contrast opacification of the thecal sac. AXIAL DISC SPACE IMAGES: T12-L1: No central canal or neural foraminal narrowing. L1-L2: No central canal or neural foraminal narrowing. Contrast is seen opacifying both exiting nerve root sheaths. L2-L3: There is a shallow disc bulge present without significant mass effect upon the thecal sac. There is no central canal stenosis. There is mild bilateral hypertrophic facet change, and mild posterior ligamentous thickening/infolding. Contrast normally opacifies both exiting nerve root sheaths. No foraminal narrowing. L3-L4: There is a trace retrolisthesis measuring 2 mm. There is a trace bulging disc, without mass effect on the thecal sac. There is no central canal narrowing. Mild left neural foraminal narrowing. Right neural foramen is patent. Contrast is opacifying both exiting nerve root sheaths. L4-L5: Posterior fusion with transpedicular screws. There is loosening of the right L4 screw. There is severe disc degeneration. There are mild to moderate hypertrophic degenerative facet changes bilaterally, with mild posterior ligamentous thickening/infolding. No significant disc bulge, and no significant central canal narrowing or subarticular recess narrowing. There is mild to moderate left and mild right neural foraminal narrowing without evidence of impingement of the exiting L4 nerve roots. L5-S1: Posterior fusion with transpedicular screws. Hardware appears well seated. Rudimentary disc at this level due to transitional lumbosacral anatomy. No disc bulge. No evidence of central canal, subarticular recess, or significant neural foraminal narrowing. IMAGED SI JOINTS: -Mild degenerative arthritis right greater than left. PARAVERTEBRAL AND INCLUDED EXTRASPINAL SOFT TISSUES: -Normal. Aorta is normal in caliber. CT/CT lumbar post myelography IMPRESSION: 1. Somewhat limited exam due to partial epidural and partial intrathecal contrast injection. Examination remains largely diagnostic, however. 2. Posterior instrumented fusion of L4-5 with transpedicular screws bilaterally and posterior connecting rods. There is PROMINENT LOOSENING of the right L4 transpedicular screw. Hardware is otherwise intact and well seated. 3. Transitional lumbosacral anatomy with sacralization of the L5 vertebral body. See numbering schema and discussion above. 4. There is no significant central canal narrowing, subarticular recess narrowing, or neural foraminal narrowing at any level. There is no evidence of nerve root impingement. Electronically signed by: Cas Kim MD 08/09/2024 08:24 AM EDT
--- OUTSIDE RECORDS SUMMARY | 2024-08-08 09:45 | XMS_ITS | Encounter Summary ---
Author Organization [facility] Address [address] [place] [address] Care Team Providers Care Clinical Registered Nurse Name Role Phone Cole Kelley MD Primary Care Provider [phone] Encounter Details Date Type Department Care Team (Late st Contact Info) Description 02/08/[address] [address] [facility] [address] [place] [address] Sree Galvez MD [address] [facility] [address] [place] [address] Social History Tobacco Use Types Packs/Day Years [...] Tapia - 02/08/2024 10:[address] Gavlez sent results to patient on MyChart NO [...] on filedocumented in this encounter Care Teams Clinical Registered Nurse Relationship Specialty Start Date End Date Cole Kelley MD [address] [place] [phone] PCP - General documented as of this encounter
--- OUTSIDE RECORDS SUMMARY | 2024-08-08 09:45 | XMS_ITS | Clinical Summary ---
Author Organization [facility] Address [address] [place] [address] Care Team Providers Care Senior Executive Compensation Analyst Name Role Phone Cole Kelley MD Primary Care Provider Allergies Active Allergy [...] Zoster (Shingles) Vaccine (1 of 2) 10/12/2021 COVID-19 Vaccine (2 - 2023-2 5 season) 2023 08/21/2020 Influenza Vaccine 10/26/2024 12/09/2022, , 01/04/2019, Additional history exists Colonoscopy 02/07/2029 02/08/2024 Insurance MEDICARE PART A BLUE CROSS OUT OF STATE - PPO BLUE CROSS OUT OF [facility] MEDICARE PART A BLUE CROSS OUT OF [facility] - PPO Care Teams Senior Executive Compensation Analyst Relationship Specialty Start Date End Date Cole Kelley MD [address] [place] [address] [address] [place] [address] PCP - General
--- OUTSIDE RECORDS SUMMARY | 2024-08-08 09:45 | XMS_ITS | Data Portability ---
Author Organization [place] - [facility], [facility] Address [address] [place] [address] Assessment Encounter Date Assessment Date Assessment LastModified by Organization Details LastModified Time 06/23/2023 06/23/2023 X-RAYS: Five standing views of the bilateral feet and ankles were ordered, obtained and reviewed by me today at [facility], demonstrating stable cavus alignment without fracture. She has mild left TMT arthritis. IMPRESSION: Bilateral cavus feet, plantar fasciitis, right gastrocnemius contracture PLAN: I discussed these findings with the patient. I discussed the association between cavus foot alignment and plantar fasciitis as there is more tension on the plantar fascia. I have recommended calf stretching exercises on the right, supportive shoes and a new pair of custom molded orthotics from [employer] or [facility] depending on which facility takes her insurance. I will plan to see her back in 3-4 months for reevaluation to see how she is doing with her new orthotics. If conservative measures fail, we could consider performing a dorsiflexion first metatarsal osteotomy in conjunction with plantar fascial release and gastrocnemius recession on the right side. I described the dorsiflexion first metatarsal osteotomy technique and showed her this on her x-ray. All questions were answered. She understands and agrees with this plan. [email or web address] Not available 06/23/2023 09:47:49 Plan of Treatment Reminders Order Date Submit Date Provider Last Modified By Organization Details Last Modified Time Details Appointments None recorde d. Lab None recorde d. Referral None recorde d. Procedures None recorde d. Surgeries None recorde d. Imaging XR, foot, 3 or more view - RM 5-- new 3V FOOT WB, 2V ANKLE WB 024 06/23/19 24 [email or web address] Not available 4 10:03:15 XR, ankle, 2 view 024 06/23/19 24 [email or web address] Not available 4 10:03:15 Medication Orders None recorde d. Patient TargetsNo targets recorded. Patient InstructionsNo instructions recorded. Reason for Referral None Reported. Medical Equipment None Reported. Allergies Allergen ID Allergen Name Allergen Category Reaction Reaction Severity Criticality Documentation Date Start Date Code Code System Note Provider Name and Address Organization Details Recorded Time 973010 Compazine medicatio n Not available Not available Not available 06/23/[address] [facility], [facility] 4 09:51:24 011556 sumatript an medicatio n Not available Not available Not available 06/23/2023 45148 RxNorm [facility] 4 09:51:30 215185 Reglan medicatio n Not available Not available Not available 06/23/[address] [facility], [facility] 4 09:51:41 823237 Phenergan medicatio n Not available Not available Not available 06/23/20[address] [facility], [facility] 4 09:51:49 Medications Name Sig Start Date Stop Date Status Note LastModified by Organization Details LastModified Time cyclobenzapri ne 10 mg tablet TAKE 1 TABLET BY MOUTH EVERY DAY AT BEDTIME NEEDED FOR 90 DAYS active Not Available Not Available No t Available propranolol ER 160 mg capsule,24 hr,extended release active Not Available Not Available Not Available trazodone 50 mg tablet active Not Available Not Available No t Available sucralfate 1 gram tablet TAKE 1 TABLET BY MOUTH TWICE DAILY ON AN EMPTY STOMACH active Not Available Not Available No t Available lisinopril 20 mg tablet active Not Available Not Available No t Available prednisone 20 mg tablet TAKE TWO TABLETS BY MOUTH DAILY active Not Available Not Available No t Available amlodipine 5 mg tablet TAKE 1 TABLET BY MOUTH EVERY DAY FOR 30 DAYS active Not Available Not Available No t Available ketorolac 30 mg/mL (1 mL) injection solution ONE ML TO BE INJECTED AT ONSET OF MIGRAINE. NOT TO BE REPEATED FOR 24 HOURS active Not Available Not Available No t Available butalbital-ac etaminophen-c affeine 50 mg-325 mg-40 mg tablet active Not Available Not Available No t Available ondansetron 8 mg disintegratin g tablet DISSOLVE ONE TABLET AT ONSET OF NAUSEA-MAY REPEAT IN 12 HOURS active Not Available Not Available No t Available lorazepam 0.5 mg tablet TAKE ONE TABLET BY MOUTH TWICE A DAY IF NEEDED active Not Available Not Available No t Available Synthroid 25 mcg tablet active Not Available Not Available N ot Available cyanocobalami n (vit B-12) 1,000 mcg/mL injection solution active Not Available Not Available Not Available esomeprazole magnesium 40 mg capsule,delay ed release active Not Available Not Available N ot Available lisinopril 10 mg tablet active Not Available Not Available No t Available syringe (disposable) 3 mL TO BE USED FOR TORADOL INJECTION active Not Available Not Available No t Available BD Luer-Vicente Syringe 3 mL 25 gauge x 1 TO BE USED FOR KETOROLAC , ONE PER INJECTION active Not Available Not Available No t Available lisinopril 30 mg tablet TAKE 1 TABLET BY MOUTH EVERY DAY FOR 90 DAYS active Not Available Not Available No t Available gabapentin 300 mg capsule TAKE 3 CAPSULES BY MOUTH TWICE A DAY active Not Available Not Available No t Available lisinopril 40 mg tablet TAKE 1 TABLET BY MOUTH EVERY DAY FOR 30 DAYS active Not Available Not Available No t Available oxycodone 5 mg tablet TAKE 1 TABLET BY MOUTH EVERY 6 HOURS NEEDED FOR PAIN active Not Available Not Available No t Available estradiol 0.025 mg/24 hr semiweekly transdermal patch active Not Available Not Available Not Available nitrofurantoi n monohydrate/m acrocrystals 100 mg capsule TAKE 1 CAPSULE BY MOUTH TWICE DAILY active Not Available Not Available No t Available duloxetine 60 mg capsule,delay ed release active Not Available Not Available N ot Available BD SafetyGlide Needle 25 gauge x 5/8 TO BE USED WITH SYRINGE FOR KETOROLAC active Not Available Not Available No t Available Myrbetriq 50 mg tablet,extend ed release active Not Available Not Available N ot Available Ubrelvy 100 mg tablet ONE TABLET AT ONSET OF MIGRAINE , MAY REPEAT 2 HOURS AFTER MIGRAINE X ONE WITHIN SAME 24 HOURS active Not Available Not Available No t Available Trudhesa 0.725 mg/pump act. (4 mg/mL) nasal spray active Not Available Not Available Not Available Vitals Date Recorded Body height Body mass index (BMI) Body weight Provider Name and Address Organization Details Last Updated DateTime 06/23/2023 152.4 cm 26.4 kg/m2 63904.97 g ENRICO QUIROSFREDY Porter [place] - [place] [facility] 06/23/2023 09:51:15 Social History None recorded. Functional Status None recorded. Mental Status None recorded. Family History Nothing Reported. Medical History No medical history recorded. Gynecological HistoryNo gynecological history recorded. Obstetrics History GPAL:G 0 P 0 0 0 0 Past Encounters Encounter ID Performer Location Encounter Start Date Encounter Closed Date Diagnosis/Indication Diagnosis SNOMED-CT Code Diagnosis ICD10 Code Diagnosis Note [id number] MD [facility] [address] [place] [address] 06/23/2023 09:16:21 07/15/2023 12:07:46 Pain in both feet 7392418111 4573441 M79.671 M79.672 Bilateral plantar fasciitis 2002461736 4869611 M72.2 Acquired c avus deformity of foot 49255287 M21.6X9 Health Concerns Section Related Observation LastModified by Organization Detai ls LastModified Time None Recorded Concern Status LastModified by Organization Details LastModified Time None Recorded Advance Directives Directive None Recorded Payers Encounter Date Sequence Insurance Name Policy Number Policy Grey Covered Member ID Grey Member ID Guarantor Name 06/23/2023 1 [place]PO[place] [id number] A Reena Kam [id number] Reena Kam Notes Date Note Type Note Provider Name and Address Organization Details Recorded Time 06/23/2023 text/html Reena is a 52-year-old woman who is status post previous left plantar fascial release over the mid-arch, gastrocnemius recession and second TMT cortisone injection. Her surgery was in July 2017 and I last saw her in April 2018. She did well following surgery but her left plantar foot pain over her mid arch has recurred. She finds her pain manageable and experiences this about her bilateral feet. She has worn custom molded orthotics in the past and is long overdue for a new pair of custom molded orthotics. She is not a surgical mindset. Her pain level is 4-5/10. Her left dorsal midfoot pain has resolved. She is currently out of work. Past family, medical, social history and review of systems has been reviewed, updated and signed by me and is located in the patient? s chart. Colby Quintana MD [address] [place] [address] [address], [place], [address], [facility] - [place] [facility] 06/23/2023 10:17:36 OBGyn Episode No OBEpisode recorded.
--- OUTSIDE RECORDS SUMMARY | 2024-08-08 09:46 | XMS_ITS | Patient Health Record ---
Author Organization [facility] Address [address] [place] [address] Care Team Providers Care Meat Soaker Name Role Phone Ronald Rea Primary Care [...] OF KASSANDRA Rush/LOGAN Meyers BC[employer] [address] [place], [place] [id number] Reena Kam Self - patient is the insured BS OF [place]/OUT OF PLAN [address] [place], [place] [id number] Reena Kam Self - patient is the insured
--- OUTSIDE RECORDS SUMMARY | 2024-08-08 09:46 | XMS_ITS | Clinical Summary ---
Author Organization [facility] Address [address] [place] [address] Care Team Providers Care Loaf Counter Name Role Phone Jun Reyes MD Primary Care Provider [phone] Allergies Active Allergy Reactions Criticality Noted Date [...] maxillary sinusitis 08/08/2017 Overview (05/01/2023): Impression - [id number]: 46-year-old female with recurrent sinus infections. Her [...] age to complete this topic Care Teams Loaf Counter Relationship Specialty Start Date End Date Jun Reyes MD [address] [address] [facility] - General 11/01/22
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
--- OUTSIDE RECORDS SUMMARY | 2024-08-08 09:46 | XMS_ITS | Clinical Summary ---
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 Care Teams Global Account Director Relationship Specialty Start Date End Date Cole Kelley MD [address] [place] [id number] PCP - General Coring Machine Operator 01/03/15
[2024-08-08 10:27] LABS: MANUAL DIFF FLAG NO
[2024-08-08 10:32] LABS: Basophils Percent Auto 0.5 % (0-2); Eosinophils Absolute Auto 0.2 X10*3/uL (0.0-0.4); Eosinophils Percent Auto 2.9 % (0-4); Hematocrit 38.5 % (37.0-47.0); Hemoglobin 12.4 g/dl (12.0-16.0); Imm Gran Abs Auto 0.02 X10*3/uL (0.00-0.03); Imm Gran Pct Auto 0.4 % (0.0-0.4); Lymphocytes Absolute Auto 0.9 X10*3/uL (1.2-4.9); Lymphocytes Percent Auto 15.9 % (20-40); Mean Corpuscular HGB Conc 32.2 g/dl (31.0-35.0); Mean Corpuscular Hemoglobin 27.7 pg (27.0-33.0); Mean Corpuscular Volume 85.9 fL (80.0-98.0); Mean Platelet Volume 8.9 fL (9.4-12.3); Monocytes Absolute Auto 0.4 X10*3/uL (0.1-1.2); Monocytes Percent Auto 6.6 % (2-11); Neutrophils Absolute Auto 4.1 x10*3/uL (2.0-8.3); Neutrophils Percent Auto 73.7 % (45-73); Platelet Count 268 X10*3/uL (160-400); Red Blood Count 4.48 X10*6/uL (4.20-5.50); White Blood Count 5.6 X10*3/uL (4.8-10.8)
[2024-08-08 10:35] LABS: INTERNATIONAL NORM RATIO 0.9 (0.9-1.1); Prothrombin Time 10.5 SEC (10.9-12.4)
[2024-08-08 10:43] LABS: Anion Gap 11 (12-20); Blood Urea Nitrogen 15 mg/dL (9-16); Calcium 8.8 mg/dL (8.4-10.2); Carbon Dioxide 26 mmol/L (22-29); Chloride 105 mmol/L (96-108); Estimated Glomerular Filt Rate > 60; Glucose Random 96 mg/dL (60-115); Potassium 4.5 mmol/L (3.3-5.1); Sodium 137 mmol/L (135-145)
[2024-08-08] MEDS: iohexoL 300 MG/ML 50 ML INFUS..BTL 10 ML INTRAARTIC (13:12)
[2024-08-08] MEDS: oxyCODONE HCl Immed Release 5 MG TABLET PO (13:15)
[2024-08-08] MEDS: Acetaminophen 325 MG TABLET 650 MG PO (13:15)
== END 2024-08-08 14:20 | disposition home or self-care (01) ==
PROVIDERS: Radiology Diagnostic Radiology; PCP Internal Medicine; Visit Provider Physician Assistant
DX: M51.16 Intervertebral disc disorders with radiculopathy, lumbar region (principal); M51.360 Other intervertebral disc degeneration, lumbar region with discogenic back pain only; Z98.1 Arthrodesis status; M43.16 Spondylolisthesis, lumbar region; M41.86 Other forms of scoliosis, lumbar region; G47.33 Obstructive sleep apnea (adult) (pediatric); C73 Malignant neoplasm of thyroid gland; Z98.890 Other specified postprocedural states
CPT/HCPCS: 36415; 62304; 80048; 85025; 85610

== ENCOUNTER → 2024-08-08 10:39 | Outpatient (BNV) | payer BC, SELFPAY | PROVIDERS: PCP Internal Medicine; Visit Provider Radiology Diagnostic Radiology | DX: M54.50 Low back pain, unspecified (principal) | CPT/HCPCS: 62304 ==

== ENCOUNTER 2024-09-21 12:57 | Outpatient (REF) | payer BC, SELFPAY ==
--- NOTE | 2024-09-21 13:00 | EMG_ITS ---
Chief complaint: Numbness and pain both lower extremities History of lumbar surgery History of peripheral neuropathy at least 10 years Reason for referral: Evaluate for neuropathy versus radiculopathy Referred by: Cristino ROSADO Procedure done: Bilateral lower extremity NCS/EMG Precautions and/or limitations: Previous lumbar surgery The limb temperature was monitored continuously and remained between 32-36 degrees C during the performance of the NCS. Nerve Conduction Studies Anti Sensory Summary Table ?Stim Site NR Onset (ms) Norm Onset (ms) Peak (ms) Norm Peak (ms) O-P Amp (?V) Norm O-P Amp Site1 Site2 Delta-0 (ms) Dist (cm) Brian (m/s) Norm Brian (m/s) Left Sural Anti Sensory (Lat Mall) Calf ? 3.3 4.2 <4.0 6.9 >5.0 Calf Lat Mall 3.3 14.0 42 Right Sural Anti Sensory (Lat Mall) Calf ? 3.7 4.6 <4.0 15.4 >5.0 Calf Lat Mall 3.7 14.0 38 Motor Summary Table ?Stim Site NR Onset (ms) Norm Onset (ms) O-P Amp (mV) Norm O-P Amp iAmp (mV) Amp (1st) (%) Site1 Site2 Delta-0 (ms) Dist (cm) Brian (m/s) Norm Brian (m/s) Right Peroneal Motor (Ext Dig Brev) Ankle ? 4.5 <4.0 4.5 >2.5 5.4 100.0 Ankle Ext Dig Brev 4.5 0.0 B Fib ? 10.5 4.2 5.1 93.3 B Fib Ankle 6.0 28.5 48 >40 Poplt ? 11.6 4.2 5.1 93.3 Poplt B Fib 1.1 4.5 41 >40 Left Tibial Motor (Abd Diaz Brev) Ankle ? 4.2 <5 9.4 >2.5 14.1 100.0 Ankle Abd Diaz Brev 4.2 0.0 Knee ? 12.2 7.1 10.7 75.5 Knee Ankle 8.0 36.0 45 >40 Right Tibial Motor (Abd Diaz Brev) Ankle ? 4.8 <5 14.2 >2.5 20.4 100.0 Ankle Abd Diaz Brev 4.8 0.0 Knee ? 12.5 7.1 10.9 50.0 Knee Ankle 7.7 34.0 44 >40 EMG ?Side Muscle Nerve Root Ins Act Fibs Psw Amp Dur Poly Recrt Int Pat Comment Right AbdHallucis MedPlantar S1-2 Nml Nml Nml Nml Nml 0 Nml Complete Right AntTibialis Dp Br Peron L4-5 Nml Nml Nml Nml Nml 0 Nml Complete Right PostTibialis Tibial L5, S1 Nml Nml Nml Nml Nml 0 Nml Complete Right MedGastroc Tibial S1-2 Nml Nml Nml Nml Nml 0 Nml Complete Right VastusMed Femoral L2-4 Nml Nml Nml Nml Nml 0 Nml Complete Left AbdHallucis MedPlantar S1-2 Nml Nml Nml Nml Nml 0 Nml Complete Left AntTibialis Dp Br Peron L4-5 Nml Nml Nml Nml Nml 0 Nml Complete Left PostTibialis Tibial L5, S1 Nml Nml Nml Nml Nml 0 Nml Complete Left MedGastroc Tibial S1-2 Nml Nml Nml Nml Nml 0 Nml Complete Left VastusMed Femoral L2-4 Nml Nml Nml Nml Nml 0 Nml Complete FINDINGS: Right peroneal nerve showed prolonged distal latencies, normal amplitude, normal conduction velocity. No conduction block across fibular neck. Bilateral sural nerves showed prolonged peak latencies. All other nerves tested were within normal. Concentric needle EMG was performed in selected muscles of the bilateral lower extremity. Study did not reveal signs of electric abnormalities as shown in the table above. IMPRESSION: 1. This is an abnormal study. 2. There is electrodiagnostic evidence for sensorimotor peripheral neuropathy. 3. There is no electrodiagnostic evidence for peroneal neuropathy, tibial neuropathy. lumbosacral plexopathy, or lumbar radiculopathy. Thank you for your kind referral. Екатерина Leblanc MD, BELA Board Certified, [place] [employer] and [employer] (ABPMR) Board Certified, [place] [employer] Electro[employer] (ABEM) CODIN [id number] x2 MTDD
--- OUTSIDE RECORDS SUMMARY | 2024-09-21 13:34 | XMS_ITS | Clinical Summary ---
Author Organization [facility] Address [address] [place] [address] Care Team Providers Care Electric Motor Repairing Supervisor Name Role Phone Cole Santana MD Primary Care Provider [phone] Surgical History Surgery Date Site/Laterality Comments OTHER [...] age to complete this topic Care Teams Electric Motor Repairing Supervisor Relationship Specialty Start Date End Date Cole Santana MD PCP - General Material Expediter 01/03/15
== END 2024-09-21 12:58 | disposition home or self-care (01) ==
LOC: HO.NEURO 12:57
PROVIDERS: PCP Internal Medicine; Visit Provider Physician Assistant
DX: M51.360 Other intervertebral disc degeneration, lumbar region with discogenic back pain only (principal); Z98.890 Other specified postprocedural states; R20.0 Anesthesia of skin; M79.605 Pain in left leg; M79.604 Pain in right leg; R94.131 Abnormal electromyogram [EMG]
CPT/HCPCS: 95886; 95909

== ENCOUNTER → 2024-09-21 13:00 | Outpatient (BNV) | payer BC, SELFPAY | PROVIDERS: PCP Internal Medicine; Visit Provider Physical Medicine & Rehabilitation | DX: G90.09 Other idiopathic peripheral autonomic neuropathy (principal) | CPT/HCPCS: 95886; 95909 ==